=== PATIENT | female | born 1970 | race American Indian/Alaskan Native ===

== ENCOUNTER 2016-05-09 16:41 | Inpatient (IN) | payer MEDICAID ==
--- NOTE | 2016-05-09 17:57 | Emergency Department Report ---
Chief Complaint: Abdominal Pain Stated Complaint: RIGHT SIDE ABD PAIN Time Seen by Provider: 05/09/16 17:53 - HPI History of Present Illness: Patient reports low right abdominal pain, fever, N/V that started 05/02/16. Patient was recently discharged from the hospital on 04/27/16 for abdominal pain - ROS Review of Systems: all other systems are unremarkable except for documentation in HPI - Exam Vital Signs: Vital Signs 05/09/16 17:25 Temperature 98.1 F Pulse Rate 114 H Respiratory 24 Rate Blood Pressure 185/101 O2 Sat by Pulse 95 Oximetry Physical Exam: Gen: obese, uncomfortable Abd: soft, obese, tenderness to palpation RLQ, bowel sounds present, no rebound , guarding or rigid MSE screening note: Focused history and physical exam performed. Due to findings the following was ordered: antiemetic, radiology and laboratory studies ordered ED Disposition for MSE Condition: Stable Instructions: Abdominal Pain (ED)
[2016-05-09] MEDS ORDERED: ZOFRAN ODT PO ONE (18:02)
[2016-05-09 18:59] LABS: Basophils % (Auto) 0.4 % (0.0-1.8); Eosinophils % (Auto) 0.8 % (0.0-4.3); Hematocrit 35.4 % (30.3-42.9); Hemoglobin 11.1 gm/dl (10.1-14.3); Mean Corpuscular HGB Conc 31 % (30-34); Mean Corpuscular Volume 77 fl (79-97); Platelet Count 458 K/mm3 (140-440); Red Blood Count 4.62 M/mm3 (3.65-5.03); Red Cell Distribution Width 19.8 % (13.2-15.2); White Blood Count 12.4 K/mm3 (4.5-11.0)
[2016-05-09 19:10] LABS: INR 1.06 (0.87-1.13)
[2016-05-09 19:11] LABS: Mean Corpuscular Hemoglobin 24 pg (28-32); Partial Thromboplastin Time 33.2 Sec. (24.2-36.6)
[2016-05-09 19:33] LABS: Alanine Aminotransferase 8 units/L (7-56); Albumin 3.6 g/dL (3.9-5); Albumin/Globulin Ratio 0.7 %; Alkaline Phosphatase 57 units/L (35-129); BUN/Creatinine Ratio 8.57; Bilirubin,Total 0.3 mg/dL (0.1-1.2); Blood Urea Nitrogen 6 mg/dL (7-17); Calcium 9.1 mg/dL (8.4-10.2); Carbon Dioxide 27 mmol/L (22-30); Chloride 96.9 mmol/L (98-107); Glucose 136 mg/dL (65-100); Lipase 19 units/L (13-60); Potassium 3.5 mmol/L (3.6-5.0); Sodium 139 mmol/L (137-145); Total Protein 8.6 g/dL (6.3-8.2)
[2016-05-09 19:43] LABS: Anion Gap 19 mmol/L
--- NOTE | 2016-05-09 22:24 | Ultrasound Report ---
FINAL REPORT EXAM: US PELVIC COMPLETE HISTORY: right pelvic pain TECHNIQUE: Ultrasound pelvis transabdominal PRIORS: Comparison is dated April 22, 2016 FINDINGS: Uterus measures 11.8 x 5.5 x 5.7 centimeters At the fundus of the uterus there is a hypoechoic structure measuring 6.8 x 6.5 x 5.7 centimeters. Small this appears larger than on the prior exam however there is some limitation in the study due to patient body habitus. Endometrial stripe is not well visualized Right ovary is 7.6 x 6.[address] again there is some limitation in exam however ovarian torsion cannot be excluded. The ovary was not visualized on the prior study. The left ovary is not identified. IMPRESSION: Limited study due to patient body habitus Uterine fibroid which may be increased in size from prior exam. Enlarged uterus Left ovary not visualized The right ovary appears enlarged. It was not identified on the prior exam. Ovarian torsion cannot be excluded.
--- NOTE | 2016-05-09 22:25 | Ultrasound Report ---
FINAL REPORT EXAM: US TRANSVAGINAL HISTORY: right pelvic pain TECHNIQUE: Transvaginal ultrasound pelvis PRIORS: None. FINDINGS: Exam is limited. Uterus is incompletely visualized. Endometrial stripe is not measured. Multiple nabothian cysts are noted. The ovaries were not identified on transvaginal exam. IMPRESSION: Limited exam Nabothian cysts noted
[2016-05-09] MEDS ORDERED: TYLENOL PO ONE (23:16)
--- NOTE | 2016-05-10 02:11 | Admit Criteria Form ---
Admission Criteria Documentation: ABDOMINAL PAIN Clinical Indications for Admission to Inpatient Care (Place 'X' for any and all applicable criteria): Admission is indicated for ANY ONE of the following(1)(2)(3)(4)(5): [ ]I. Inpatient admission required rather than observation care (Also use Abdominal Pain: Observation Care, as appropriate) because of ANY ONE of the following: [ ]a) Severe pain requiring acute inpatient management [ ]b) Identification of etiology/finding that requires inpatient care (eg, aortic dissection, free air) [ ]c) Absent bowel sounds with complete ileus(6) [ ]d) Suspected toxic megacolon [ ]e) Severe electrolyte abnormalities requiring inpatient care [ ]f) High fever or infection requiring inpatient admission as indicated by ANY ONE of following(7)(8): [ ] i) Appropriate outpatient or observational care antimicrobial treatment unavailable, not effective, or not feasible [ ] ii) Documented bacteremia [ ] iii) Temperature > 104.9 degrees F (oral) [ ] iv) T >103.1 F (oral) or < 96.8 F(rectal) that does not respond to all emergency treatment measures [ ]g) Signs of intestinal obstruction [B] [ ]h) Hemodynamic instability [ ]i) IV fluid to replace significant ongoing losses (greater than 3 L/m2 per day) (12)(13) [ ]j) Percutaneous or open drainage (eg, abscess, biliary tract ) procedures [ ]k) Parenteral nutrition regimen that must be implemented on inpatient basis [ ]l) Other condition,treatment or monitoring requiring inpatient admission. [ ]II. Peritoneal signs present [ ]III. Surgery needed that cannot be performed on an ambulatory basis. [ ]IV. Evaluation requires patient to not eat or drink for extended period ( eg, more than 24 hours). [ ]V. Contraindications and/or Inappropriate clinical situations for Observational Care in patients with abdominal pain, when ANY ONE of the following is required: [ ]a) Thorough evaluation is required to prevent catastrophic events due to delays in diagnosing (e.g.Mesenteric ischemia) 1,3 [ ]b) Patient with severe pathology or with chronic symptoms unlikely to improve in the ED stay (3) [X]. General contraindications and/or Inappropriate clinical situations for Observational Care in patients with abdominal pain, when ANY ONE of the following is required: [ ]a) Prediction of prolongation of LOS based on ANY ONE of the following may be considered as a contraindication for observational care 2, 3, 4, 5, 6, 7, 8, 9, 10, 11 [ ]i) Age > 65 yrs. [ ]ii) Patient arriving by ambulance [ ]iii) Patient with high acuity [ ]iv) Patient requiring vital sign monitoring [ ]v) Patient on IV medication [X ]b) Systolic blood pressures 180mmHg 3,12 [ ]c) Patient with altered mental status including delirium and other alteration of consciousness, (3) [ ]d) Patient whose discharge disposition will be to a intermediate home or rehabilitation home should not be managed in Emergency Department Observation Unit. CMS rule requires 3 days hospital stay before such placement.3,13 [ ]e) Patient with failure to thrive due to broad array of etiologies 3,16,17 [ ]f) Inability to ambulate 3,14 Extended stay beyond goal length of stay may be needed for(2)(3): [ ]a) Persistent abdominal pain with suspected intra-abdominal process [ ]b) Diagnosed condition requiring continued stay (e.g., pancreatitis, complicated diverticulitis) [ ]c) Surgery (e.g., colectomy) The original [employer] content created by [employer] has been revised. The portions of the content which have been revised are identified through the use of italic text or in bold, and [facility] has neither reviewed nor approved the modified material.All other unmodified content is copyright [employer]. Please see references footnoted in the original [employer] edition 2016 Admission Criteria Met: Yes
[2016-05-10] MEDS ORDERED: MORPHINE IV ONE (03:31)
[2016-05-10] MEDS ORDERED: ZOFRAN IV ONE (03:31)
--- NOTE | 2016-05-10 03:42 | Emergency Department Report ---
HPI - General Chief Complaint: Abdominal Pain - HPI HPI: Room 5 The patient is a 46-year-old female presenting with a chief complaint of right lower quadrant abdominal pain. The patient was recently admitted to the hospital and discharged 04/19/2016 for right lower quadrant abdominal pain that was believed to be secondary to right ovarian vein thrombophlebitis. The patient was discharged on Augmentin but it appears she may have missed a few days as she states she still has Augmentin currently. The patient states her pain never went away after discharge and gradually began to increase. 3 days ago the pain became more severe. The patient admits to subjective fever in addition to nausea vomiting and diarrhea which she believes may have been secondary to some of the medication. The patient currently gives her pain a score of 10/10. The patient states yesterday the charge nurse from the floor where she was admitted called her to check on her. The patient informed her that her pain had worsened and the charge nurse instructed the patient to come back to the emergency department Location: Right Lower quadrant Duration: [see above] Quality: Sharp Severity: 10/10 Modifying factors: [see above] Context: [see above] Mode of transportation: [not driving] ED Past Medical Hx - Past Medical History Hx Hypertension: Yes Hx CVA: Yes Hx Asthma: Yes Additional medical history: anemia - Surgical History Additional Surgical History: , R knee surgery, right wrist surgery - Family History Family history: no significant - Social History Smoking Status: Never Smoker Substance Use Type: None - Medications Home Medications: Home Medications Medication Instructions Recorded Confirmed Last Taken Type NIFEdipine 90 mg PO DAILY 05/17/13 04/22/16 04/22/16 History Diazepam Tab [Valium] 5 mg PO TID PRN #15 tablet 02/17/15 04/22/16 04/22/16 Rx Amoxicillin/K Clav Tab [Augmentin 1 tab PO Q12HR #20 tab 04/28/16 Unknown Rx 875 mg] Cyclobenzaprine [Flexeril 10 MG 10 mg PO Q8H PRN #10 tablet 04/28/16 Unknown Rx TAB] Oxycodone HCl/Acetaminophen 1 each PO Q6HR PRN #12 tablet 04/28/16 Unknown Rx [Percocet 10/325 mg] ED Review of Systems ROS: Stated complaint: RIGHT SIDE ABD PAIN Other details as noted in HPI Comment: All other systems reviewed and negative Constitutional: fever (subjective) Eyes: denies: eye pain, eye discharge, vision change ENT: denies: ear pain, throat pain Respiratory: denies: cough, shortness of breath, wheezing Cardiovascular: denies: chest pain, palpitations Endocrine: no symptoms reported Gastrointestinal: abdominal pain, nausea, vomiting, diarrhea Genitourinary: denies: urgency, dysuria, discharge Musculoskeletal: denies: back pain, joint swelling, arthralgia Skin: denies: rash, lesions Neurological: denies: headache, weakness, paresthesias Psychiatric: denies: anxiety, depression Hematological/Lymphatic: denies: easy bleeding, easy bruising Physical Exam - Physical Exam Vital Signs: Vital Signs 05/09/16 05/10/16 17:25 02:41 Temperature 98.1 F Pulse Rate 114 H Respiratory 24 20 Rate Blood Pressure 185/101 O2 Sat by Pulse 95 94 Oximetry Physical Exam: GENERAL: The patient is well-developed well-nourished male sitting on stretcher holding right lower quadrant appearing to be in moderate discomfort. [] HEENT: Normocephalic. Atraumatic. Extraocular motions are intact. Patient has moist mucous membranes. NECK: Supple. Trachea midline CHEST/LUNGS: Clear to auscultation. There is no respiratory distress noted. HEART/CARDIOVASCULAR: Regular. There is no tachycardia. There is no gallop rub or murmur. ABDOMEN: Abdomen is soft, discomfort in the right lower quadrant. There is no tenderness to palpation elsewhere in the abdomen. Patient has normal bowel sounds. There is no abdominal distention. SKIN: There is no rash. There is no edema. There is no diaphoresis. NEURO: The patient is awake, alert, and oriented. The patient is cooperative. The patient has normal speech MUSCULOSKELETAL: There is no evidence of acute injury. ED Course Vital Signs 05/09/16 05/10/16 17:25 02:41 Temperature 98.1 F Pulse Rate 114 H Respiratory 24 20 Rate Blood Pressure 185/101 O2 Sat by Pulse 95 94 Oximetry ED Medical Decision Making - Lab Data Result diagrams: 05/09/16 18:36 05/09/16 18:36 Laboratory Tests 05/09/16 05/09/16 05/09/16 18:36 18:36 18:36 WBC 12.4 H RBC 4.62 Hgb 11.1 Hct 35.4 MCV 77 L MCH 24 L MCHC 31 RDW 19.8 H Plt Count 458 H Lymph % (Auto) 19.3 [place] % (Auto) 4.1 Eos % (Auto) 0.8 Baso % (Auto) 0.4 Lymph # 2.4 [place] # 0.5 Eos # 0.1 Baso # 0.0 Seg Neutrophils % 75.4 H Seg Neutrophils # 9.4 H PT 13.7 INR 1.06 APTT 33.2 Sodium 139 Potassium 3.5 L Chloride 96.9 L Carbon Dioxide 27 Anion Gap 19 BUN 6 L Creatinine 0.7 Estimated GFR > 60 BUN/Creatinine Ratio 8.57 Glucose 136 H Calcium 9.1 Total Bilirubin 0.3 AST 11 ALT 8 Alkaline Phosphatase 57 Total Protein 8.6 H Albumin 3.6 L Albumin/Globulin Ratio 0.7 Lipase 19 HCG, Quant 05/09/16 18:36 WBC RBC Hgb Hct MCV MCH MCHC RDW Plt Count Lymph % (Auto) [place] % (Auto) Eos % (Auto) Baso % (Auto) Lymph # [place] # Eos # Baso # Seg Neutrophils % Seg Neutrophils # PT INR APTT Sodium Potassium Chloride Carbon Dioxide Anion Gap BUN Creatinine Estimated GFR BUN/Creatinine Ratio Glucose Calcium Total Bilirubin AST ALT Alkaline Phosphatase Total Protein Albumin Albumin/Globulin Ratio Lipase HCG, Quant < 2 - Differential Diagnosis ovarian vein thrombophlebitis, renal colic Critical care attestation.: If time is entered above; I have spent that time in minutes in the direct care of this critically ill patient, excluding procedure time. ED Disposition Clinical Impression: Right lower quadrant abdominal pain, Leukocytosis Disposition: OP ADMITTED IP TO THIS HOSP Is pt being admited?: Yes Does the pt Need Aspirin: No Condition: Fair Instructions: Abdominal Pain (ED) Referrals: PRIMARY CARE, [Primary Care Provider] - 3-5 Days Time of Disposition: 05:44 (CT pending. Hospitalist paged)
--- NOTE | 2016-05-10 06:12 | Cat Scan Report ---
FINAL REPORT EXAM: CT ABDOMEN PELVIS W CON HISTORY: LOWER QUADRANT ABD PAIN TECHNIQUE: CT abdomen and pelvis performed. Images extend from diaphragm to pubic symphysis. 100 cc Omnipaque 300 IV was administered. No oral contrast was administered. Coronal and sagittal reformatted images were obtained. PRIORS: CT abdomen pelvis from 04/22/2016 and pelvic ultrasound 05/09/2016. FINDINGS: The visualized liver, spleen, pancreas, adrenal glands and kidneys demonstrate no significant abnormalities. Gallbladder is distended. No calcified gallstones are seen. There is inflammatory change in the right lower quadrant/right adnexal region. There is soft tissue prominence in the right adnexa which may reflect an enlarged right ovary. Although there is some inflammatory change adjacent to the appendix, the appendix is normal caliber. Inflammatory change likely emanates from the abnormality in the adnexal region. Again seen is some inflammatory change surrounding the right ovarian vein which appears to have increased in the interval. There is no abscess seen. There is no free intraperitoneal air. There is no abdominal aortic aneurysm. There is no evidence of intestinal obstruction. The bladder is unremarkable. IMPRESSION: Again seen is inflammatory change surrounding the right ovarian vein. This had appears slightly more prominent as compared to the prior. There is also increased inflammatory change and enlargement of the right ovary as compared to the prior. As suggested previously, ovarian venous phlebitis not excluded. Ovarian torsion is not excluded.
[2016-05-10 08:04] LABS: Bacteria,Urine 1+ /HPF (Negative); Bilirubin,Urine NEG (Negative); Blood,Urine NEG (Negative); Ketones,Urine NEG (Negative); Leukocyte Esterase,Urine LG (Negative); Mucus,Urine FEW /HPF; Nitrite,Urine NEG (Negative); Urobilinogen,Urine < 2.0 mg/dL (<2.0)
--- NOTE | 2016-05-10 08:17 | History and Physical Report ---
History of Present Illness Chief complaint: My stomach hurts on this side History of present illness: 46 YO female with MO, HTN, CVA, Asthma, Anemia, Obesity Hypoventillation Syndrome, right Ovarian Vein Thrombophlebitis presents to ED for evaluation. Pt states that she has been experiencing pain on her right side for the past 3 weeks. Pt states that the pain has become progressively worse over the past 3 days. Pt states that the pain in 02/07, localized to the RLQ. Pain not controlled with pain medication. Pt acknowledges subjective fever, Nausea, and vomiting, and inability to tolerate oral diet. Pt denies unintentional weight loss, night sweats, skin rashes, or recent ill contacts. Past History Past Medical History: anemia, hypertension, stroke Past Surgical History: , Other (Right Knee/Right Wrist surgery) Social history: , lives with family. denies: smoking, alcohol abuse Family history: diabetes, hypertension Medications and Allergies Allergies Allergy/AdvReac Type Severity Reaction Status Date / Time codeine Allergy Hives Verified 11/05/13 10:25 Home Medications Medication Instructions Recorded Confirmed Last Taken Type NIFEdipine 90 mg PO DAILY 05/17/13 05/10/16 04/22/16 History Diazepam Tab [Valium] 5 mg PO TID PRN #15 tablet 02/17/15 04/22/16 04/22/16 Rx Amoxicillin/K Clav Tab [Augmentin 1 tab PO Q12HR #20 tab 04/28/16 Unknown Rx 875 mg] Cyclobenzaprine [Flexeril 10 MG 10 mg PO Q8H PRN #10 tablet 04/28/16 Unknown Rx TAB] Oxycodone HCl/Acetaminophen 1 each PO Q6HR PRN #12 tablet 04/28/16 Unknown Rx [Percocet 10/325 mg] Review of Systems All systems: negative Gastrointestinal: abdominal pain, nausea, vomiting Exam - Constitutional Vitals: Temp Pulse Resp BP Pulse Ox 98.3 F 92 H 20 122/63 94 05/10/16 07:10 05/10/16 07:10 05/10/16 07:10 05/10/16 07:10 05/10/16 07:10 General appearance: Present: obese - EENT Eyes: Present: PERRL ENT: hearing intact, clear oral mucosa - Neck Neck: Present: supple, normal ROM - Respiratory Respiratory effort: normal Respiratory: bilateral: CTA - Cardiovascular Heart Sounds: Present: S1 & S2. Absent: rub, click - Extremities Extremities: pulses symmetrical, No edema Peripheral Pulses: within normal limits - Abdominal General gastrointestinal: Present: soft, non-tender, non-distended, normal bowel sounds Localized gastrointestinal: tender: RLQ Female genitourinary: Present: normal - Integumentary Integumentary: Present: clear, warm, dry - Musculoskeletal Musculoskeletal: gait normal, strength equal bilaterally - Psychiatric Psychiatric: appropriate mood/affect, intact judgment & insight - Neurologic Neurologic: CNII-XII intact, moves all extremities Results - Labs CBC & Chem 7: 05/09/16 18:36 05/09/16 18:36 Labs: Abnormal lab results 05/09/16 05/09/16 05/10/16 Range/Units 18:36 18:36 07:18 WBC 12.4 H (4.5-11.0) K/mm3 MCV 77 L (79-97) fl MCH 24 L (28-32) pg RDW 19.8 H (13.2-15.2) % Plt Count 458 H (140-440) K/mm3 Seg Neutrophils % 75.4 H (40.0-70.0) % Seg Neutrophils # 9.4 H (1.8-7.7) K/mm3 Potassium 3.5 L (3.6-5.0) mmol/L Chloride 96.9 L (98-107) mmol/L BUN 6 L (7-17) mg/dL Glucose 136 H (65-100) mg/dL Total Protein 8.6 H (6.3-8.2) g/dL Albumin 3.6 L (3.9-5) g/dL Urine WBC (Auto) 56.0 H (0.0-6.0) /HPF Assessment and Plan - Patient Problems (1) Sepsis due to urinary tract infection Current Visit: No Status: Acute Plan to address problem: IV abx, IVF, supportive care, serial lactate level, blood cultures, (2) Right lower quadrant abdominal pain Current Visit: Yes Status: Acute Plan to address problem: secondary to ovarian thrombophlebitis Pain control (3) Thrombophlebitis Current Visit: No Status: Acute Plan to address problem: Suspect thrombosis. Will treat with therapeutic lovenox, coumadin therapy, [employer] consult, serial abdominal exam. (4) Hypertension Current Visit: No Status: Chronic Qualifiers: Hypertension type: essential hypertension Qualified Code(s): I10 - Essential (primary) hypertension Plan to address problem: monitor bp q shift, (5) Morbid obesity Current Visit: No Status: Chronic Qualifiers: Obesity type: due to excess calories Qualified Code(s): E66.01 - Morbid ( severe) obesity due to excess calories Plan to address problem: Pt counseled regarding bariatric surgery. (6) DVT prophylaxis Current Visit: Yes Status: Acute
[2016-05-10] MEDS ORDERED: PROVENTIL IH PRN (08:45)
[2016-05-10] MEDS ORDERED: FLEXERIL PO PRN (08:49)
[2016-05-10] MEDS ORDERED: MOTRIN PO PRN (09:03)
[2016-05-10] MEDS ORDERED: PROCARDIA*For Tocolysis only PO SCH (10:00)
[2016-05-10] MEDS ORDERED: LOVENOX SUB-Q SCH (10:00)
[2016-05-10] MEDS ORDERED: LEVAQUIN 750MG/150ML 150 ML IV SCH (10:00)
[2016-05-10] MEDS ORDERED: TYLENOL PO PRN (11:00)
--- NOTE | 2016-05-10 12:50 | Consultation ---
History of Present Illness - Reason for Consult Consult date: 05/10/16 Right lower quadrant pain, enlarged right ovary - History of Present Illness This is a 46year old female, who was recently admitted for the same symptoms ~2weeks ago. At that time she was found to have possible right ovarian vein thrombophlebitis however her right ovary appeared normal. She improved and was allowed home to complete her course of antibiotics. Her pain has now recurred and now her CT scan, reviewed with Dr. López and campos [place], reveals increased inflammatory changes in the right adnexa and an enlarged right ovary. She admitted now for IV antibiotics and possible surgical intervention Past History Past Medical History: hypertension, pulmonary embolism, stroke Past Surgical History: (x3), Other (Right Knee/Right Wrist surgery) Social history: , lives with family. denies: smoking, alcohol abuse Family history: diabetes, hypertension Medications and Allergies Allergies Allergy/AdvReac Type Severity Reaction Status Date / Time codeine Allergy Hives Verified 11/05/13 10:25 Home Medications Medication Instructions Recorded Confirmed Last Taken Type NIFEdipine 90 mg PO DAILY 05/17/13 05/10/16 04/22/16 History Diazepam Tab [Valium] 5 mg PO TID PRN #15 tablet 02/17/15 04/22/16 04/22/16 Rx Amoxicillin/K Clav Tab [Augmentin 1 tab PO Q12HR #20 tab 04/28/16 Unknown Rx 875 mg] Cyclobenzaprine [Flexeril 10 MG 10 mg PO Q8H PRN #10 tablet 04/28/16 Unknown Rx TAB] Oxycodone HCl/Acetaminophen 1 each PO Q6HR PRN #12 tablet 04/28/16 Unknown Rx [Percocet 10/325 mg] Active Meds: Active Medications Acetaminophen (Tylenol) 650 mg PO Q4H PRN PRN Reason: Pain MILD(1-3)/Fever >100.5/ABDULLAHI Albuterol (Proventil) 2.5 mg IH Q3HRT PRN PRN Reason: Shortness Of Breath Cyclobenzaprine HCl (Flexeril) 10 mg PO Q8H PRN PRN Reason: Muscle Spasm Enoxaparin Sodium (Lovenox) 170 mg SUB-Q Q12HR SUSY Stop: 05/10/16 23:59 Last Admin: 05/10/16 10:48 Dose: 170 mg Levofloxacin/Dextrose (Levaquin 750mg/150ml) 150 mls @ 100 mls/hr IV Q24HR [facility] PRN Reason: Protocol Last Admin: 05/10/16 10:45 Dose: 100 mls/hr Ibuprofen (Motrin) 600 mg PO Q8H PRN PRN Reason: Pain, Moderate (4-6) Last Admin: 05/10/16 10:48 Dose: 600 mg Warfarin Sodium (Coumadin Pharmacy To Dose) 1 each PO PKCONSULT [facility] PRN Reason: Protocol Warfarin Sodium (Coumadin) 7.5 mg PO DAILY@1700 [facility] Exam - Constitutional Vitals: Temp Pulse Resp BP Pulse Ox 98.4 F 84 20 137/82 99 05/10/16 11:31 05/10/16 11:31 05/10/16 11:31 05/10/16 11:31 05/10/16 11:31 Results - Labs CBC & Chem 7: 05/09/16 18:36 05/09/16 18:36 - Imaging and Cardiology CT scan - pelvis: report reviewed, image reviewed (Ultrasound reports and images reviewed. ) Assessment and Plan - Patient Problems (1) Right ovarian enlargement Current Visit: Yes Status: Acute (2) Right lower quadrant abdominal pain Current Visit: Yes Status: Acute Plan to address problem: Options were reviewed with her: observation vs surgical intervention in the form if removing the ovary and other indicated procedures. Extensively discussed risks of surgery especially with her obesity that places her at higher risk for complications such as bleeding, infection or injury to her bowel or bladder. Explained her pain may persist or recur even after the ovary is removed. She was informed her ovary may be normal. She was alos informed she may require a laparotomy (make an incision through her previous section incision) to perform the surgery. Questions were encouraged and answered. At this time she desires to proceed with surgery after medical clearance has been obtained. Consent was reviewed and signed. Plan of care discussed with Dr. Pham, awaiting medical clearance Will consult Dr. Franz to determine if she needs an appendectomy Continue antibiotics Hold Lovenox and warfarin (3) Asthma Current Visit: No Status: Chronic (4) Hypertension Current Visit: No Status: Chronic Qualifiers: Hypertension type: essential hypertension Qualified Code(s): I10 - Essential (primary) hypertension (5) Morbid obesity Current Visit: No Status: Chronic Qualifiers: Obesity type: due to excess calories Qualified Code(s): E66.01 - Morbid ( severe) obesity due to excess calories (6) History of pulmonary embolism Current Visit: No Status: Acute
--- NOTE | 2016-05-10 16:59 | Event Note ---
Date: 05/10/16 Patient evaluated.ABG ordered. Pending ABG she is medically cleared. Duonebs ordered.
[2016-05-10] MEDS ORDERED: COUMADIN PO SCH (17:00)
--- NOTE | 2016-05-10 17:09 | Anesthesia Consultation ---
Anesthesia Consult and Med Hx - Airway Anesthetic Teeth Evaluation: Good ROM Head & Neck: Adequate Mental/Hyoid Distance: Adequate Mallampati Class: Class III Intubation Access Assessment: Possibly Difficult - Pulmonary Exam CTA: Yes - Cardiac Exam Cardiac Exam: RRR - Pre-Operative Health Status ASA Pre-Surgery Classification: ASA3 Proposed Anesthetic Plan: General - Pulmonary Hx Asthma: Yes (inhaler PRN) SOB: Yes (hx of PE) COPD: No Hx Pneumonia: No Hx Sleep Apnea: Yes (on CPAP trial) - Cardiovascular System Hx Hypertension: Yes - Central Nervous System CVA: Yes (5 years ago , no residual weakness) - Gastrointestinal Hx Gastroesophageal Reflux Disease: Yes (takes no Meds) - Endocrine Hx End Stage Renal Disease: No - Hematic Hx Anemia: Yes - Other Systems Hx Obesity: Yes (Morbid Obesity BMI 74.4) - Additional Comments Anesthesia Medical History Comments: No prior anesthesia problems. Hx of PE, CVA , HTN,Asthma,GERD. KELLE, sepsis from UTI, anemia, and Morbid Obesity. Pt instructed as of NPO status after MN tonight.
--- NOTE | 2016-05-10 23:47 | Consultation ---
HISTORY OF PRESENT ILLNESS: I was called by Dr. Mahoney to see this patient. She is an obese lady. She is 46. She was in this hospital about 3 weeks ago because of pain to the right ____ abdomen. She was found to have? thrombosis of ovarian vein on the right side. The patient went home and apparently today she came with severe pain to the area. She had nausea, but no vomiting. She had a CAT scan that showed some edema of the right ovary? a cystic area, but the appendix did not look that bad. I was called to evaluate her to make sure that the appendix was normal. The patient had no free intraperitoneal air. She had no aneurysm and there was no evidence for any intestinal obstruction and the bladder was unremarkable. She was admitted by Dr. Keshav Pham. She had anemia and she has a case of asthma with CVA, with hypoventilation syndrome. PHYSICAL EXAMINATION: GENERAL: Showed an obese female. VITAL SIGNS: Her BMI is 74. The BSA is 2.8. She weighs 172 kg. She is 5 feet. HEAD AND NECK: Essentially negative. NECK: Supple. CHEST: Essentially clear to me. HEART: Sound normal. BREASTS: Symmetrical. ABDOMEN: Protuberant, soft, benign. Moderate to severe tenderness in the right lower quadrant area, good bowel sounds. EXTREMITIES: Showed no evidence of any edema. 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 I doubt whether there is any appendicitis in that area. I had a lengthy talk with the patient. Dr. Mahoney asked me to be with her in surgery tomorrow to evaluate that area with a scope. The patient gives a history of section in the past. JOB# [id number] DONALDOK/PAVEL
[2016-05-11] MEDS ORDERED: PROVENTIL IH NR (00:01)
[2016-05-11] MEDS ORDERED: LACTATED RINGERS 1,000 ML IV SCH ×2 (00:01→13:00)
[2016-05-11] MEDS ORDERED: PEPCID PO NR ×3 (00:01→07:05)
[2016-05-11] MEDS ORDERED: VERSED IV NR (00:01)
[2016-05-11] MEDS ORDERED: ANCEF/STERILE WATER 2 GM/20 ML 20 ML IV NR (05:30)
[2016-05-11] MEDS ORDERED: ZEMURON IV ONE ×3 (06:50→10:21)
[2016-05-11] MEDS ORDERED: XYLOCAINE MPF 2% ONE (06:50)
[2016-05-11] MEDS ORDERED: SUBLIMAZE ONE ×2 (06:50→11:37)
[2016-05-11] MEDS ORDERED: DIPRIVAN 10 MG/ML IV ONE (06:51)
[2016-05-11] MEDS ORDERED: VERSED ONE (06:59)
[2016-05-11] MEDS ORDERED: NEURONTIN PO NR (07:05)
[2016-05-11] MEDS ORDERED: NACL 0.9% 1000 ML 1,000 ML IV SCH (07:05)
[2016-05-11] MEDS ORDERED: VALIUM PO ONE (07:06)
--- NOTE | 2016-05-11 07:08 | Anesthesia Day of Surgery ---
Anesthesia Day of Surgery - Day of Surgery Patient Examined: Yes Patient H&P Reviewed: Yes Patient is NPO: Yes
[2016-05-11] MEDS ORDERED: NACL BACTERIOSTATIC INFILTRATI ONE (07:43)
[2016-05-11 08:02] LABS: ISTAT Base Excess 4; ISTAT HCO3 28.7; ISTAT PCO2 44.8 (35-45); ISTAT PH 7.414 (7.35-7.45); ISTAT PO2 115 (80-105); ISTAT SO2 99; ISTAT TCO2 30
[2016-05-11] MEDS ORDERED: NACL 0.9% ONE (08:17)
[2016-05-11] MEDS ORDERED: ROBINUL ONE (08:17)
[2016-05-11] MEDS ORDERED: NACL 0.9% 1000 ML ONE (08:17)
[2016-05-11] MEDS ORDERED: QUELICIN ONE (08:17)
[2016-05-11 08:26] LABS: INR 1.03 (0.87-1.13)
[2016-05-11 08:28] LABS: Basophils % (Auto) 0.2 % (0.0-1.8); Eosinophils % (Auto) 1.4 % (0.0-4.3); Hematocrit 28.8 % (30.3-42.9); Mean Corpuscular HGB Conc 31 % (30-34); Mean Corpuscular Hemoglobin 24 pg (28-32); Mean Corpuscular Volume 77 fl (79-97); Platelet Count 359 K/mm3 (140-440); Red Blood Count 3.74 M/mm3 (3.65-5.03); Red Cell Distribution Width 19.5 % (13.2-15.2); White Blood Count 12.1 K/mm3 (4.5-11.0)
[2016-05-11 08:34] LABS: Anion Gap 17 mmol/L; BUN/Creatinine Ratio 11.42; Blood Urea Nitrogen 8 mg/dL (7-17); Calcium 8.7 mg/dL (8.4-10.2); Carbon Dioxide 28 mmol/L (22-30); Chloride 99.5 mmol/L (98-107); Glucose 108 mg/dL (65-100); Potassium 3.7 mmol/L (3.6-5.0); Sodium 141 mmol/L (137-145)
[2016-05-11] MEDS ORDERED: NACL 0.9% IR ONE ×2 (09:39→10:00)
[2016-05-11] MEDS ORDERED: ZOFRAN ONE (09:54)
[2016-05-11] MEDS ORDERED: DECADRON ONE (09:54)
[2016-05-11] MEDS ORDERED: METHYLENE BLUE IV ONE (10:00)
[2016-05-11] MEDS ORDERED: WATER FOR IRRIG STERILE IR ONE (10:00)
[2016-05-11] MEDS ORDERED: NEOSPORIN GU IR ONE (10:00)
[2016-05-11] MEDS ORDERED: BLOXIVERZ ONE (11:07)
[2016-05-11] MEDS ORDERED: NEO SYNEPHRINE ONE (11:07)
[2016-05-11] MEDS ORDERED: ANCEF ONE (12:03)
[2016-05-11] MEDS ORDERED: NARCAN 0.4 MG/1 ML IV PRN (12:39)
[2016-05-11] MEDS ORDERED: ZOFRAN IV PRN (12:39)
--- NOTE | 2016-05-11 12:45 | Operative Report ---
PREOPERATIVE DIAGNOSIS: Pelvic mass. POSTOPERATIVE DIAGNOSES: Large pelvic abscess with a lot of scar tissue and adhesions. PROCEDURE: Intraoperative consultation with cystoscopy, bilateral stenting, and palpation of the ureter. SURGEONS: 1. Aditya Mcneil M.D. 2. Diann Mahoney MD ANESTHESIA: General. FINDINGS: This is a woman who is already asleep. She is morbidly obese with a large pelvic mass and that involved a lot of adhesions to the bowel. A urological consultation was obtained to just be sure that there was efflux from both ureters. DESCRIPTION OF PROCEDURE: The patient was brought to the operating room and placed on the operating table. Following induction of anesthesia, she underwent an exploratory laparotomy. During the procedure, there were lots of adhesions posteriorly and Urology was called. After the mass was excised, we came in and cystoscopy showed efflux from both orifices. A Glidewire easily went up on each ureter, we had an open-ended catheter placed in order to palpate them through the incision. The left ureter was easily palpated well away from the operative field. The right side where there was all this reactive tissue and infection it was hard to palpate, we could palpate the stent proximal towards the mid ureter and upper ureter. We did not open up the entire retroperitoneum to expose it. The patient tolerated the procedure well. She will be closed by Dr. Mahoney. There were no complications. We left the external stents adherent to the [place]. This can be removed by RESPITE CARE PROVIDER as discussed. Plan as per surgery and RESPITE CARE PROVIDER. JOB# [id number] PATTY/PAVEL
[2016-05-11] MEDS: DILAUDID IV PRN ×2 (13:00→13:05)
[2016-05-11] MEDS ORDERED: POLYCILLIN IM SCH (13:00)
[2016-05-11] MEDS: DILAUDID PCA 6MG/30ML IV SCH (13:09)
[2016-05-11] MEDS ORDERED: DILAUDID ONE (13:10)
[2016-05-11] MEDS ORDERED: NORMODYNE IV ONE ×2 (13:36→15:00)
--- NOTE | 2016-05-11 14:06 | Post Anesthesia Evaluation ---
- Post Anesthesia Evaluation Patient Participated: Yes Airway Patent: Yes Stable Respiratory Function: Yes Nausea/Vomiting: No Temp > 96.8F: Yes Pain Manageable: Yes Adequeate Hydration: Yes Anesthesia Complications: No Block Receding Appropriately: Not Applicable Patient on Ventilator: No
--- NOTE | 2016-05-11 14:18 | Progress Note ---
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 --Status post cystoscopy Continue supportive care --Urinary tract infection Continue IV antibiotics follow cultures --Hypertension; moderate control Recurrent antihypertensives and when necessary medications --Morbid obesity Nighty modification and exercise as tolerated and weight reduction when patient is medically stable Patient may benefit by outpatient bariatric surgical procedure once medically stable --DVT prophylaxis With Lovenox consults and and recommendations noted and appreciated And of care discussed with the patient and her nurse as well as the case management History Interval history: Patient seen and evaluated Sameer underwent Diagnostic laparoscopy, laparoscopic lysis of adhesions, laparoscopic appendectomy, open laparotomy, small bowel resection, end-to-end anastomosis, cystoscopy, partial omentectomy, salpingo-oophorectomy. Patient is sedated complaints of pain Vital signs reviewed Hospitalist Physical - Constitutional Vitals: Temp Pulse Resp BP Pulse Ox 97.4 F L 82 24 132/87 96 05/11/16 12:52 05/11/16 13:45 05/11/16 13:45 05/11/16 13:45 05/11/16 13:45 General appearance: Present: no acute distress, well-nourished, obese (morbidly obese) - EENT Eyes: Present: PERRL, EOM intact - Neck Neck: Present: supple, normal ROM - Respiratory Respiratory effort: normal Respiratory: bilateral: diminished, negative: rales, rhonchi, wheezing - Cardiovascular Rhythm: regular Heart Sounds: Present: S1 & S2 - Extremities Extremities: No edema, normal temperature - Abdominal General gastrointestinal: tender, absent bowel sounds, other (surgical dressing , drain intact) - Integumentary Integumentary: Present: clear, warm - Psychiatric Psychiatric: appropriate mood/affect, cooperative - Neurologic Neurologic: CNII-XII intact, moves all extremities Results - Labs CBC & Chem 7: 05/12/16 05:27 05/12/16 05:27 Labs: Laboratory Last Values WBC 12.1 K/mm3 (4.5-11.0) H 05/11/16 07:50 RBC 3.74 M/mm3 (3.65-5.03) 05/11/16 07:50 Hgb 9.0 gm/dl (10.1-14.3) L 05/11/16 07:50 Hct 28.8 % (30.3-42.9) L D 05/11/16 07:50 MCV 77 fl (79-97) L 05/11/16 07:50 MCH 24 pg (28-32) L 05/11/16 07:50 MCHC 31 % (30-34) 05/11/16 07:50 RDW 19.5 % (13.2-15.2) H 05/11/16 07:50 Plt Count 359 K/mm3 (140-440) 05/11/16 07:50 Lymph % (Auto) 14.0 % (13.4-35.0) 05/11/16 07:50 [place] % (Auto) 4.0 % (0.0-7.3) 05/11/16 07:50 Eos % (Auto) 1.4 % (0.0-4.3) 05/11/16 07:50 Baso % (Auto) 0.2 % (0.0-1.8) 05/11/16 07:50 Lymph # 1.7 K/mm3 (1.2-5.4) 05/11/16 07:50 [place] # 0.5 K/mm3 (0.0-0.8) 05/11/16 07:50 Eos # 0.2 K/mm3 (0.0-0.4) 05/11/16 07:50 Baso # 0.0 K/mm3 (0.0-0.1) 05/11/16 07:50 Seg Neutrophils % 80.4 % (40.0-70.0) H 05/11/16 07:50 Seg Neutrophils # 9.7 K/mm3 (1.8-7.7) H 05/11/16 07:50 PT 13.4 Sec. (12.2-14.9) 05/11/16 07:50 INR 1.03 (0.87-1.13) 05/11/16 07:50 APTT 33.2 Sec. (24.2-36.6) 05/09/16 18:36 POC ABG pH 7.414 (7.35-7.45) 05/11/16 07:47 POC ABG pCO2 44.8 (35-45) 05/11/16 07:47 POC ABG pO2 115 (80-105) H 05/11/16 07:47 POC ABG HCO3 28.7 05/11/16 07:47 POC ABG Total CO2 30 05/11/16 07:47 POC ABG O2 Sat 99 05/11/16 07:47 POC ABG Base Excess 4 05/11/16 07:47 FiO2 32 % 05/11/16 07:47 Sodium 141 mmol/L (137-145) 05/11/16 07:50 Potassium 3.7 mmol/L (3.6-5.0) 05/11/16 07:50 Chloride 99.5 mmol/L (98-107) 05/11/16 07:50 Carbon Dioxide 28 mmol/L (22-30) 05/11/16 07:50 Anion Gap 17 mmol/L 05/11/16 07:50 BUN 8 mg/dL (7-17) 05/11/16 07:50 Creatinine 0.7 mg/dL (0.7-1.2) 05/11/16 07:50 Estimated GFR > 60 ml/min 05/11/16 07:50 BUN/Creatinine Ratio 11.42 % 05/11/16 07:50 Glucose 108 mg/dL (65-100) H 05/11/16 07:50 Lactic Acid 0.8 mmol/L (0.7-2.0) 05/10/16 10:40 Calcium 8.7 mg/dL (8.4-10.2) 05/11/16 07:50 Total Bilirubin 0.3 mg/dL (0.1-1.2) 05/09/16 18:36 AST 11 units/L (5-40) 05/09/16 18:36 ALT 8 units/L (7-56) 05/09/16 18:36 Alkaline Phosphatase 57 units/L (35-129) 05/09/16 18:36 Total Protein 8.6 g/dL (6.3-8.2) H 05/09/16 18:36 Albumin 3.6 g/dL (3.9-5) L 05/09/16 18:36 Albumin/Globulin Ratio 0.7 % 05/09/16 18:36 Lipase 19 units/L (13-60) 05/09/16 18:36 HCG, Quant < 2 mIU/mL (0-4) 05/09/16 18:36 Urine Color Yellow (Yellow) 05/10/16 07:18 Urine Turbidity Slightly-cloudy (Clear) 05/10/16 07:18 Urine pH 5.0 (5.0-7.0) 05/10/16 07:18 Urine Protein 100 mg/dl mg/dL (Negative) 05/10/16 07:18 Urine Glucose (UA) Neg mg/dL (Negative) 05/10/16 07:18 Urine Ketones Neg mg/dL (Negative) 05/10/16 07:18 Urine Blood Neg (Negative) 05/10/16 07:18 Urine Nitrite Neg (Negative) 05/10/16 07:18 Urine Bilirubin Neg (Negative) 05/10/16 07:18 Urine Urobilinogen < 2.0 mg/dL (<2.0) 05/10/16 07:18 Ur Leukocyte Esterase Lg (Negative) 05/10/16 07:18 Urine WBC (Auto) 56.0 /HPF (0.0-6.0) H 05/10/16 07:18 Urine RBC (Auto) 12.0 /HPF (0.0-6.0) 05/10/16 07:18 U Epithel Cells (Auto) 10.0 /HPF (0-13.0) 05/10/16 07:18 Urine Bacteria (Auto) 1+ /HPF (Negative) 05/10/16 07:18 Urine Mucus Few /HPF 05/10/16 07:18 Blood Type AB POSITIVE 05/11/16 07:50 Antibody Screen Negative 05/11/16 07:50
--- NOTE | 2016-05-11 15:40 | Operative Report ---
PREOPERATIVE DIAGNOSIS: Right pelvic mass, large right ovarian mass with abscess formation and infection with concretion of the appendix to that area. POSTOPERATIVE DIAGNOSIS: Right pelvic mass, large right ovarian mass with abscess formation and infection with concretion of the appendix to that area. SURGERY: Diagnostic laparoscopy, laparoscopic lysis of extensive adhesions, laparoscopic appendectomy, conversion to open laparotomy, small bowel resection with an end-to-end anastomosis, cystoscopy by Dr. Mcneil, partial omentectomy. ANESTHESIA: General. BLOOD LOSS: About 150 mL. COSURGEON: Diann Mahoney MD, who did the gynecological aspect of the operation. My involvement is the lysis with scope and small bowel resection and appendectomy with the scope. DESCRIPTION OF PROCEDURE: With the patient in supine position, prepped and draped in usual fashion. Dr. Mahoney started the case by putting 3 probes in the abdomen, one in the upper midline, one right lateral aspect, and one in left upper aspect. We could see the adhesions that were very dense to the omentum to the anterior abdominal wall with concretion. These were lysed slowly with the scope and the ultrasound and knife, Harmonic. After that maneuvering, I was able to see the large uterus. On the right side, the appendix was stuck to a concretion of severe inflammation and the mass appears good 6 x 6 x 6 cm. The whole area was matted together. While dissecting it, there was a loop of small intestine stuck to it. A small perforation was performed there, then we had to open. This was done via a midline incision from above the umbilicus to the suprapubic area, at which point, Dr. Mahoney took the removal of the right adnexal mass with an open technique. Then I did repair the small bowel by resecting a portion of it for about ____cm with an end-to-end anastomosis using for that purpose the CHARMAINE-75 with reinforcement with 3-0 Vicryl. We were well satisfied, the area was then irrigated with sterile normal saline. I left a drain into the pelvis through a small stab wound incision in the left lower quadrant. Then Dr. Mcneil came in to do his portion namely to ensure the integrity of the tract on that area. Then the wound was closed as per description of Dr. Mahoney. The patient withstood the operation well. She was transferred to the recovery room in good condition. JOB# [id number] TERESA/PAVEL
[2016-05-11] MEDS: REGLAN IV SCH ×2 (16:15→23:01)
[2016-05-11] MEDS: POLYCILLIN/NS 2 GM/100 ML 100 ML IV SCH ×2 (18:24→23:02)
[2016-05-11] MEDS: CLEOCIN 900 MG/50 mL 50 ML IV SCH ×2 (18:24→23:01)
[2016-05-11] MEDS: GARAMYCIN IV SCH (18:32)
[2016-05-11] MEDS: NACL 0.9% IV SCH (18:32)
--- NOTE | 2016-05-11 19:52 | Progress Note ---
Assessment and Plan - Patient Problems (1) PID (pelvic inflammatory disease) Current Visit: Yes Status: Acute Plan to address problem: s/p RSO con't triples routine post op care (2) Surgery follow-up Current Visit: Yes Status: Acute Plan to address problem: -pain seems controlled -con't NGT as per gen surgery orders/recommendations -routine post op care -pt currently stable. 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 She inquired about drinking water or ice chips and I advised that due to her just having bowel sx today, she would remain NPO. I d/w details of the sx and all questions were addressed and answered. Patient reports: pain well controlled, no flatus Objective - Vital Signs Latest vital signs: Vital Signs Temp Pulse Pulse Resp BP BP Pulse Ox 05/11/16 16:27 16 05/11/16 16:00 98.7 F 80 16 137/81 05/11/16 15:09 16 05/11/16 13:45 82 24 132/87 96 05/11/16 13:30 99 H 22 168/90 96 05/11/16 13:15 100 H 22 158/88 99 05/11/16 13:09 22 05/11/16 13:05 20 05/11/16 13:00 20 L 20 158/91 100 05/11/16 12:55 98 H 22 149/87 98 05/11/16 12:52 97.4 F L 101 H 20 163/83 98 05/11/16 08:05 16 05/11/16 07:55 99 05/11/16 07:20 98 F 91 H 16 158/77 98 05/11/16 00:00 98.3 F 88 20 132/79 99 Intake and Output 05/11/16 05/11/16 05/11/16 06:59 14:59 22:59 Intake Total 50 Output Total 250 Balance -200 Intake: IV 50 Oral 0 Output: Urine 250 Other: Total, Intake Amount 0 Voiding Method Toilet - Exam Lungs: Present: Normal air movement Abdomen: Present: soft. Absent: distention, guarding Incision: Present: normal, dry, intact - Labs Labs: Abnormal lab results 05/11/16 05/11/16 05/11/16 Range/Units 07:47 07:50 07:50 WBC 12.1 H (4.5-11.0) K/mm3 Hgb 9.0 L (10.1-14.3) gm/dl Hct 28.8 L D (30.3-42.9) % MCV 77 L (79-97) fl MCH 24 L (28-32) pg RDW 19.5 H (13.2-15.2) % Seg Neutrophils % 80.4 H (40.0-70.0) % Seg Neutrophils # 9.7 H (1.8-7.7) K/mm3 POC ABG pO2 115 H (80-105) Glucose 108 H (65-100) mg/dL
[2016-05-12] MEDS: LOVENOX SUB-Q SCH ×3 (05:03→22:00)
[2016-05-12] MEDS: REGLAN IV SCH (05:03)
[2016-05-12 06:08] LABS: Hematocrit 27.3 % (30.3-42.9); Hemoglobin 8.6 gm/dl (10.1-14.3); Mean Corpuscular HGB Conc 31 % (30-34); Mean Corpuscular Hemoglobin 25 pg (28-32); Mean Corpuscular Volume 78 fl (79-97); Platelet Count 407 K/mm3 (140-440); Red Cell Distribution Width 20.1 % (13.2-15.2); White Blood Count 12.9 K/mm3 (4.5-11.0)
[2016-05-12] MEDS ORDERED: PROVENTIL IH PRN ×2 (06:09→06:12)
[2016-05-12 06:10] LABS: INR 1.15 (0.87-1.13)
[2016-05-12 06:13] LABS: Anion Gap 17 mmol/L; BUN/Creatinine Ratio 12.85; Blood Urea Nitrogen 9 mg/dL (7-17); Calcium 8.1 mg/dL (8.4-10.2); Carbon Dioxide 25 mmol/L (22-30); Chloride 101.9 mmol/L (98-107); Glucose 149 mg/dL (65-100); Sodium 139 mmol/L (137-145)
[2016-05-12] MEDS: POLYCILLIN/NS 2 GM/100 ML 100 ML IV SCH ×3 (06:21→17:08)
[2016-05-12] MEDS: CLEOCIN 900 MG/50 mL 50 ML IV SCH ×3 (06:21→22:00)
--- NOTE | 2016-05-12 09:04 | Progress Note ---
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 --Status post cystoscopy Continue supportive care --Urinary tract infection Continue IV antibiotics follow cultures --Hypertension; moderate control Recurrent antihypertensives and when necessary medications --Morbid obesity Nighty modification and exercise as tolerated and weight reduction when patient is medically stable Patient may benefit by outpatient bariatric surgical procedure once medically stable --DVT prophylaxis With Lovenox consults and and recommendations noted and appreciated plan of care discussed with the patient and her nurse as well as the case management History Interval history: Patient seen and evaluated medical records reviewed No new events reported by the nursing staff Complains of some pain Alert awake oriented 3 in mild distress secondary to pain Vital signs reviewed Hospitalist Physical - Constitutional Vitals: Temp Pulse Resp BP Pulse Ox 98.3 F 99 H 20 171/83 96 05/12/16 08:00 05/12/16 08:00 05/12/16 08:00 05/12/16 08:00 05/12/16 08:00 General appearance: Present: no acute distress, well-nourished, obese (morbidly obese) - EENT Eyes: Present: PERRL, EOM intact - Neck Neck: Present: supple, normal ROM - Respiratory Respiratory effort: normal Respiratory: bilateral: diminished, negative: rales, rhonchi, wheezing - Cardiovascular Rhythm: regular Heart Sounds: Present: S1 & S2 - Extremities Extremities: no ischemia, pulses intact, pulses symmetrical - Abdominal General gastrointestinal: soft, non-tender, non-distended, absent bowel sounds - Integumentary Integumentary: Present: clear, warm - Psychiatric Psychiatric: appropriate mood/affect, cooperative - Neurologic Neurologic: CNII-XII intact, moves all extremities Results - Labs CBC & Chem 7: 05/12/16 05:27 05/12/16 05:27 Labs: Laboratory Last Values WBC 12.9 K/mm3 (4.5-11.0) H 05/12/16 05:27 RBC 3.50 M/mm3 (3.65-5.03) L 05/12/16 05:27 Hgb 8.6 gm/dl (10.1-14.3) L 05/12/16 05:27 Hct 27.3 % (30.3-42.9) L 05/12/16 05:27 MCV 78 fl (79-97) L 05/12/16 05:27 MCH 25 pg (28-32) L 05/12/16 05:27 MCHC 31 % (30-34) 05/12/16 05:27 RDW 20.1 % (13.2-15.2) H 05/12/16 05:27 Plt Count 407 K/mm3 (140-440) 05/12/16 05:27 Lymph % (Auto) 6.8 % (13.4-35.0) L 05/12/16 05:27 [place] % (Auto) 4.7 % (0.0-7.3) 05/12/16 05:27 Eos % (Auto) 0.0 % (0.0-4.3) 05/12/16 05:27 Baso % (Auto) 0.0 % (0.0-1.8) 05/12/16 05:27 Lymph # 0.9 K/mm3 (1.2-5.4) L 05/12/16 05:27 [place] # 0.6 K/mm3 (0.0-0.8) 05/12/16 05:27 Eos # 0.0 K/mm3 (0.0-0.4) 05/12/16 05:27 Baso # 0.0 K/mm3 (0.0-0.1) 05/12/16 05:27 Seg Neutrophils % 88.5 % (40.0-70.0) H 05/12/16 05:27 Seg Neutrophils # 11.4 K/mm3 (1.8-7.7) H 05/12/16 05:27 PT 14.6 Sec. (12.2-14.9) 05/12/16 05:27 INR 1.15 (0.87-1.13) H 05/12/16 05:27 APTT 33.2 Sec. (24.2-36.6) 05/09/16 18:36 POC ABG pH 7.414 (7.35-7.45) 05/11/16 07:47 POC ABG pCO2 44.8 (35-45) 05/11/16 07:47 POC ABG pO2 115 (80-105) H 05/11/16 07:47 POC ABG HCO3 28.7 05/11/16 07:47 POC ABG Total CO2 30 05/11/16 07:47 POC ABG O2 Sat 99 05/11/16 07:47 POC ABG Base Excess 4 05/11/16 07:47 FiO2 32 % 05/11/16 07:47 Sodium 139 mmol/L (137-145) 05/12/16 05:27 Potassium 5.0 mmol/L (3.6-5.0) D 05/12/16 05:27 Chloride 101.9 mmol/L (98-107) 05/12/16 05:27 Carbon Dioxide 25 mmol/L (22-30) 05/12/16 05:27 Anion Gap 17 mmol/L 05/12/16 05:27 BUN 9 mg/dL (7-17) 05/12/16 05:27 Creatinine 0.7 mg/dL (0.7-1.2) 05/12/16 05:27 Estimated GFR > 60 ml/min 05/12/16 05:27 BUN/Creatinine Ratio 12.85 % 05/12/16 05:27 Glucose 149 mg/dL (65-100) H 05/12/16 05:27 Lactic Acid 0.8 mmol/L (0.7-2.0) 05/10/16 10:40 Calcium 8.1 mg/dL (8.4-10.2) L 05/12/16 05:27 Total Bilirubin 0.3 mg/dL (0.1-1.2) 05/09/16 18:36 AST 11 units/L (5-40) 05/09/16 18:36 ALT 8 units/L (7-56) 05/09/16 18:36 Alkaline Phosphatase 57 units/L (35-129) 05/09/16 18:36 Total Protein 8.6 g/dL (6.3-8.2) H 05/09/16 18:36 Albumin 3.6 g/dL (3.9-5) L 05/09/16 18:36 Albumin/Globulin Ratio 0.7 % 05/09/16 18:36 Lipase 19 units/L (13-60) 05/09/16 18:36 HCG, Quant < 2 mIU/mL (0-4) 05/09/16 18:36 Urine Color Yellow (Yellow) 05/10/16 07:18 Urine Turbidity Slightly-cloudy (Clear) 05/10/16 07:18 Urine pH 5.0 (5.0-7.0) 05/10/16 07:18 Urine Protein 100 mg/dl mg/dL (Negative) 05/10/16 07:18 Urine Glucose (UA) Neg mg/dL (Negative) 05/10/16 07: Urine Ketones Neg mg/dL (Negative) 05/10/16 07:18 Urine Blood Neg (Negative) 05/10/16 07:18 Urine Nitrite Neg (Negative) 05/10/16 07:18 Urine Bilirubin Neg (Negative) 05/10/16 07:18 Urine Urobilinogen < 2.0 mg/dL (<2.0) 05/10/16 07:18 Ur Leukocyte Esterase Lg (Negative) 05/10/16 07:18 Urine WBC (Auto) 56.0 /HPF (0.0-6.0) H 05/10/16 07:18 Urine RBC (Auto) 12.0 /HPF (0.0-6.0) 05/10/16 07:18 U Epithel Cells (Auto) 10.0 /HPF (0-13.0) 05/10/16 07:18 Urine Bacteria (Auto) 1+ /HPF (Negative) 05/10/16 07:18 Urine Mucus Few /HPF 05/10/16 07:18 Blood Type AB POSITIVE 05/11/16 07:50 Antibody Screen Negative 05/11/16 07:50
[2016-05-12] MEDS: DIFLUCAN 100 ML IV SCH (10:07)
[2016-05-12] MEDS: DILAUDID PCA 6MG/30ML IV SCH (10:40)
[2016-05-12] MEDS: NACL 0.9% IV SCH (15:00)
[2016-05-12] MEDS: GARAMYCIN IV SCH (15:00)
--- NOTE | 2016-05-12 15:14 | Operative Report ---
Operative Report Operative Report: Date of procedure: 05/11/2016 Pre-operative diagnosis: 1. Right lower quadrant pain 2. Enlarging right ovary CT scan report 3. Body mass index 74 Post-operative diagnosis: 1. Right lower quadrant pain 2. Enlarging right ovary 3. Body mass index 74 4. Severe extensive right pelvic, lower abdominal adhesions 5. Right tubo-ovarian abscess 6. Uterine fibroids Procedure name(s): 1. Laparoscopic lysis of adhesions 2. Laparoscopic appendectomy performed by Dr. Franz 3. Exploratory laparotomy a. Repair of enterotomy performed by Dr. Franz b. Lysis of adhesions c. Right salpingo-oophorectomy Surgeon: Diann Mahoney MD Co-surgeon(s): Dr. Samuel Tinsley Anesthesia: General anesthesia Findings: Omental adhesions to the anterior abdominal wall. Extensive and firm, hard adhesions of the small intestine to the right adnexa and pelvic sidewall and ovary. Appendix was also adhered to the superior aspect of the right adnexa. Right ovary was adhered to the right pelvic sidewall. Moderate amount of purulent fluid drained from the right tubo-ovarian structure during dissection. The sling normal left ovary and tube. Small uterine fibroids. Procedure: This is a 46-year-old female who presented with worsening right lower quadrant pain. She was recently admitted approximately 2 weeks ago with the same complaint. At that time she had what appeared to be normal ovaries but imaging and possible right ovarian vein thrombophlebitis. Due to her morbid obesity ovarian torsion was unable to be assessed. Her gonorrhea and chlamydia tests were negative. She received antibiotics and pain medicine and was allow home. Patient stated the pain increased and presented to the ED for further evaluation. CT scan now revealed a large right adnexal structure was not present during her previous evaluation. Options were reviewed with patient and she desired to proceed with surgical intervention. After risks, benefits, complication, consequences and alternatives were discussed the patient and she voiced her understanding and desired to proceed as taken to the OR. General anesthesia was induced. She was placed in the dorsolithotomy position. She was then prepped and draped in sterile fashion. A Deleon catheter was introduced into the bladder. A sponge stick was introduced into the vagina. Sterile gloves were placed and attention was turned to the abdomen. A midline supraumbilical incision was made and a 5 mm Optiview trocar with camera and laparoscope attached was introduced through this incision. No bowel, bladder, or major vascular or ureteral injury noted. She was slowly placed in mild Trendelenburg position. Omental adhesions to the anterior abdominal wall were noted. Additional trochars were placed as follows : 5 mm bladeless trochars were placed in the midclavicular lower abdominal region through 5 mm incisions under direct visualization. Again no bowel, bladder, and ureteral, or major vascular injury was noted. Using the 5 mm [place] LigaSure device the omental adhesions were removed. Initially the right pelvic sidewall anatomy was obscured by the small intestines that were adhered to the pelvic brim and adnexa. With both blunt and sharp dissection the bowel was released from the adnexa. At this point the appendix was recognized to be adhered to what appeared to be the pelvic brim as well as the right infundibular pelvic ligament. An additional 5 mm bladeless trocar was placed into an incision made in the midline through her previous incision below the umbilicus. Also a 12 mm bladless trocar was placed in the supraumbilical midline region approximately 2 cm above the umbilicus. The remainder of the bowel was released from the adnexa. An enterotomy was noted in the small intestines the decision was made to proceed with a laparotomy. Patient was taken out of Trendelenburg position, trochars were removed. The midline incision was made and extended to the fascia which was incised and extended to the superior-inferior direction. Incision was extended around the umbilicus for better visualization. The enterotomy was identified and resection was performed by Dr. Franz(please see Dr. Franz's operative report ) Then attention was turned to the right adnexa. There is extensive inflammatory changes and infection making the structures and anatomy markers difficult to identify. The tubo-ovarian structure was identified and dissected away from the pelvic sidewall. Moderate amount of purulent fluid drained from the abscess during resection. Then the right utero-ovarian ligament was clamped cut and suture ligated. Bleeding was noted on the pelvic sidewall that was made hemostatic with 0 Vicryl in figure of 8 interrupted suture. Then what appeared to be the infundibulopelvic ligament was clamped cut and suture ligated. An structure was removed. The pelvis was then irrigated with warm normal saline and hemostasis was noted. Jovanni was placed over the operative field. Due to concern for right ureteral injury, Dr. Mcneil was consulted.( Please refer to Dr. Mcneil this report) Once ureteral integrity was evaluated and appeared to be without injury, the abdomen and pelvis were again irrigated with warm normal saline. Seprafilm was placed. The fascia was reapproximated using 2 double-stranded PDS from the superior to midline and then the inferior to midline. The subcuticular adipose tissue was reapproximated using 0 Vicryl in interrupted [id number] suture. The skin incisions were approximated using surgical stainless steel khalif. The trocar incisions were reapproximated using 3-0 Monocryl in a subcuticular manner. Counts were correct. Patient tolerated procedure well stick to recovery room in stable condition
--- NOTE | 2016-05-12 16:40 | Progress Note ---
Assessment and Plan - Patient Problems (1) S/P unilateral salpingo-oophorectomy Current Visit: Yes Status: Acute Plan to address problem: Patient has (B) ureteral stents that accounts for bloody urine (2) S/P appendectomy Current Visit: Yes Status: Acute (3) Iatrogenic enterotomy Current Visit: Yes Status: Acute (4) Right ovarian enlargement Current Visit: Yes Status: Resolved (5) Right lower quadrant abdominal pain Current Visit: Yes Status: Resolved (6) Asthma Current Visit: No Status: Chronic (7) Hypertension Current Visit: No Status: Chronic Qualifiers: Hypertension type: essential hypertension Qualified Code(s): I10 - Essential (primary) hypertension (8) Morbid obesity Current Visit: No Status: Chronic Qualifiers: Obesity type: due to excess calories Qualified Code(s): E66.01 - Morbid ( severe) obesity due to excess calories (9) History of pulmonary embolism Current Visit: No Status: Inactive (10) DVT prophylaxis Current Visit: Yes Status: Acute (11) Anemia Current Visit: No Status: Chronic Qualifiers: Anemia type: other cause Subjective Date of service: 05/12/16 Principal diagnosis: POD #1 s/p RSO, Ex lap, dx laproscopy, laproscopic appendectomy,SB repair Interval history: Alert and appropriately responsive, desires to eat Objective - Constitutional Vitals: Vital Signs - 12hr 05/12/16 05/12/16 05/12/16 05:43 08:00 10:00 Temperature 98.7 F 98.3 F Pulse Rate [ 98 H 99 H Right Radial] Respiratory 20 20 Rate Blood Pressure 174/98 171/83 [Right Arm] O2 Sat by Pulse 100 96 98 Oximetry 05/12/16 05/12/16 12:00 16:08 Temperature 98.4 F 98.7 F Pulse Rate [ 100 H 102 H Right Radial] Respiratory 20 20 Rate Blood Pressure 162/79 159/75 [Right Arm] O2 Sat by Pulse Oximetry General appearance: Present: no acute distress, well-nourished - Respiratory Respiratory effort: normal Respiratory: negative: CTA - Breasts Breasts: deferred, normal - Cardiovascular Rhythm: regular Extremities: no ischemia, No edema - Genitourinary Female genitourinary: deferred - Integumentary Integumentary: clear, warm, dry (incision dressed/dry) - Psychiatric Psychiatric: appropriate mood/affect - Labs CBC & Chem 7: 05/12/16 05:27 05/12/16 05:27 Labs: Abnormal lab results 05/12/16 05/12/16 05/12/16 Range/Units 05:27 05:27 05:27 WBC 12.9 H (4.5-11.0) K/mm3 RBC 3.50 L (3.65-5.03) M/mm3 Hgb 8.6 L (10.1-14.3) gm/dl Hct 27.3 L (30.3-42.9) % MCV 78 L (79-97) fl MCH 25 L (28-32) pg RDW 20.1 H (13.2-15.2) % Lymph % (Auto) 6.8 L (13.4-35.0) % Lymph # 0.9 L (1.2-5.4) K/mm3 Seg Neutrophils % 88.5 H (40.0-70.0) % Seg Neutrophils # 11.4 H (1.8-7.7) K/mm3 INR 1.15 H (0.87-1.13) Glucose 149 H (65-100) mg/dL Calcium 8.1 L (8.4-10.2) mg/dL
[2016-05-13] MEDS: POLYCILLIN/NS 2 GM/100 ML 100 ML IV SCH ×4 (00:12→18:37)
[2016-05-13] MEDS: REGLAN IV SCH (00:13)
[2016-05-13] MEDS: CLEOCIN 900 MG/50 mL 50 ML IV SCH ×3 (05:30→22:10)
[2016-05-13 06:02] LABS: INR 1.19 (0.87-1.13)
[2016-05-13] MEDS: LOVENOX SUB-Q SCH ×2 (10:34→22:00)
[2016-05-13] MEDS: DIFLUCAN 100 ML IV SCH (10:35)
[2016-05-13] MEDS: D5W/0.45% NACL/KCL 20 MEQ 1,000 ML IV SCH (10:36)
--- NOTE | 2016-05-13 10:54 | Progress Note ---
Assessment and Plan Assessment and plan: --Abdominal pain/status post laparoscopic appendectomy/small bowel resection omentectomy Surgery following postoperative care Review fluids pain management wound care --Urinary tract infection Continue IV antibiotics follow cultures --Status post salpingo-oophorectomy Continue postoperative care [employer] GR[employer]ER following --Status post cystoscopy Continue supportive care --Hypertension; moderate control Recurrent antihypertensives and when necessary medications --Morbid obesity Nighty modification and exercise as tolerated and weight reduction when patient is medically stable Patient may benefit by outpatient bariatric surgical procedure once medically stable --DVT prophylaxis With Lovenox consults and and recommendations noted and appreciated plan of care discussed with the patient and her nurse as well as the case management History Interval history: Patient seen and evaluated medical records reviewed Patient feels slightly better no new complaints NG tube discontinued Alert awake oriented 3 not in acute distress Vital signs reviewed Hospitalist Physical - Constitutional Vitals: Temp Pulse Resp BP Pulse Ox 98.5 F 101 H 16 154/76 99 05/13/16 08:00 05/13/16 08:00 05/13/16 08:40 05/13/16 08:00 05/13/16 08:00 General appearance: Present: no acute distress, well-nourished, obese (morbidly obese) - EENT Eyes: Present: PERRL, EOM intact - Neck Neck: Present: supple, normal ROM - Respiratory Respiratory effort: normal Respiratory: bilateral: diminished, negative: rales, rhonchi, wheezing - Cardiovascular Rhythm: regular Heart Sounds: Present: S1 & S2 - Extremities Extremities: no ischemia, pulses intact, pulses symmetrical - Abdominal General gastrointestinal: soft, tender, absent bowel sounds - Integumentary Integumentary: Present: clear, warm - Psychiatric Psychiatric: appropriate mood/affect, cooperative - Neurologic Neurologic: CNII-XII intact, moves all extremities Results - Labs CBC & Chem 7: 05/12/16 05:27 05/12/16 05:27 Labs: Laboratory Last Values WBC 12.9 K/mm3 (4.5-11.0) H 05/12/16 05:27 RBC 3.50 M/mm3 (3.65-5.03) L 05/12/16 05:27 Hgb 8.6 gm/dl (10.1-14.3) L 05/12/16 05:27 Hct 27.3 % (30.3-42.9) L 05/12/16 05:27 MCV 78 fl (79-97) L 05/12/16 05:27 MCH 25 pg (28-32) L 05/12/16 05:27 MCHC 31 % (30-34) 05/12/16 05:27 RDW 20.1 % (13.2-15.2) H 05/12/16 05:27 Plt Count 407 K/mm3 (140-440) 05/12/16 05:27 Lymph % (Auto) 6.8 % (13.4-35.0) L 05/12/16 05:27 [place] % (Auto) 4.7 % (0.0-7.3) 05/12/16 05:27 Eos % (Auto) 0.0 % (0.0-4.3) 05/12/16 05:27 Baso % (Auto) 0.0 % (0.0-1.8) 05/12/16 05:27 Lymph # 0.9 K/mm3 (1.2-5.4) L 05/12/16 05:27 [place] # 0.6 K/mm3 (0.0-0.8) 05/12/16 05:27 Eos # 0.0 K/mm3 (0.0-0.4) 05/12/16 05:27 Baso # 0.0 K/mm3 (0.0-0.1) 05/12/16 05:27 Seg Neutrophils % 88.5 % (40.0-70.0) H 05/12/16 05:27 Seg Neutrophils # 11.4 K/mm3 (1.8-7.7) H 05/12/16 05:27 PT 15.0 Sec. (12.2-14.9) H 05/13/16 05:22 INR 1.19 (0.87-1.13) H 05/13/16 05:22 APTT 33.2 Sec. (24.2-36.6) 05/09/16 18:36 POC ABG pH 7.414 (7.35-7.45) 05/11/16 07:47 POC ABG pCO2 44.8 (35-45) 05/11/16 07:47 POC ABG pO2 115 (80-105) H 05/11/16 07:47 POC ABG HCO3 28.7 05/11/16 07:47 POC ABG Total CO2 30 05/11/16 07:47 POC ABG O2 Sat 99 05/11/16 07:47 POC ABG Base Excess 4 05/11/16 07:47 FiO2 32 % 05/11/16 07:47 Sodium 139 mmol/L (137-145) 05/12/16 05:27 Potassium 5.0 mmol/L (3.6-5.0) D 05/12/16 05:27 Chloride 101.9 mmol/L (98-107) 05/12/16 05:27 Carbon Dioxide 25 mmol/L (22-30) 05/12/16 05:27 Anion Gap 17 mmol/L 05/12/16 05:27 BUN 9 mg/dL (7-17) 05/12/16 05:27 Creatinine 0.7 mg/dL (0.7-1.2) 05/12/16 05:27 Estimated GFR > 60 ml/min 05/12/16 05:27 BUN/Creatinine Ratio 12.85 % 05/12/16 05:27 Glucose 149 mg/dL (65-100) H 05/12/16 05:27 Lactic Acid 0.8 mmol/L (0.7-2.0) 05/10/16 10:40 Calcium 8.1 mg/dL (8.4-10.2) L 05/12/16 05:27 Total Bilirubin 0.3 mg/dL (0.1-1.2) 05/09/16 18:36 AST 11 units/L (5-40) 05/09/16 18:36 ALT 8 units/L (7-56) 05/09/16 18:36 Alkaline Phosphatase 57 units/L (35-129) 05/09/16 18:36 Total Protein 8.6 g/dL (6.3-8.2) H 05/09/16 18:36 Albumin 3.6 g/dL (3.9-5) L 05/09/16 18:36 Albumin/Globulin Ratio 0.7 % 05/09/16 18:36 Lipase 19 units/L (13-60) 05/09/16 18:36 HCG, Quant < 2 mIU/mL (0-4) 05/09/16 18:36 Urine Color Yellow (Yellow) 05/10/16 07:18 Urine Turbidity Slightly-cloudy (Clear) 05/10/16 07: Urine pH 5.0 (5.0-7.0) 05/10/16 07:18 Urine Protein 100 mg/dl mg/dL (Negative) 05/10/16 07:18 Urine Glucose (UA) Neg mg/dL (Negative) 05/10/16 07:18 Urine Ketones Neg mg/dL (Negative) 05/10/16: Urine Blood Neg (Negative) 05/10/16: Urine Nitrite Neg (Negative) 05/10/16 07: Urine Bilirubin Neg (Negative) 05/10/16 07: Urine Urobilinogen < 2.0 mg/dL (<2.0) 05/10/16 07:18 Ur Leukocyte Esterase Lg (Negative) 05/10/16 07:18 Urine WBC (Auto) 56.0 /HPF (0.0-6.0) H 05/10/16 07:18 Urine RBC (Auto) 12.0 /HPF (0.0-6.0) 05/10/16 07:18 U Epithel Cells (Auto) 10.0 /HPF (0-13.0) 05/10/16 07:18 Urine Bacteria (Auto) 1+ /HPF (Negative) 05/10/16 07: Urine Mucus Few /HPF 05/10/16 07:18 Blood Type AB POSITIVE 05/11/16 07:50 Antibody Screen Negative 05/11/16 07:50
--- NOTE | 2016-05-13 11:10 | XRay Report ---
Portable chest: Postoperative respiratory changes. Comparison is made to the examination of April 21, 2016. The lungs appear clear. Right hilum is slightly more common than the left but this is not significantly changed from prior study and most likely is secondary to rotation. The heart is grossly normal in size with no vascular congestion. A nasogastric tube is in good position. Impression: No acute cardiopulmonary findings suspected.
[2016-05-13] MEDS: DILAUDID PCA 6MG/30ML IV SCH (12:06)
[2016-05-13] MEDS ORDERED: PROVENTIL IH PRN (12:46)
--- NOTE | 2016-05-13 13:11 | Progress Note ---
Assessment and Plan - Patient Problems (1) S/P unilateral salpingo-oophorectomy Current Visit: Yes Status: Acute Plan to address problem: UO good, becoming clear, will consider removing vidales and stents after NG is removed (2) S/P appendectomy Current Visit: Yes Status: Acute (3) Iatrogenic enterotomy Current Visit: Yes Status: Acute (4) Asthma Current Visit: No Status: Chronic (5) Hypertension Current Visit: No Status: Chronic Qualifiers: Hypertension type: essential hypertension Qualified Code(s): I10 - Essential (primary) hypertension (6) Morbid obesity Current Visit: No Status: Chronic Qualifiers: Obesity type: due to excess calories Qualified Code(s): E66.01 - Morbid ( severe) obesity due to excess calories (7) DVT prophylaxis Current Visit: Yes Status: Acute (8) Anemia Current Visit: No Status: Chronic Qualifiers: Anemia type: other cause Subjective Date of service: 05/13/16 Principal diagnosis: POD #2 s/p RSO, Ex lap, dx laproscopy, laproscopic appendectomy,SB repair Interval history: Resting in bed, alert and appropriately responsive, somewhat teary b/c she missed the of her granddaughter last pm. She started her period. States + flatus Objective - Constitutional Vitals: Vital Signs - 12hr 05/13/16 05/13/16 05/13/16 02:40 04:40 06:17 Temperature Pulse Rate [ Apical] Respiratory 20 20 20 Rate Blood Pressure [Right Arm] O2 Sat by Pulse Oximetry 05/13/16 05/13/16 05/13/16 06:46 08:00 08:40 Temperature 98.6 F 98.5 F Pulse Rate [ 102 H 101 H Apical] Respiratory 20 18 16 Rate Blood Pressure 155/86 154/76 [Right Arm] O2 Sat by Pulse 100 99 Oximetry 05/13/16 05/13/16 05/13/16 10:40 12:06 12:42 Temperature Pulse Rate [ Apical] Respiratory 16 18 Rate Blood Pressure [Right Arm] O2 Sat by Pulse 98 Oximetry 05/13/16 12:44 Temperature Pulse Rate [ Apical] Respiratory Rate Blood Pressure [Right Arm] O2 Sat by Pulse 98 Oximetry General appearance: Present: mild distress, obese - Respiratory Respiratory effort: normal Respiratory: bilateral: CTA (decreased at (B) base) - Breasts Breasts: deferred Extremities: no ischemia, No edema - Gastrointestinal General gastrointestinal: Present: normal bowel sounds - Genitourinary Female genitourinary: deferred - Integumentary Integumentary: clear, warm, dry (vertical incision dressed, no drainage, trocar incisions c/d/i) - Psychiatric Psychiatric: appropriate mood/affect - Labs CBC & Chem 7: 05/12/16 05:27 05/12/16 05:27 Labs: Abnormal lab results 05/13/16 Range/Units 05:22 PT 15.0 H (12.2-14.9) Sec. INR 1.19 H (0.87-1.13)
[2016-05-14] MEDS: D5W/0.45% NACL/KCL 20 MEQ 1,000 ML IV SCH (00:42)
[2016-05-14] MEDS: POLYCILLIN/NS 2 GM/100 ML 100 ML IV SCH ×4 (00:43→18:09)
[2016-05-14 05:59] LABS: Basophils % (Auto) 0.4 % (0.0-1.8); Eosinophils % (Auto) 1.5 % (0.0-4.3); Hematocrit 20.6 % (30.3-42.9); Hemoglobin 6.6 gm/dl (10.1-14.3); Mean Corpuscular HGB Conc 32 % (30-34); Mean Corpuscular Volume 77 fl (79-97); Platelet Count 336 K/mm3 (140-440); Red Blood Count 2.69 M/mm3 (3.65-5.03); Red Cell Distribution Width 19.8 % (13.2-15.2); White Blood Count 10.1 K/mm3 (4.5-11.0)
[2016-05-14 06:10] LABS: Mean Corpuscular Hemoglobin 25 pg (28-32)
[2016-05-14] MEDS: CLEOCIN 900 MG/50 mL 50 ML IV SCH ×3 (06:17→22:25)
[2016-05-14 06:20] LABS: BUN/Creatinine Ratio 11.66; Blood Urea Nitrogen 7 mg/dL (7-17); Calcium 8.4 mg/dL (8.4-10.2); Carbon Dioxide 34 mmol/L (22-30); Chloride 102.8 mmol/L (98-107); Glucose 122 mg/dL (65-100); Magnesium 1.7 mg/dL (1.7-2.3); Sodium 144 mmol/L (137-145)
[2016-05-14 06:24] LABS: Anion Gap 11 mmol/L
[2016-05-14 06:25] LABS: Potassium 3.7 mmol/L (3.6-5.0)
[2016-05-14] MEDS ORDERED: NACL 0.9% 500 ML 500 ML IV ONE (07:47)
--- NOTE | 2016-05-14 07:59 | Progress Note ---
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 --Status post cystoscopy, Continue supportive care --Hypertension; moderate control Recurrent antihypertensives and when necessary medications --Morbid obesity Nighty modification and exercise as tolerated and weight reduction when patient is medically stable Patient may benefit by outpatient bariatric surgical procedure once medically stable --DVT prophylaxis ,With Lovenox consults and and recommendations noted and appreciated plan of care discussed with the patient and her nurse as well as the case management Closely monitor H&H and transfuse additional PRBC if needed History Interval history: Patient seen and evaluated medical records reviewed No new events reported by the nursing staff of the patient Patient is cheerful sitting in chair Significant drop in H&H Alert awake oriented 3 not in acute distress vital signs reviewed Hospitalist Physical - Constitutional Vitals: Temp Pulse Resp BP Pulse Ox 98.3 F 90 18 138/80 100 05/13/16 16:30 05/13/16 16:30 05/13/16 16:30 05/13/16 16:30 05/13/16 16:30 General appearance: Present: no acute distress, well-nourished, obese (morbidly obese) - EENT Eyes: Present: PERRL, EOM intact - Neck Neck: Present: supple, normal ROM - Respiratory Respiratory effort: normal Respiratory: bilateral: diminished, negative: rales, rhonchi, wheezing - Cardiovascular Rhythm: regular Heart Sounds: Present: S1 & S2 - Extremities Extremities: no ischemia, pulses intact, pulses symmetrical - Abdominal General gastrointestinal: soft, non-tender, non-distended, hypoactive bowel sounds, other (surgical dressing intact) - Integumentary Integumentary: Present: clear, warm - Psychiatric Psychiatric: appropriate mood/affect, cooperative - Neurologic Neurologic: CNII-XII intact, moves all extremities Results - Labs CBC & Chem 7: 05/14/16 05:43 05/14/16 05:43 Labs: Laboratory Last Values WBC 10.1 K/mm3 (4.5-11.0) 05/14/16 05:43 RBC 2.69 M/mm3 (3.65-5.03) L 05/14/16 05:43 Hgb 6.6 gm/dl (10.1-14.3) L 05/14/16 05:43 Hct 20.6 % (30.3-42.9) L D 05/14/16 05:43 MCV 77 fl (79-97) L 05/14/16 05:43 MCH 25 pg (28-32) L 05/14/16 05:43 MCHC 32 % (30-34) 05/14/16 05:43 RDW 19.8 % (13.2-15.2) H 05/14/16 05:43 Plt Count 336 K/mm3 (140-440) 05/14/16 05:43 Lymph % (Auto) 24.5 % (13.4-35.0) 05/14/16 05:43 [place] % (Auto) 8.8 % (0.0-7.3) H 05/14/16 05:43 Eos % (Auto) 1.5 % (0.0-4.3) 05/14/16 05:43 Baso % (Auto) 0.4 % (0.0-1.8) 05/14/16 05:43 Lymph # 2.5 K/mm3 (1.2-5.4) 05/14/16 05:43 [place] # 0.9 K/mm3 (0.0-0.8) H 05/14/16 05:43 Eos # 0.2 K/mm3 (0.0-0.4) 05/14/16 05:43 Baso # 0.0 K/mm3 (0.0-0.1) 05/14/16 05:43 Seg Neutrophils % 64.8 % (40.0-70.0) 05/14/16 05:43 Seg Neutrophils # 6.5 K/mm3 (1.8-7.7) 05/14/16 05:43 PT 15.0 Sec. (12.2-14.9) H 05/13/16 05:22 INR 1.19 (0.87-1.13) H 05/13/16 05:22 APTT 33.2 Sec. (24.2-36.6) 05/09/16 18:36 POC ABG pH 7.414 (7.35-7.45) 05/11/16 07:47 POC ABG pCO2 44.8 (35-45) 05/11/16 07:47 POC ABG pO2 115 (80-105) H 05/11/16 07:47 POC ABG HCO3 28.7 05/11/16 07:47 POC ABG Total CO2 30 05/11/16 07:47 POC ABG O2 Sat 99 05/11/16 07:47 POC ABG Base Excess 4 05/11/16 07:47 FiO2 32 % 05/11/16 07:47 Sodium 144 mmol/L (137-145) 05/14/16 05:43 Potassium 3.7 mmol/L (3.6-5.0) D 05/14/16 05:43 Chloride 102.8 mmol/L (98-107) 05/14/16 05:43 Carbon Dioxide 34 mmol/L (22-30) H D 05/14/16 05:43 Anion Gap 11 mmol/L 05/14/16 05:43 BUN 7 mg/dL (7-17) 05/14/16 05:43 Creatinine 0.6 mg/dL (0.7-1.2) L 05/14/16 05:43 Estimated GFR > 60 ml/min 05/14/16 05:43 BUN/Creatinine Ratio 11.66 % 05/14/16 05:43 Glucose 122 mg/dL (65-100) H 05/14/16 05:43 Lactic Acid 0.8 mmol/L (0.7-2.0) 05/10/16 10:40 Calcium 8.4 mg/dL (8.4-10.2) 05/14/16 05:43 Magnesium 1.7 mg/dL (1.7-2.3) 05/14/16 05:43 Total Bilirubin 0.3 mg/dL (0.1-1.2) 05/09/16 18:36 AST 11 units/L (5-40) 05/09/16 18:36 ALT 8 units/L (7-56) 05/09/16 18:36 Alkaline Phosphatase 57 units/L (35-129) 05/09/16 18:36 Total Protein 8.6 g/dL (6.3-8.2) H 05/09/16 18:36 Albumin 3.6 g/dL (3.9-5) L 05/09/16 18:36 Albumin/Globulin Ratio 0.7 % 05/09/16 18:36 Lipase 19 units/L (13-60) 05/09/16 18:36 HCG, Quant < 2 mIU/mL (0-4) 05/09/16 18:36 Urine Color Yellow (Yellow) 05/10/16 07:18 Urine Turbidity Slightly-cloudy (Clear) 05/10/16 07:18 Urine pH 5.0 (5.0-7.0) 05/10/16 07:18 Urine Protein 100 mg/dl mg/dL (Negative) 05/10/16 07:18 Urine Glucose (UA) Neg mg/dL (Negative) 05/10/16 07:18 Urine Ketones Neg mg/dL (Negative) 05/10/16 07:18 Urine Blood Neg (Negative) 05/10/16 07:18 Urine Nitrite Neg (Negative) 05/10/16 07:18 Urine Bilirubin Neg (Negative) 05/10/16 07:18 Urine Urobilinogen < 2.0 mg/dL (<2.0) 05/10/16 07:18 Ur Leukocyte Esterase Lg (Negative) 05/10/16 07:18 Urine WBC (Auto) 56.0 /HPF (0.0-6.0) H 05/10/16 07:18 Urine RBC (Auto) 12.0 /HPF (0.0-6.0) 05/10/16 07:18 U Epithel Cells (Auto) 10.0 /HPF (0-13.0) 05/10/16 07:18 Urine Bacteria (Auto) 1+ /HPF (Negative) 05/10/16 07:18 Urine Mucus Few /HPF 05/10/16 07:18 Blood Type AB POSITIVE 05/11/16 07:50 Antibody Screen Negative 05/11/16 07:50
[2016-05-14] MEDS: DIFLUCAN 100 ML IV SCH (10:06)
[2016-05-14] MEDS: LOVENOX SUB-Q SCH ×2 (10:07→22:00)
--- NOTE | 2016-05-14 12:00 | Progress Note ---
Subjective Patient Reports: Positive: feels better, pain is less, flatus, no bowel movement Narrative: looks improving , ambulatory . noted Hg 6+ to recieve blood 2 units , Pt having her Period , on Ice chips , will advance diet . Objective Vital Signs - 12hr 05/14/16 09:38 O2 Sat by Pulse 99 Oximetry - Labs 05/14/16 05:43 05/14/16 05:43 Diabetes panel 05/14/16 Range/Units 05:43 Sodium 144 (137-145) mmol/L Potassium 3.7 D (3.6-5.0) mmol/L Chloride 102.8 (98-107) mmol/L Carbon Dioxide 34 H D (22-30) mmol/L BUN 7 (7-17) mg/dL Creatinine 0.6 L (0.7-1.2) mg/dL Glucose 122 H (65-100) mg/dL Calcium 8.4 (8.4-10.2) mg/dL Calcium panel 05/14/16 Range/Units 05:43 Calcium 8.4 (8.4-10.2) mg/dL Pituitary panel 05/14/16 Range/Units 05:43 Sodium 144 (137-145) mmol/L Potassium 3.7 D (3.6-5.0) mmol/L Chloride 102.8 (98-107) mmol/L Carbon Dioxide 34 H D (22-30) mmol/L BUN 7 (7-17) mg/dL Creatinine 0.6 L (0.7-1.2) mg/dL Glucose 122 H (65-100) mg/dL Calcium 8.4 (8.4-10.2) mg/dL Adrenal panel 05/14/16 Range/Units 05:43 Sodium 144 (137-145) mmol/L Potassium 3.7 D (3.6-5.0) mmol/L Chloride 102.8 (98-107) mmol/L Carbon Dioxide 34 H D (22-30) mmol/L BUN 7 (7-17) mg/dL Creatinine 0.6 L (0.7-1.2) mg/dL Glucose 122 H (65-100) mg/dL Calcium 8.4 (8.4-10.2) mg/dL
[2016-05-14] MEDS ORDERED: NACL 0.9% 500 ML 500 ML ONE ×2 (12:14→17:47)
--- NOTE | 2016-05-14 12:48 | Progress Note ---
Assessment and Plan - Patient Problems (1) Iatrogenic enterotomy Current Visit: Yes Status: Acute Plan to address problem: Care followed by Dr. Franz (2) S/P unilateral salpingo-oophorectomy Current Visit: Yes Status: Acute Plan to address problem: Patient postop course is progressing. NG tube has been removed. Blood transfusion of about to be started (3) Anemia due to blood loss, acute Current Visit: Yes Status: Acute Plan to address problem: Blood transfusion of about to be started Subjective Date of service: 05/14/16 Patient Reports: Positive: feels better, still having pain (Patient coming from bathroom), fever Objective Vital Signs - 12hr 05/14/16 09:38 O2 Sat by Pulse 99 Oximetry - General physical appearance moderate pain, obese - Respiratory normal respiratory effort - Abdomen soft, other (banishment small amount of blood present) - Integumentary no rash - Neurologic normal coordination - Psychiatric oriented to time, oriented to person, oriented to place, speech is normal, memory intact - Labs 05/14/16 05:43 05/14/16 05:43 Diabetes panel 05/14/16 Range/Units 05:43 Sodium 144 (137-145) mmol/L Potassium 3.7 D (3.6-5.0) mmol/L Chloride 102.8 (98-107) mmol/L Carbon Dioxide 34 H D (22-30) mmol/L BUN 7 (7-17) mg/dL Creatinine 0.6 L (0.7-1.2) mg/dL Glucose 122 H (65-100) mg/dL Calcium 8.4 (8.4-10.2) mg/dL Calcium panel 05/14/16 Range/Units 05:43 Calcium 8.4 (8.4-10.2) mg/dL Pituitary panel 05/14/16 Range/Units 05:43 Sodium 144 (137-145) mmol/L Potassium 3.7 D (3.6-5.0) mmol/L Chloride 102.8 (98-107) mmol/L Carbon Dioxide 34 H D (22-30) mmol/L BUN 7 (7-17) mg/dL Creatinine 0.6 L (0.7-1.2) mg/dL Glucose 122 H (65-100) mg/dL Calcium 8.4 (8.4-10.2) mg/dL Adrenal panel 05/14/16 Range/Units 05:43 Sodium 144 (137-145) mmol/L Potassium 3.7 D (3.6-5.0) mmol/L Chloride 102.8 (98-107) mmol/L Carbon Dioxide 34 H D (22-30) mmol/L BUN 7 (7-17) mg/dL Creatinine 0.6 L (0.7-1.2) mg/dL Glucose 122 H (65-100) mg/dL Calcium 8.4 (8.4-10.2) mg/dL
[2016-05-14] MEDS: DILAUDID PCA 6MG/30ML IV SCH (21:15)
[2016-05-15] MEDS: POLYCILLIN/NS 2 GM/100 ML 100 ML IV SCH ×4 (00:39→18:25)
[2016-05-15 05:37] LABS: Basophils % (Auto) 0.5 % (0.0-1.8); Eosinophils % (Auto) 3.1 % (0.0-4.3); Hematocrit 25.2 % (30.3-42.9); Hemoglobin 7.9 gm/dl (10.1-14.3); Mean Corpuscular HGB Conc 31 % (30-34); Mean Corpuscular Volume 79 fl (79-97); Platelet Count 343 K/mm3 (140-440); Red Blood Count 3.21 M/mm3 (3.65-5.03); Red Cell Distribution Width 18.6 % (13.2-15.2); White Blood Count 9.6 K/mm3 (4.5-11.0)
[2016-05-15 05:40] LABS: BUN/Creatinine Ratio 8.33; Blood Urea Nitrogen 5 mg/dL (7-17); Calcium 8.5 mg/dL (8.4-10.2); Carbon Dioxide 32 mmol/L (22-30); Chloride 101.1 mmol/L (98-107); Glucose 114 mg/dL (65-100); Magnesium 1.5 mg/dL (1.7-2.3); Phosphorous 2.9 mg/dL (2.5-4.5); Potassium 3.8 mmol/L (3.6-5.0); Sodium 143 mmol/L (137-145)
[2016-05-15 05:44] LABS: Anion Gap 14 mmol/L
[2016-05-15 05:47] LABS: Mean Corpuscular Hemoglobin 25 pg (28-32)
[2016-05-15] MEDS ORDERED: MAGNESIUM SULFATE 2GM/50ML 50 ML IV ONE (06:18)
[2016-05-15] MEDS: D5W/0.45% NACL/KCL 20 MEQ 1,000 ML IV SCH ×2 (06:40→23:30)
[2016-05-15] MEDS: CLEOCIN 900 MG/50 mL 50 ML IV SCH ×3 (06:41→22:35)
[2016-05-15] MEDS: LOVENOX SUB-Q SCH ×2 (09:15→22:35)
--- NOTE | 2016-05-15 10:09 | Progress Note ---
Assessment and Plan - Patient Problems (1) Iatrogenic enterotomy Current Visit: Yes Status: Acute Plan to address problem: Followed by Dr. Franz. He's also monitoring the advancement of her diet (2) S/P unilateral salpingo-oophorectomy Current Visit: Yes Status: Acute Plan to address problem: We will increase patient's ambulation and diet per Dr. Franz. Patient is afebrile. (3) Anemia due to blood loss, acute Current Visit: Yes Status: Acute Plan to address problem: Patient with increase in her hematocrit to 25% status post blood transfusion. Subjective Patient Reports: Positive: feels better, still having pain, pain is less, tolerating liquids well, voiding w/o difficulty, no flatus, afebrile Objective Vital Signs - 12hr 05/15/16 05/15/16 05/15/16 00:00 07:07 07:51 Temperature 98.2 F 98.4 F Pulse Rate [ 80 76 Right Radial] Respiratory 18 16 Rate Blood Pressure 175/88 171/91 [Right Arm] O2 Sat by Pulse 99 98 96 Oximetry - General physical appearance obese - Respiratory normal expansion - Abdomen soft, tender, other (bandages clean and dry) - Psychiatric oriented to time, oriented to person, oriented to place, speech is normal, memory intact - Labs 05/15/16 05:07 05/15/16 05:07 Diabetes panel 05/15/16 Range/Units 05:07 Sodium 143 (137-145) mmol/L Potassium 3.8 (3.6-5.0) mmol/L Chloride 101.1 (98-107) mmol/L Carbon Dioxide 32 H (22-30) mmol/L BUN 5 L (7-17) mg/dL Creatinine 0.6 L (0.7-1.2) mg/dL Glucose 114 H (65-100) mg/dL Calcium 8.5 (8.4-10.2) mg/dL Calcium panel 05/15/16 Range/Units 05:07 Calcium 8.5 (8.4-10.2) mg/dL Phosphorus 2.9 (2.5-4.5) mg/dL Pituitary panel 05/15/16 Range/Units 05:07 Sodium 143 (137-145) mmol/L Potassium 3.8 (3.6-5.0) mmol/L Chloride 101.1 (98-107) mmol/L Carbon Dioxide 32 H (22-30) mmol/L BUN 5 L (7-17) mg/dL Creatinine 0.6 L (0.7-1.2) mg/dL Glucose 114 H (65-100) mg/dL Calcium 8.5 (8.4-10.2) mg/dL Adrenal panel 05/15/16 Range/Units 05:07 Sodium 143 (137-145) mmol/L Potassium 3.8 (3.6-5.0) mmol/L Chloride 101.1 (98-107) mmol/L Carbon Dioxide 32 H (22-30) mmol/L BUN 5 L (7-17) mg/dL Creatinine 0.6 L (0.7-1.2) mg/dL Glucose 114 H (65-100) mg/dL Calcium 8.5 (8.4-10.2) mg/dL
[2016-05-15] MEDS ORDERED: MILK OF MAGNESIA PO ONE ×2 (10:35→15:00)
[2016-05-15] MEDS ORDERED: APRESOLINE IV ONE (11:55)
--- NOTE | 2016-05-15 11:58 | Progress Note ---
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 --Status post cystoscopy, Continue supportive care --Hypertension; moderate control Recurrent antihypertensives and when necessary medications --Morbid obesity Nighty modification and exercise as tolerated and weight reduction when patient is medically stable Patient may benefit by outpatient bariatric surgical procedure once medically stable --DVT prophylaxis ,With Lovenox consults and and recommendations noted and appreciated Physical therapy occupational therapy Consults recommendations noted and appreciated Plan of care discussed with the patient and family members at the bedside History Interval history: Patient seen and evaluated medical records reviewed No new events reported by the nursing staff received 2 units of PRBC Patient has no new complaints Hospitalist Physical - Constitutional Vitals: Temp Pulse Resp BP Pulse Ox 98.4 F 76 16 171/91 96 05/15/16 07:51 05/15/16 07:51 05/15/16 07:51 05/15/16 07:51 05/15/16 07:51 General appearance: Present: no acute distress, well-nourished, obese (morbidly obese) - EENT Eyes: Present: PERRL, EOM intact - Neck Neck: Present: supple, normal ROM - Respiratory Respiratory effort: normal Respiratory: bilateral: diminished, negative: rales, rhonchi, wheezing - Extremities Extremities: no ischemia, pulses intact, pulses symmetrical - Abdominal General gastrointestinal: soft, non-tender, non-distended, normal bowel sounds, hypoactive bowel sounds, other (surgical dressing intact) - Integumentary Integumentary: Present: clear, warm - Psychiatric Psychiatric: appropriate mood/affect, cooperative - Neurologic Neurologic: CNII-XII intact, moves all extremities Results - Labs CBC & Chem 7: 05/15/16 05:07 05/15/16 05:07 Labs: Laboratory Last Values WBC 9.6 K/mm3 (4.5-11.0) 05/15/16 05:07 RBC 3.21 M/mm3 (3.65-5.03) L 05/15/16 05:07 Hgb 7.9 gm/dl (10.1-14.3) L 05/15/16 05:07 Hct 25.2 % (30.3-42.9) L 05/15/16 05:07 MCV 79 fl (79-97) 05/15/16 05:07 MCH 25 pg (28-32) L 05/15/16 05:07 MCHC 31 % (30-34) 05/15/16 05:07 RDW 18.6 % (13.2-15.2) H 05/15/16 05:07 Plt Count 343 K/mm3 (140-440) 05/15/16 05:07 Lymph % (Auto) 31.8 % (13.4-35.0) 05/15/16 05:07 [place] % (Auto) 8.0 % (0.0-7.3) H 05/15/16 05:07 Eos % (Auto) 3.1 % (0.0-4.3) 05/15/16 05:07 Baso % (Auto) 0.5 % (0.0-1.8) 05/15/16 05:07 Lymph # 3.1 K/mm3 (1.2-5.4) 05/15/16 05:07 [place] # 0.8 K/mm3 (0.0-0.8) 05/15/16 05:07 Eos # 0.3 K/mm3 (0.0-0.4) 05/15/16 05:07 Baso # 0.0 K/mm3 (0.0-0.1) 05/15/16 05:07 Seg Neutrophils % 56.6 % (40.0-70.0) 05/15/16 05:07 Seg Neutrophils # 5.4 K/mm3 (1.8-7.7) 05/15/16 05:07 PT 15.0 Sec. (12.2-14.9) H 05/13/16 05:22 INR 1.19 (0.87-1.13) H 05/13/16 05:22 APTT 33.2 Sec. (24.2-36.6) 05/09/16 18:36 POC ABG pH 7.414 (7.35-7.45) 05/11/16 07:47 POC ABG pCO2 44.8 (35-45) 05/11/16 07:47 POC ABG pO2 115 (80-105) H 05/11/16 07:47 POC ABG HCO3 28.7 05/11/16 07:47 POC ABG Total CO2 30 05/11/16 07:47 POC ABG O2 Sat 99 05/11/16 07:47 POC ABG Base Excess 4 05/11/16 07:47 FiO2 32 % 05/11/16 07:47 Sodium 143 mmol/L (137-145) 05/15/16 05:07 Potassium 3.8 mmol/L (3.6-5.0) 05/15/16 05:07 Chloride 101.1 mmol/L (98-107) 05/15/16 05:07 Carbon Dioxide 32 mmol/L (22-30) H 05/15/16 05:07 Anion Gap 14 mmol/L 05/15/16 05:07 BUN 5 mg/dL (7-17) L 05/15/16 05:07 Creatinine 0.6 mg/dL (0.7-1.2) L 05/15/16 05:07 Estimated GFR > 60 ml/min 05/15/16 05:07 BUN/Creatinine Ratio 8.33 % 05/15/16 05:07 Glucose 114 mg/dL (65-100) H 05/15/16 05:07 Lactic Acid 0.8 mmol/L (0.7-2.0) 05/10/16 10:40 Calcium 8.5 mg/dL (8.4-10.2) 05/15/16 05:07 Phosphorus 2.9 mg/dL (2.5-4.5) 05/15/16 05:07 Magnesium 1.5 mg/dL (1.7-2.3) L 05/15/16 05:07 Total Bilirubin 0.3 mg/dL (0.1-1.2) 05/09/16 18:36 AST 11 units/L (5-40) 05/09/16 18:36 ALT 8 units/L (7-56) 05/09/16 18:36 Alkaline Phosphatase 57 units/L (35-129) 05/09/16 18:36 Total Protein 8.6 g/dL (6.3-8.2) H 05/09/16 18:36 Albumin 3.6 g/dL (3.9-5) L 05/09/16 18:36 Albumin/Globulin Ratio 0.7 % 05/09/16 18:36 Lipase 19 units/L (13-60) 05/09/16 18:36 HCG, Quant < 2 mIU/mL (0-4) 05/09/16 18:36 Urine Color Yellow (Yellow) 05/10/16 07:18 Urine Turbidity Slightly-cloudy (Clear) 05/10/16 07:18 Urine pH 5.0 (5.0-7.0) 05/10/16 07:18 Urine Protein 100 mg/dl mg/dL (Negative) 05/10/16 07:18 Urine Glucose (UA) Neg mg/dL (Negative) 05/10/16 07:18 Urine Ketones Neg mg/dL (Negative) 05/10/16 07:18 Urine Blood Neg (Negative) 05/10/16 07:18 Urine Nitrite Neg (Negative) 05/10/16 07:18 Urine Bilirubin Neg (Negative) 05/10/16 07:18 Urine Urobilinogen < 2.0 mg/dL (<2.0) 05/10/16 07:18 Ur Leukocyte Esterase Lg (Negative) 05/10/16 07:18 Urine WBC (Auto) 56.0 /HPF (0.0-6.0) H 05/10/16 07:18 Urine RBC (Auto) 12.0 /HPF (0.0-6.0) 05/10/16 07:18 U Epithel Cells (Auto) 10.0 /HPF (0-13.0) 05/10/16 07:18 Urine Bacteria (Auto) 1+ /HPF (Negative) 05/10/16 07:18 Urine Mucus Few /HPF 05/10/16 07:18 Blood Type AB POSITIVE 05/11/16 07:50 Antibody Screen Negative 05/11/16 07:50 Crossmatch See Detail 05/11/16 07:50
[2016-05-15] MEDS: APRESOLINE PO SCH ×2 (14:16→23:50)
[2016-05-15] MEDS: BENADRYL IV PRN (15:30)
[2016-05-15] MEDS: PROCARDIA XL PO SCH (23:50)
[2016-05-16] MEDS: POLYCILLIN/NS 2 GM/100 ML 100 ML IV SCH ×4 (00:18→18:25)
[2016-05-16] MEDS: DILAUDID PCA 6MG/30ML IV SCH (05:00)
[2016-05-16 05:48] LABS: Basophils % (Auto) 0.4 % (0.0-1.8); Eosinophils % (Auto) 3.6 % (0.0-4.3); Hematocrit 24.3 % (30.3-42.9); Hemoglobin 7.8 gm/dl (10.1-14.3); Mean Corpuscular HGB Conc 32 % (30-34); Mean Corpuscular Volume 78 fl (79-97); Platelet Count 344 K/mm3 (140-440); Red Blood Count 3.11 M/mm3 (3.65-5.03); Red Cell Distribution Width 18.8 % (13.2-15.2); White Blood Count 9.5 K/mm3 (4.5-11.0)
[2016-05-16 05:54] LABS: Mean Corpuscular Hemoglobin 25 pg (28-32)
[2016-05-16] MEDS: CLEOCIN 900 MG/50 mL 50 ML IV SCH ×3 (06:00→23:24)
[2016-05-16 06:07] LABS: BUN/Creatinine Ratio 6.66; Blood Urea Nitrogen 4 mg/dL (7-17); Calcium 8.7 mg/dL (8.4-10.2); Carbon Dioxide 34 mmol/L (22-30); Chloride 97.2 mmol/L (98-107); Glucose 133 mg/dL (65-100); Magnesium 1.5 mg/dL (1.7-2.3); Potassium 3.9 mmol/L (3.6-5.0); Sodium 141 mmol/L (137-145)
[2016-05-16 06:08] LABS: Anion Gap 14 mmol/L
[2016-05-16] MEDS: APRESOLINE PO SCH ×3 (06:45→23:25)
--- NOTE | 2016-05-16 09:10 | Progress Note ---
Assessment and Plan - Patient Problems (1) PID (pelvic inflammatory disease) Current Visit: Yes Status: Acute (2) Anemia due to blood loss, acute Current Visit: Yes Status: Acute Plan to address problem: s/p transfusion pt h/h stable at this time (3) Iatrogenic enterotomy Current Visit: Yes Status: Acute Plan to address problem: -doing well on advanced diet -con't care as per Dr. Franz (4) S/P appendectomy Current Visit: Yes Status: Acute Plan to address problem: -pt doing well on advanced diet -routine post op f/u as per Dr. Franz (5) S/P unilateral salpingo-oophorectomy Current Visit: Yes Status: Acute Plan to address problem: -routine post op care -doing well from claim investigator standpoint Subjective - Subjective Date of service: 05/16/16 Principal diagnosis: POD #5 s/p RSO, Ex lap, dx laproscopy, laproscopic appendectomy,SB repair Interval history: Pt sitting up in the bed stating that she is having some pain this am but "I am making it." She states she did not have an n/v with that diet but that she does not like the food at the hospital so has just been eating the pudding and drinking the booste. She denies any headaches, dizziness, or chest pain this am. Patient reports: appetite normal, voiding normally, pain well controlled, flatus , ambulating normally, no dizzy ambulation, no bowel movement, no nauseated Objective - Vital Signs Latest vital signs: Vital Signs Temp Pulse Pulse Resp BP BP Pulse Ox 05/16/16 07:52 97 05/16/16 06:45 86 135/84 05/16/16 04:00 98.6 F 85 18 162/78 100 05/16/16 00:00 98.8 F 78 18 189/106 99 05/15/16 23:50 78 189/106 05/15/16 21:29 98.6 F 84 18 191/95 100 05/15/16 20:06 100 05/15/16 15:00 98.4 F 74 18 155/95 05/15/16 12:30 141/98 05/15/16 10:00 18 96 Intake and Output 05/15/16 05/16/16 05/16/16 22:59 06:59 14:59 Intake Total 220 2827 Balance 220 2827 Intake: IV 2106 CLEOCIN 900 MG/50 mL 50 100 ML @ 100 mls/hr IV Q8HR [facility] Rx#:[id number] Polycillin/Ns 2 gm/100 ml 200 100 ml @ 100 mls/hr IV Q6HR S[facility] Rx#:[id number] D5w/0.45% NaCl/KCl 20 Meq 1807 1,000 ml @ 75 mls/hr IV DIRECT S[facility] Rx#: [id number] Oral 220 720 Other: Total, Intake Amount 120 720 Voiding Method Toilet # Voids Void 1 4 # Bowel Movements 0 0 Weight 179 kg Patient Weight 05/17/16 06:59 Weight 179 kg - Exam Lungs: Present: Normal air movement Abdomen: Present: normal appearance, soft, other (dressing in place this am). Absent: distention, tenderness Extremities: Present: normal, other. Absent: tenderness, edema Incision: Present: normal, dry, intact, dressed - Labs Labs: Abnormal lab results 05/11/16 05/16/16 05/16/16 Range/Units 07:50 05:22 05:22 RBC 3.11 L (3.65-5.03) M/mm3 Hgb 7.8 L (10.1-14.3) gm/dl Hct 24.3 L (30.3-42.9) % MCV 78 L (79-97) fl MCH 25 L (28-32) pg RDW 18.8 H (13.2-15.2) % [place] % (Auto) 7.9 H (0.0-7.3) % Chloride 97.2 L (98-107) mmol/L Carbon Dioxide 34 H (22-30) mmol/L BUN 4 L (7-17) mg/dL Creatinine 0.6 L (0.7-1.2) mg/dL Glucose 133 H (65-100) mg/dL Magnesium 1.5 L (1.7-2.3) mg/dL Crossmatch See Detail
[2016-05-16] MEDS ORDERED: MAGNESIUM SULFATE 2GM/50ML 50 ML IV ONE (09:31)
[2016-05-16] MEDS: LOVENOX SUB-Q SCH ×2 (11:32→23:17)
[2016-05-16] MEDS: PROCARDIA XL PO SCH ×2 (11:33→23:24)
[2016-05-16 11:53] LABS: Hematocrit 26.1 % (30.3-42.9); Hemoglobin 8.4 gm/dl (10.1-14.3); Mean Corpuscular HGB Conc 32 % (30-34); Mean Corpuscular Volume 77 fl (79-97); Platelet Count 363 K/mm3 (140-440); Red Blood Count 3.39 M/mm3 (3.65-5.03); Red Cell Distribution Width 18.5 % (13.2-15.2); White Blood Count 8.9 K/mm3 (4.5-11.0)
[2016-05-16 11:54] LABS: Mean Corpuscular Hemoglobin 25 pg (28-32)
[2016-05-16] MEDS ORDERED: MILK OF MAGNESIA PO ONE (12:50)
--- NOTE | 2016-05-16 12:50 | Progress Note ---
Subjective Patient Reports: Positive: feels better, still having pain, pain is less, flatus , no bowel movement Narrative: doing fine abd soft passing flatus ,no BM will give one more dose of MOM Objective Vital Signs - 12hr 05/16/16 05/16/16 05/16/16 04:00 06:45 07:52 Temperature 98.6 F Pulse Rate 86 Pulse Rate [ Apical] Pulse Rate [ 85 Right Radial] Respiratory 18 Rate Blood Pressure 135/84 Blood Pressure 162/78 [Right Arm] O2 Sat by Pulse 100 97 Oximetry 05/16/16 09:12 Temperature 98.4 F Pulse Rate Pulse Rate [ 82 Apical] Pulse Rate [ Right Radial] Respiratory 20 Rate Blood Pressure Blood Pressure 149/83 [Right Arm] O2 Sat by Pulse Oximetry - Labs 05/16/16 11:33 05/16/16 05:22 Diabetes panel 05/16/16 Range/Units 05:22 Sodium 141 (137-145) mmol/L Potassium 3.9 (3.6-5.0) mmol/L Chloride 97.2 L (98-107) mmol/L Carbon Dioxide 34 H (22-30) mmol/L BUN 4 L (7-17) mg/dL Creatinine 0.6 L (0.7-1.2) mg/dL Glucose 133 H (65-100) mg/dL Calcium 8.7 (8.4-10.2) mg/dL Calcium panel 05/16/16 Range/Units 05:22 Calcium 8.7 (8.4-10.2) mg/dL Pituitary panel 05/16/16 Range/Units 05:22 Sodium 141 (137-145) mmol/L Potassium 3.9 (3.6-5.0) mmol/L Chloride 97.2 L (98-107) mmol/L Carbon Dioxide 34 H (22-30) mmol/L BUN 4 L (7-17) mg/dL Creatinine 0.6 L (0.7-1.2) mg/dL Glucose 133 H (65-100) mg/dL Calcium 8.7 (8.4-10.2) mg/dL Adrenal panel 05/16/16 Range/Units 05:22 Sodium 141 (137-145) mmol/L Potassium 3.9 (3.6-5.0) mmol/L Chloride 97.2 L (98-107) mmol/L Carbon Dioxide 34 H (22-30) mmol/L BUN 4 L (7-17) mg/dL Creatinine 0.6 L (0.7-1.2) mg/dL Glucose 133 H (65-100) mg/dL Calcium 8.7 (8.4-10.2) mg/dL
[2016-05-16] MEDS: D5W/0.45% NACL/KCL 20 MEQ 1,000 ML IV SCH (14:26)
--- NOTE | 2016-05-16 17:35 | Progress Note ---
Assessment and Plan Assessment and plan: --Hypomagnesemia; replenish per protocol and monitor levels --Pelvic mass ; status post laparoscopic appendectomy/small bowel resection end-to-end anastomosis, omentectomy postoperative care surgery Early ambulation and physical therapy, incentive spirometry --Right ovarian thrombophlebitis Status post right salpingo-oophorectomy --Status post cystoscopy, bilateral stent placement per urology -- anemia/significant postoperative drop in hemoglobin s/p transfuse 2 units of PRBC, low stable H&H closely monitor transfuse additional PRBC as needed --Urinary tract infection, Continue IV antibiotics cultures negative to date --Hypertension; moderate control Continue current antihypertensives and when necessary medications --Morbid obesity Nighty modification and exercise as tolerated and weight reduction when patient is medically stable Patient may benefit by outpatient bariatric surgical procedure once medically stable --DVT prophylaxis ,With Lovenox consults and and recommendations noted and appreciated Physical therapy occupational therapy Plan of care discussed with the patient and family members at the bedside as well as the nurse and case management Disposition; [employer] cleared for discharge, possible discharge when surgery clears History Interval history: Patient seen and evaluated medical records reviewed Patient feels better no new complaints Tolerating full liquid diet sitting on the bed No new complaints Hospitalist Physical - Constitutional Vitals: Temp Pulse Resp BP Pulse Ox 98.5 F 82 20 138/72 97 05/16/16 15:54 05/16/16 15:54 05/16/16 15:54 05/16/16 15:54 05/16/16 07:52 General appearance: Present: no acute distress, well-nourished, obese (morbidly obese) - EENT Eyes: Present: PERRL, EOM intact - Neck Neck: Present: supple, normal ROM - Respiratory Respiratory effort: normal Respiratory: bilateral: diminished, negative: rales, rhonchi, wheezing - Cardiovascular Rhythm: regular Heart Sounds: Present: S1 & S2 - Extremities Extremities: no ischemia, pulses intact, pulses symmetrical Peripheral Pulses: within normal limits - Abdominal General gastrointestinal: soft, non-tender, non-distended, normal bowel sounds - Integumentary Integumentary: Present: clear, warm - Psychiatric Psychiatric: appropriate mood/affect, cooperative - Neurologic Neurologic: CNII-XII intact, moves all extremities Results - Labs CBC & Chem 7: 05/16/16 11:33 05/16/16 05:22 Labs: Laboratory Last Values WBC 8.9 K/mm3 (4.5-11.0) 05/16/16 11:33 RBC 3.39 M/mm3 (3.65-5.03) L 05/16/16 11:33 Hgb 8.4 gm/dl (10.1-14.3) L 05/16/16 11:33 Hct 26.1 % (30.3-42.9) L 05/16/16 11:33 MCV 77 fl (79-97) L 05/16/16 11:33 MCH 25 pg (28-32) L 05/16/16 11:33 MCHC 32 % (30-34) 05/16/16 11:33 RDW 18.5 % (13.2-15.2) H 05/16/16 11:33 Plt Count 363 K/mm3 (140-440) 05/16/16 11:33 Lymph % (Auto) 28.9 % (13.4-35.0) 05/16/16 05:22 [place] % (Auto) 7.9 % (0.0-7.3) H 05/16/16 05:22 Eos % (Auto) 3.6 % (0.0-4.3) 05/16/16 05:22 Baso % (Auto) 0.4 % (0.0-1.8) 05/16/16 05:22 Lymph # 2.7 K/mm3 (1.2-5.4) 05/16/16 05:22 [place] # 0.8 K/mm3 (0.0-0.8) 05/16/16 05:22 Eos # 0.3 K/mm3 (0.0-0.4) 05/16/16 05:22 Baso # 0.0 K/mm3 (0.0-0.1) 05/16/16 05:22 Seg Neutrophils % 59.2 % (40.0-70.0) 05/16/16 05:22 Seg Neutrophils # 5.6 K/mm3 (1.8-7.7) 05/16/16 05:22 PT 15.0 Sec. (12.2-14.9) H 05/13/16 05:22 INR 1.19 (0.87-1.13) H 05/13/16 05:22 APTT 33.2 Sec. (24.2-36.6) 05/09/16 18:36 POC ABG pH 7.414 (7.35-7.45) 05/11/16 07:47 POC ABG pCO2 44.8 (35-45) 05/11/16 07:47 POC ABG pO2 115 (80-105) H 05/11/16 07:47 POC ABG HCO3 28.7 05/11/16 07:47 POC ABG Total CO2 30 05/11/16 07:47 POC ABG O2 Sat 99 05/11/16 07:47 POC ABG Base Excess 4 05/11/16 07:47 FiO2 32 % 05/11/16 07:47 Sodium 141 mmol/L (137-145) 05/16/16 05:22 Potassium 3.9 mmol/L (3.6-5.0) 05/16/16 05:22 Chloride 97.2 mmol/L (98-107) L 05/16/16 05:22 Carbon Dioxide 34 mmol/L (22-30) H 05/16/16 05:22 Anion Gap 14 mmol/L 05/16/16 05:22 BUN 4 mg/dL (7-17) L 05/16/16 05:22 Creatinine 0.6 mg/dL (0.7-1.2) L 05/16/16 05:22 Estimated GFR > 60 ml/min 05/16/16 05:22 BUN/Creatinine Ratio 6.66 % 05/16/16 05:22 Glucose 133 mg/dL (65-100) H 05/16/16 05:22 Lactic Acid 0.8 mmol/L (0.7-2.0) 05/10/16 10:40 Calcium 8.7 mg/dL (8.4-10.2) 05/16/16 05:22 Phosphorus 2.9 mg/dL (2.5-4.5) 05/15/16 05:07 Magnesium 1.5 mg/dL (1.7-2.3) L 05/16/16 05:22 Total Bilirubin 0.3 mg/dL (0.1-1.2) 05/09/16 18:36 AST 11 units/L (5-40) 05/09/16 18:36 ALT 8 units/L (7-56) 05/09/16 18:36 Alkaline Phosphatase 57 units/L (35-129) 05/09/16 18:36 Total Protein 8.6 g/dL (6.3-8.2) H 05/09/16 18:36 Albumin 3.6 g/dL (3.9-5) L 05/09/16 18:36 Albumin/Globulin Ratio 0.7 % 05/09/16 18:36 Lipase 19 units/L (13-60) 05/09/16 18:36 HCG, Quant < 2 mIU/mL (0-4) 05/09/16 18:36 Urine Color Yellow (Yellow) 05/10/16 07:18 Urine Turbidity Slightly-cloudy (Clear) 05/10/16 07:18 Urine pH 5.0 (5.0-7.0) 05/10/16 07:18 Urine Protein 100 mg/dl mg/dL (Negative) 05/10/16 07:18 Urine Glucose (UA) Neg mg/dL (Negative) 05/10/16 07:18 Urine Ketones Neg mg/dL (Negative) 05/10/16 07:18 Urine Blood Neg (Negative) 05/10/16 07:18 Urine Nitrite Neg (Negative) 05/10/16 07:18 Urine Bilirubin Neg (Negative) 05/10/16 07:18 Urine Urobilinogen < 2.0 mg/dL (<2.0) 05/10/16 07:18 Ur Leukocyte Esterase Lg (Negative) 05/10/16 07:18 Urine WBC (Auto) 56.0 /HPF (0.0-6.0) H 05/10/16 07:18 Urine RBC (Auto) 12.0 /HPF (0.0-6.0) 05/10/16 07:18 U Epithel Cells (Auto) 10.0 /HPF (0-13.0) 05/10/16 07:18 Urine Bacteria (Auto) 1+ /HPF (Negative) 05/10/16 07:18 Urine Mucus Few /HPF 05/10/16 07:18 Blood Type AB POSITIVE 05/11/16 07:50 Antibody Screen Negative 05/11/16 07:50 Crossmatch See Detail 05/11/16 07:50
[2016-05-17] MEDS: APRESOLINE PO SCH ×2 (06:17→14:30)
[2016-05-17] MEDS: POLYCILLIN/NS 2 GM/100 ML 100 ML IV SCH ×4 (06:17→17:30)
[2016-05-17] MEDS: CLEOCIN 900 MG/50 mL 50 ML IV SCH ×2 (06:21→14:28)
[2016-05-17] MEDS ORDERED: MILK OF MAGNESIA PO ONE (10:00)
--- NOTE | 2016-05-17 10:30 | Progress Note ---
Assessment and Plan Assessment and plan: Pelvic mass: s/p laparoscopic appendectomy/small bowel resection end-to-end anastomosis, omentectomy postoperative care surgery Early ambulation and physical therapy, incentive spirometry --Right ovarian thrombophlebitis Status post right salpingo-oophorectomy --Status post cystoscopy, bilateral stent placement per urology Liquid diet Anemia s/p transfused 2 units of PRBC, hemoglobin 8.4 yesterday, stable --Urinary tract infection, Continue IV Ampicillin. cultures negative to date --Hypertension; moderate control Continue current antihypertensives --Morbid obesity Patient may benefit by outpatient bariatric surgical procedure once medically stable --DVT prophylaxis ,With Lovenox patient still needs inpatient care Full CODE STATUS History Interval history: Less abdominal pain, nausea, Mild tremors Hospitalist Physical - Physical exam Narrative exam: Gen appearance: morbidly obese, not in acute distress HEENT: Normocephalic, atraumatic Neck: supple, no JVD Lungs:clear to auscultation bilaterally, no crackles no wheezes, Heart :S1 and S2 regular, no murmurs rubs or gallops Abdomen soft, mild tender ,dressing of the abdomen bowel sounds present Extremities no edema no clubbing or cyanosis Neuro awake alert oriented 3, no focal neurologic signs - Constitutional Vitals: Temp Pulse Resp BP Pulse Ox 98.1 F 94 H 20 136/71 98 05/17/16 08:09 05/17/16 08:09 05/17/16 08:09 05/17/16 08:09 05/17/16 08:29 General appearance: Present: no acute distress, well-nourished, obese (morbidly obese) Results - Labs CBC & Chem 7: 05/16/16 11:33 05/16/16 05:22 Labs: Laboratory Last Values WBC 8.9 K/mm3 (4.5-11.0) 05/16/16 11:33 RBC 3.39 M/mm3 (3.65-5.03) L 05/16/16 11:33 Hgb 8.4 gm/dl (10.1-14.3) L 05/16/16 11:33 Hct 26.1 % (30.3-42.9) L 05/16/16 11:33 MCV 77 fl (79-97) L 05/16/16 11:33 MCH 25 pg (28-32) L 05/16/16 11:33 MCHC 32 % (30-34) 05/16/16 11:33 RDW 18.5 % (13.2-15.2) H 05/16/16 11:33 Plt Count 363 K/mm3 (140-440) 05/16/16 11:33 Lymph % (Auto) 28.9 % (13.4-35.0) 05/16/16 05:22 [place] % (Auto) 7.9 % (0.0-7.3) H 05/16/16 05:22 Eos % (Auto) 3.6 % (0.0-4.3) 05/16/16 05:22 Baso % (Auto) 0.4 % (0.0-1.8) 05/16/16 05:22 Lymph # 2.7 K/mm3 (1.2-5.4) 05/16/16 05:22 [place] # 0.8 K/mm3 (0.0-0.8) 05/16/16 05:22 Eos # 0.3 K/mm3 (0.0-0.4) 05/16/16 05:22 Baso # 0.0 K/mm3 (0.0-0.1) 05/16/16 05:22 Seg Neutrophils % 59.2 % (40.0-70.0) 05/16/16 05:22 Seg Neutrophils # 5.6 K/mm3 (1.8-7.7) 05/16/16 05:22 PT 15.0 Sec. (12.2-14.9) H 05/13/16 05:22 INR 1.19 (0.87-1.13) H 05/13/16 05:22 APTT 33.2 Sec. (24.2-36.6) 05/09/16 18:36 POC ABG pH 7.414 (7.35-7.45) 05/11/16 07:47 POC ABG pCO2 44.8 (35-45) 05/11/16 07:47 POC ABG pO2 115 (80-105) H 05/11/16 07:47 POC ABG HCO3 28.7 05/11/16 07:47 POC ABG Total CO2 30 05/11/16 07:47 POC ABG O2 Sat 99 05/11/16 07:47 POC ABG Base Excess 4 05/11/16 07:47 FiO2 32 % 05/11/16 07:47 Sodium 141 mmol/L (137-145) 05/16/16 05:22 Potassium 3.9 mmol/L (3.6-5.0) 05/16/16 05:22 Chloride 97.2 mmol/L (98-107) L 05/16/16 05:22 Carbon Dioxide 34 mmol/L (22-30) H 05/16/16 05:22 Anion Gap 14 mmol/L 05/16/16 05:22 BUN 4 mg/dL (7-17) L 05/16/16 05:22 Creatinine 0.6 mg/dL (0.7-1.2) L 05/16/16 05:22 Estimated GFR > 60 ml/min 05/16/16 05:22 BUN/Creatinine Ratio 6.66 % 05/16/16 05:22 Glucose 133 mg/dL (65-100) H 05/16/16 05:22 POC Glucose 152 (70-105) H 05/17/16 10:04 Lactic Acid 0.8 mmol/L (0.7-2.0) 05/10/16 10:40 Calcium 8.7 mg/dL (8.4-10.2) 05/16/16 05:22 Phosphorus 2.9 mg/dL (2.5-4.5) 05/15/16 05:07 Magnesium 1.5 mg/dL (1.7-2.3) L 05/16/16 05:22 Total Bilirubin 0.3 mg/dL (0.1-1.2) 05/09/16 18:36 AST 11 units/L (5-40) 05/09/16 18:36 ALT 8 units/L (7-56) 05/09/16 18:36 Alkaline Phosphatase 57 units/L (35-129) 05/09/16 18:36 Total Protein 8.6 g/dL (6.3-8.2) H 05/09/16 18:36 Albumin 3.6 g/dL (3.9-5) L 05/09/16 18:36 Albumin/Globulin Ratio 0.7 % 05/09/16 18:36 Lipase 19 units/L (13-60) 05/09/16 18:36 HCG, Quant < 2 mIU/mL (0-4) 05/09/16 18:36 Urine Color Yellow (Yellow) 05/10/16 07:18 Urine Turbidity Slightly-cloudy (Clear) 05/10/16 07:18 Urine pH 5.0 (5.0-7.0) 05/10/16 07:18 Urine Protein 100 mg/dl mg/dL (Negative) 05/10/16 07:18 Urine Glucose (UA) Neg mg/dL (Negative) 05/10/16 07:18 Urine Ketones Neg mg/dL (Negative) 05/10/16 07:18 Urine Blood Neg (Negative) 05/10/16 07:18 Urine Nitrite Neg (Negative) 05/10/16 07:18 Urine Bilirubin Neg (Negative) 05/10/16 07:18 Urine Urobilinogen < 2.0 mg/dL (<2.0) 05/10/16 07:18 Ur Leukocyte Esterase Lg (Negative) 05/10/16 07:18 Urine WBC (Auto) 56.0 /HPF (0.0-6.0) H 05/10/16 07:18 Urine RBC (Auto) 12.0 /HPF (0.0-6.0) 05/10/16 07:18 U Epithel Cells (Auto) 10.0 /HPF (0-13.0) 05/10/16 07:18 Urine Bacteria (Auto) 1+ /HPF (Negative) 05/10/16 07:18 Urine Mucus Few /HPF 05/10/16 07:18 Blood Type AB POSITIVE 05/11/16 07:50 Antibody Screen Negative 05/11/16 07:50 Crossmatch See Detail 05/11/16 07:50
[2016-05-17] MEDS: PROCARDIA XL PO SCH (10:33)
[2016-05-17] MEDS: LOVENOX SUB-Q SCH (10:33)
[2016-05-17] MEDS: D5W/0.45% NACL/KCL 20 MEQ 1,000 ML IV SCH (14:00)
[2016-05-17] MEDS ORDERED: AMBIEN PO PRN (23:55)
[2016-05-18] MEDS: APRESOLINE PO SCH
[2016-05-18] MEDS: BENADRYL IV PRN (00:15)
[2016-05-18] MEDS: DILAUDID PCA 6MG/30ML IV SCH (00:50)
--- NOTE | 2016-05-18 03:57 | Progress Note ---
Subjective Patient Reports: Positive: feels better, flatus, bowel movement Narrative: 2 huge Bms wound OK , arrrange for D/C late today , Objective Vital Signs - 12hr 05/17/16 05/17/16 16:40 21:55 Temperature 98.8 F Pulse Rate [ 102 H Right Radial] Respiratory 20 Rate Blood Pressure 132/69 [Right Arm] O2 Sat by Pulse 86 Oximetry - Labs 05/16/16 11:33 05/16/16 05:22
[2016-05-18] MEDS: CLEOCIN 900 MG/50 mL 50 ML IV SCH ×2 (07:00)
--- NOTE | 2016-05-18 10:33 | Discharge Summary ---
Providers - Providers Date of Admission: 05/10/16 08:45 Date of discharge: 05/18/16 Attending physician: TAI ROLAND 05/10/16 08:52 Consult to Physician [CONS] Routine Consulting Provider: NASRIN MAHONEY Reason For Exam: ovarian vein thrombphlebitis Place consult to:: ALCOHOLIC COUNSELOR Notified:: y Was contact made?: Yes If yes, spoke with:: Dr Mahoney Time called:: 09:30 05/10/16 13:15 Consult to Physician [CONS] Routine Consulting Provider: MARY SALES Reason For Exam: evaluate for appendectomy Place consult to:: dr sales Notified:: y Phone number called:: [phone] Was contact made?: Yes If yes, spoke with:: Dr. Sales Time called:: 11:45 05/11/16 Consult to Case Management [CONS] Routine Services Needed at Discharge: Diagnostic Radiologic Technologist Notified:: cw 05/14/16 10:09 Physical Therapy Evaluation and Treat [CONS] Routine Comment: Reason For Exam: Post op evaluation 05/15/16 12:28 Consult to PICC Line RN [CONS] Routine Reason For Exam: Picc line insertion Type Line:: PICC Primary care physician: LUMBER TRIPPER Hospitalization Reason for admission: persistent right lower quadrant pain Condition: Good Pertinent studies: CT scan, Gen. surgery consult, TELESALES REPRESENTATIVE consult and blood transfusion Procedures: CT scan, Gen. surgery consult, TELESALES REPRESENTATIVE consult and blood transfusion. Diagnostic laparoscopy converted to exploratory laparotomy with right salpingo- oophorectomy lysis of adhesions and appendectomy and repair of enterotomy Hospital course: Please see H&P in chart for detailed. Patient's clearance for surgery she underwent a diagnostic laparotomy which had to convert to a laparotomy due to patient's of pelvic adhesions in the process of the surgery patient did have enterotomy during the performance of appendectomy that was repaired along with removal of her right index. Patient's postoperative course was complicated by anemia requiring blood transfusion of 2 units of packed red blood cells. Patient did have increase in her bowel functions where by postop day 3 patient removal or NG tube patient ambulation increased on hospitalization and at time of discharge patient was tolerating regular diet and had normal orthostatic symptoms.. Disposition: DISCHARGED TO HOME OR SELFCARE - Discharge Diagnoses (1) Iatrogenic enterotomy Status: Acute (2) S/P unilateral salpingo-oophorectomy Status: Acute (3) Anemia due to blood loss, acute Status: Acute (4) S/P appendectomy Status: Acute (5) Right lower quadrant abdominal pain Status: Resolved (6) Right ovarian enlargement Status: Resolved (7) Pelvic pain in female Status: Acute Core Measure Documentation - Palliative Care Palliative Care/ Comfort Measures: Not Applicable - Core Measures Any of the following diagnoses?: none - VTE Discharge Requirements Deep Vein Thrombosis/Pulmonary Embolism Present on Admission: No Has pt received <5 days of overlap therapy or INR<2.0: No Anticoagulant overlap therapy prescribed at discharge: Yes Contraindication No Overlap Therapy order at DC: Not Indicated Exam - Constitutional Vitals: Temp Pulse Resp BP Pulse Ox 98.8 F 96 H 18 134/68 100 05/18/16 08:00 05/18/16 08:00 05/18/16 08:00 05/18/16 08:00 05/18/16 09:18 General appearance: Present: no acute distress - Respiratory Respiratory effort: normal - Cardiovascular Rhythm: regular - Extremities Extremities: Full ROM Extremity abnormal: edema - Abdominal General gastrointestinal: Present: soft, tender (appropriately), other ( vertical incision khalif are intact with no evidence of infection) Female genitourinary: Present: deferred - Musculoskeletal Musculoskeletal: strength equal bilaterally - Psychiatric Psychiatric: appropriate mood/affect, intact judgment & insight Plan Activity: advance as tolerated Diet: low fat Wound: open to air, keep clean and dry Additional Instructions: Patient office for fever chills nausea vomiting or pain uncontrolled by pain relief. Patient instructed no heavy lifting 6 weeks. No sex for 6 weeks. Follow up with: PRIMARY CARE, [Primary Care Provider] - 3-5 Days Forms: Warfarin Discharge Instruction Prescriptions: Cephalexin [Keflex] 500 mg PO Q12HR #14 cap Ibuprofen [Motrin 800 MG tab] 800 mg PO Q6H PRN #30 tablet PRN Reason: Pain oxyCODONE /ACETAMINOPHEN [Percocet 5/325 mg] 1 - 2 tab PO Q4H PRN #30 tablet PRN Reason: Pain, Moderate
[2016-05-18] MEDS: POLYCILLIN/NS 2 GM/100 ML 100 ML IV SCH ×2 (11:21)
[2016-05-18] MEDS: LOVENOX SUB-Q SCH ×2 (11:22)
[2016-05-18] MEDS: PROCARDIA XL PO SCH ×2 (11:22)
[2016-05-18 12:14] VITALS: BP 153/76
--- NOTE | 2016-05-18 13:18 | Discharge Summary ---
Providers - Providers Date of Admission: 05/10/16 08:45 Date of discharge: 05/18/16 Attending physician: TAI ROLAND 05/10/16 08:52 Consult to Physician [CONS] Routine Consulting Provider: NASRIN MAHONEY Reason For Exam: ovarian vein thrombphlebitis Place consult to:: PRIVACY DIRECTOR Notified:: y Was contact made?: Yes If yes, spoke with:: Dr Mahoney Time called:: 09:30 05/10/16 13:15 Consult to Physician [CONS] Routine Consulting Provider: MARY SALES Reason For Exam: evaluate for appendectomy Place consult to:: dr sales Notified:: y Phone number called:: [phone] Was contact made?: Yes If yes, spoke with:: Dr. Sales Time called:: 11:45 05/11/16 Consult to Case Management [CONS] Routine Services Needed at Discharge: Cloth Inspector Notified:: cw 05/14/16 10:09 Physical Therapy Evaluation and Treat [CONS] Routine Comment: Reason For Exam: Post op evaluation 05/15/16 12:28 Consult to PICC Line RN [CONS] Routine Reason For Exam: Picc line insertion Type Line:: PICC Primary care physician: OPERATIONS TRAINER Hospitalization Condition: Good Disposition: DISCHARGED TO HOME OR SELFCARE - Discharge Diagnoses (1) Right tubo-ovarian abscess Status: Acute (2) PID (pelvic inflammatory disease) Status: Acute (3) S/P unilateral salpingo-oophorectomy Status: Acute Core Measure Documentation - Palliative Care Palliative Care/ Comfort Measures: Not Applicable - Core Measures Any of the following diagnoses?: none Exam - Constitutional Vitals: Temp Pulse Resp BP Pulse Ox 98.8 F 94 H 30 H 153/76 100 05/18/16 12:00 05/18/16 12:00 05/18/16 12:00 05/18/16 12:00 05/18/16 12:00 Plan Diet: low fat, low cholesterol, low salt Additional Instructions: 1.Follow up with Kimberlyn Kumar in 1 week. 2.No sex for 6 weeks. 3.No strenous exercise or heavy lifting for 6 weeks. 4.Follow up with PCP in 3-5 days.1 week. 5.Follow up with Dr. Sales in 1 week Follow up with: PRIMARY CAREMD [Primary Care Provider] - 3-5 Days Forms: Warfarin Discharge Instruction Prescriptions: Cephalexin [Keflex] 500 mg PO Q12HR #14 cap Ibuprofen [Motrin 800 MG tab] 800 mg PO Q6H PRN #30 tablet PRN Reason: Pain NIFEdipine XL [Procardia Xl] 60 mg PO Q12HR #60 tablet hydrALAZINE [Apresoline TAB] 25 mg PO Q8HR #90 tablet oxyCODONE /ACETAMINOPHEN [Percocet 5/325 mg] 1 - 2 tab PO Q4H PRN #30 tablet PRN Reason: Pain, Moderate
== END 2016-05-18 15:23 | disposition home or self-care (01) | DRG 854 ==
LOC: ED 16:41 → 3A 05-10 08:45 → 2B-SURG 05-11 14:05
PROVIDERS: ADMIT Internal Medicine; ATTEND Internal Medicine
PROC: 0DTJ4ZZ Resection of Appendix, Percutaneous Endoscopic Approach (ICD-10-PCS; principal; 2016-05-11)
PROC: 0DNT4ZZ (ICD-10-PCS; 2016-05-11)
PROC: 0DNS4ZZ (ICD-10-PCS; 2016-05-11)
PROC: 0DBS4ZZ (ICD-10-PCS; 2016-05-11)
PROC: 0DBT4ZZ (ICD-10-PCS; 2016-05-11)
PROC: 0DB80ZZ Excision of Small Intestine, Open Approach (ICD-10-PCS; 2016-05-11)
PROC: 0DN80ZZ Release Small Intestine, Open Approach (ICD-10-PCS; 2016-05-11)
PROC: 0UT50ZZ Resection of Right Fallopian Tube, Open Approach (ICD-10-PCS; 2016-05-11)
PROC: 0UT00ZZ Resection of Right Ovary, Open Approach (ICD-10-PCS; 2016-05-11)
PROC: 0DQ80ZZ Repair Small Intestine, Open Approach (ICD-10-PCS; 2016-05-11)
PROC: 0T788DZ Dilation of Bilateral Ureters with Intraluminal Device, Via Natural or Artificial Opening Endoscopic (ICD-10-PCS; 2016-05-11)
PROC: 4A033R1 Measurement of Arterial Saturation, Peripheral, Percutaneous Approach (ICD-10-PCS; 2016-05-11)
PROC: 30233N1 Transfusion of Nonautologous Red Blood Cells into Peripheral Vein, Percutaneous Approach (ICD-10-PCS; 2016-05-14)
PROC: 02HV33Z Insertion of Infusion Device into Superior Vena Cava, Percutaneous Approach (ICD-10-PCS; 2016-05-15)
DX: A41.9 Sepsis, unspecified organism (principal); Z68.45 Body mass index [BMI] 70 or greater, adult; E66.2 Morbid (severe) obesity with alveolar hypoventilation; N39.0 Urinary tract infection, site not specified; I82.890 Acute embolism and thrombosis of other specified veins; D62 Acute posthemorrhagic anemia; I10 Essential (primary) hypertension; J45.909 Unspecified asthma, uncomplicated; I80.8 Phlebitis and thrombophlebitis of other sites; K21.9 Gastro-esophageal reflux disease without esophagitis; N73.9 Female pelvic inflammatory disease, unspecified; N73.6 Female pelvic peritoneal adhesions (postinfective); N83.9 Noninflammatory disorder of ovary, fallopian tube and broad ligament, unspecified; N70.92 Oophoritis, unspecified; D25.9 Leiomyoma of uterus, unspecified; E83.42 Hypomagnesemia; R25.1 Tremor, unspecified; Z86.73 Personal history of transient ischemic attack (TIA), and cerebral infarction without residual deficits; Z79.899 Other long term (current) drug therapy; Z98.890 Other specified postprocedural states; Z88.5 Allergy status to narcotic agent; Z86.711 Personal history of pulmonary embolism; Z83.3 Family history of diabetes mellitus; Z82.49 Family history of ischemic heart disease and other diseases of the circulatory system
CPT/HCPCS: 36415; 36600; 71010; 74177; 76830; 76856; 80048; 80053; 81001; 82140; 82803; 82962; 83690; 83735; 84100; 84702; 85025; 85027; 85610; 85730; 86850; 86900; 86901; 86920; 87040; 87086; 88304; 88305; 88307; 94760; 96365; 96366; 96372; 96375; A4217; C1758; C1769; J0290; J0330; J0360; J0690; J1100; J1170; J1200; J1450; J1580; J1650; J1956; J2250; J2270; J2370; J2405; J2704; J2710; J2765; J3010; J3475; J7030; J7040; J7120; P9016; Q0162; Q9967; Q9968

== ENCOUNTER 2016-10-24 02:56 | Emergency (ER) | payer SELFPAY ==
[2016-10-24 04:18] VITALS: BP 165/99
[2016-10-24 05:12] LABS: Bilirubin,Urine NEG (Negative)
[2016-10-24 05:13] LABS: Bacteria,Urine 1+ /HPF (Negative); Blood,Urine LG (Negative); Ketones,Urine NEG (Negative); Leukocyte Esterase,Urine MOD (Negative); Nitrite,Urine NEG (Negative); Urobilinogen,Urine < 2.0 mg/dL (<2.0)
--- NOTE | 2016-10-28 19:31 | ED Elopement Review ---
ED Pt Elopement review - Results review Lab results: Laboratory Tests 10/24/16 04:15 Urine Color Yellow Urine Turbidity Clear Urine pH 6.0 Ur Specific [place] 1.016 Urine Protein 100 mg/dl Urine Glucose (UA) Neg Urine Ketones Neg Urine Blood Lg Urine Nitrite Neg Urine Bilirubin Neg Urine Urobilinogen < 2.0 Ur Leukocyte Esterase Mod Urine WBC (Auto) 33.0 H Urine RBC (Auto) 43.0 U Epithel Cells (Auto) 4.0 Urine Bacteria (Auto) 1+ Urine HCG, Qual Negative - Call Back decision Pt Call Back Decision: Call pt to return to ED [facility] (pt had abnormal UA, if she has not already been seen at another facility, please reutrn to ED for evaluation)
== END 2016-10-24 04:20 | disposition left against medical advice (07) ==
LOC: ED 02:56
DX: R07.9 Chest pain, unspecified (principal); R10.9 Unspecified abdominal pain; Z53.21 Procedure and treatment not carried out due to patient leaving prior to being seen by health care provider
CPT/HCPCS: 81001; 81025; 93005; 93010

== ENCOUNTER 2016-11-17 12:17 | Emergency (ER) | payer SELFPAY ==
[2016-11-17 14:12] LABS: Basophils % (Auto) 0.5 % (0.0-1.8); Eosinophils % (Auto) 1.5 % (0.0-4.3); Hematocrit 32.9 % (30.3-42.9); Hemoglobin 10.2 gm/dl (10.1-14.3); Mean Corpuscular HGB Conc 31 % (30-34); Mean Corpuscular Volume 75 fl (79-97); Platelet Count 342 K/mm3 (140-440); Red Blood Count 4.39 M/mm3 (3.65-5.03); White Blood Count 8.1 K/mm3 (4.5-11.0)
[2016-11-17 14:15] LABS: Mean Corpuscular Hemoglobin 23 pg (28-32); Red Cell Distribution Width 21.9 % (13.2-15.2)
[2016-11-17 15:31] LABS: Anion Gap 17 mmol/L; BUN/Creatinine Ratio 14.28; Blood Urea Nitrogen 10 mg/dL (7-17); Calcium 9.1 mg/dL (8.4-10.2); Carbon Dioxide 32 mmol/L (22-30); Chloride 99.4 mmol/L (98-107); Glucose 121 mg/dL (65-100); Potassium 3.9 mmol/L (3.6-5.0); Sodium 144 mmol/L (137-145)
--- NOTE | 2016-11-17 17:06 | Emergency Department Report ---
HPI - General Chief Complaint: Recheck/Abnormal Lab/Rx Time Seen by Provider: 11/17/16 16:36 - HPI HPI: Alejo 26 The patient is a 46-year-old female presenting with chief complaint of chest pain. The patient was originally and ED called back secondary to an abnormal urinalysis. However upon arrival and admits to intermittent left chest pain for one week. Patient describes the pain as a pressure associated with shortness of breath, diaphoresis and nausea without vomiting. Patient also admits to having chronic headaches for years which never been evaluated with imaging. Patient currently gives her pain a score of 8/10. The patient states she had a normal stress test in June 2016 and is uncertain if she has had a cardiac catheterization Location: Left chest Duration: One week Quality: Pressure Severity: 8/10 Modifying factors: [see above] Context: [see above] Mode of transportation: [not driving] ED Past Medical Hx - Past Medical History Hx Hypertension: Yes Hx CVA: Yes Hx Arthritis: Yes Hx Asthma: Yes (inhaler PRN) Additional medical history: anemia. MORBID OBESITY. SLEEP APNEA - Surgical History Hx Appendectomy: Yes Additional Surgical History: X 3. R knee surgery, right wrist surgery. RIGHT OVARY REMOVED - Family History Family history: no significant - Social History Smoking Status: Never Smoker Substance Use Type: None (denies illicit drug use) - Medications Home Medications: Home Medications Medication Instructions Recorded Confirmed Last Taken Type Diazepam Tab [Valium] 5 mg PO TID PRN #15 tablet 02/17/15 04/22/16 04/22/16 Rx Famotidine [Pepcid] 20 mg PO BID #60 tablet 05/18/16 Unknown Rx NIFEdipine XL [Procardia Xl] 60 mg PO Q12HR #60 tablet 05/18/16 Unknown Rx hydrALAZINE [Apresoline TAB] 25 mg PO Q8HR #90 tablet 05/18/16 Unknown Rx Cyclobenzaprine [Flexeril 10 MG 10 mg PO Q8H PRN #10 tablet 09/08/16 Unknown Rx TAB] oxyCODONE /ACETAMINOPHEN [Percocet 1 tab PO Q12H PRN #10 tablet 09/08/16 Unknown Rx 5/325 mg] ED Review of Systems ROS: Stated complaint: PT CALLED BACK TO ER Other details as noted in HPI Comment: All other systems reviewed and negative Constitutional: diaphoresis Eyes: denies: eye pain, eye discharge, vision change ENT: denies: ear pain, throat pain Respiratory: shortness of breath Cardiovascular: chest pain Endocrine: no symptoms reported Gastrointestinal: nausea. denies: vomiting Genitourinary: denies: urgency, dysuria, discharge Musculoskeletal: denies: back pain, joint swelling, arthralgia Skin: denies: rash, lesions Neurological: denies: headache, weakness, paresthesias Psychiatric: denies: anxiety, depression Hematological/Lymphatic: denies: easy bleeding, easy bruising Physical Exam - Physical Exam Vital Signs: Vital Signs 11/17/16 11/17/16 12:43 16:40 Temperature 98.3 F Pulse Rate 90 86 Respiratory 19 16 Rate Blood Pressure 212/99 Blood Pressure 178/94 [Left] O2 Sat by Pulse 96 97 Oximetry Physical Exam: GENERAL: The patient is well-developed well-nourished female lying on stretcher not appear to be in acute distress. [] HEENT: Normocephalic. Atraumatic. Extraocular motions are intact. Patient has moist mucous membranes. NECK: Supple. Trachea midline CHEST/LUNGS: Clear to auscultation. There is no respiratory distress noted. HEART/CARDIOVASCULAR: Regular. There is no tachycardia. There is no gallop rub or murmur. ABDOMEN: Abdomen is soft, nontender. Patient has normal bowel sounds. There is no abdominal distention. SKIN: There is no rash. There is no edema. There is no diaphoresis. NEURO: The patient is awake, alert, and oriented. The patient is cooperative. The patient has normal speech MUSCULOSKELETAL: There is no evidence of acute injury. ED Course Vital Signs 11/17/16 11/17/16 12:43 16:40 Temperature 98.3 F Pulse Rate 90 86 Respiratory 19 16 Rate Blood Pressure 212/99 Blood Pressure 178/94 [Left] O2 Sat by Pulse 96 97 Oximetry ED Medical Decision Making - Lab Data Result diagrams: 11/17/16 13:01 11/17/16 13:01 Laboratory Tests 11/17/16 11/17/16 11/17/16 13:01 13:01 13:01 WBC 8.1 RBC 4.39 Hgb 10.2 Hct 32.9 MCV 75 L MCH 23 L MCHC 31 RDW 21.9 H Plt Count 342 Lymph % (Auto) 32.7 [place] % (Auto) 5.5 Eos % (Auto) 1.5 Baso % (Auto) 0.5 Lymph # 2.7 [place] # 0.5 Eos # 0.1 Baso # 0.0 Seg Neutrophils % 59.8 Seg Neutrophils # 4.9 Sodium 144 Potassium 3.9 Chloride 99.4 Carbon Dioxide 32 H Anion Gap 17 BUN 10 Creatinine 0.7 Estimated GFR > 60 BUN/Creatinine Ratio 14.28 Glucose 121 H Calcium 9.1 Troponin T < 0.010 HCG, Qual Negative Urine Color Urine Turbidity Urine pH Ur Specific [place] Urine Protein Urine Glucose (UA) Urine Ketones Urine Blood Urine Nitrite Urine Bilirubin Urine Urobilinogen Ur Leukocyte Esterase Urine WBC (Auto) Urine RBC (Auto) U Epithel Cells (Auto) 11/17/16 16:43 WBC RBC Hgb Hct MCV MCH MCHC RDW Plt Count Lymph % (Auto) [place] % (Auto) Eos % (Auto) Baso % (Auto) Lymph # [place] # Eos # Baso # Seg Neutrophils % Seg Neutrophils # Sodium Potassium Chloride Carbon Dioxide Anion Gap BUN Creatinine Estimated GFR BUN/Creatinine Ratio Glucose Calcium Troponin T HCG, Qual Urine Color Yellow Urine Turbidity Cloudy Urine pH 6.0 Ur Specific [place] 1.021 Urine Protein 100 mg/dl Urine Glucose (UA) Neg Urine Ketones Neg Urine Blood Neg Urine Nitrite Neg Urine Bilirubin Neg Urine Urobilinogen < 2.0 Ur Leukocyte Esterase Sm Urine WBC (Auto) 6.0 Urine RBC (Auto) 5.0 U Epithel Cells (Auto) 29.0 H - EKG Data -: EKG Interpreted by Me EKG shows normal: sinus rhythm Rate: normal - EKG Data When compared to previous EKG there are: no significant change Interpretation: unchanged when compared t (10/24/2016) - Radiology Data Radiology results: report reviewed (CT head), image reviewed (chest x-ray, CT head) interpreted by me: Chest x-ray-no focal infiltrates, no pneumothorax CT head (read by radiologist)-no acute abnormality - Differential Diagnosis ACS, pericarditis, GERD, ICH, intracranial mass Critical care attestation.: If time is entered above; I have spent that time in minutes in the direct care of this critically ill patient, excluding procedure time. ED Disposition Clinical Impression: Headache, Chest pain Disposition: DC-09 OP ADMIT IP TO THIS HOSP Is pt being admited?: Yes Does the pt Need Aspirin: Yes Condition: Fair Instructions: Chest Pain (ED) Referrals: PRIMARY CARE, [Primary Care Provider] - 3-5 Days Time of Disposition: 18:11 (hospitalist paged)
[2016-11-17 17:07] LABS: Bilirubin,Urine NEG (Negative); Blood,Urine NEG (Negative); Ketones,Urine NEG (Negative); Leukocyte Esterase,Urine SM (Negative); Nitrite,Urine NEG (Negative); Urobilinogen,Urine < 2.0 mg/dL (<2.0)
[2016-11-17] MEDS ORDERED: MORPHINE IV ONE (17:07)
[2016-11-17] MEDS ORDERED: NITRO-BID 2% TP ONE (17:07)
[2016-11-17] MEDS ORDERED: ZOFRAN IV ONE (17:07)
--- NOTE | 2016-11-17 17:47 | Cat Scan Report ---
FINAL REPORT PROCEDURE: CT HEAD/BRAIN WO CON TECHNIQUE: Computerized tomography of the head was performed without contrast material. HISTORY: headache COMPARISON: Head CT dated September 07, 2016 FINDINGS: Normal variant non fusion of the posterior ring of C1 is seen. Visualized portions of the paranasal sinuses and mastoid air cells are clear. Portions of the posterior aspect of the skull are excluded on this study. Cerebral ventricles are normal in size. No acute intracranial hemorrhage or mass effect is seen. Artifacts slightly limit evaluation for subtle white matter abnormalities. There may be mild hypodensities in the regions of the basal ganglia that are similar to prior study and could be small vessel ischemic changes but these could be artifacts. IMPRESSION: Possible mild small vessel ischemic changes are seen in the basal ganglia, similar to prior study. These may be artifactual, though. No acute abnormality is seen.
--- NOTE | 2016-11-17 17:48 | Admit Criteria Form ---
Admission Criteria Documentation: CARDIOLOGY GRG Clinical Indications for Admission to Inpatient Care ( Place 'X' for any and all applicable criteria): Hospital admission is needed for appropriate care of the patient because of ANY ONE of the following (1): [ ] I. Hemodynamic instability as indicated by ALL of the following (1)(2)(3) (4)(5) [ ]a) Vital signs or other findings not as expected for chronic patient condition or baseline [ ]b) Instability indicated by ANY ONE of the following: [ ]i) Hypotension [ ]ii) Symptomatic Tachycardia unresponsive to treatment ( e.g., analgesia, fluids, sedation as indicated) [ ]iii) Inadequate perfusion indicated by ANY ONE of the following: [ ] 1) Lactic acidosis (> 2 mmol/L) [ ] 2) New abnormal capillary refill (> 3 seconds) [ ] 3) Reduced urine output [ ] 4) New altered mental status [ ]iv) Orthostatic vital sign changes unresponsive to treatment (e.g., fluids) [ ]v) IV inotropic or vasopressor medication required to maintain adequate blood pressure or perfusion [ ] II. Severe heart failure as indicated by ANY ONE of the following(17)(18) [ ]a) Respiratory distress [ ]b) Hypotension [ ]c) Anasarca (refractory to outpatient therapy) [ ]d) Cardiac arrhythmias of immediate concern [ ]e) Myocardial ischemia [ ] III. Cardiac arrhythmias or findings of immediate concern indicated by ANY ONE of the following (19)(20): [ ] a) Heart rhythms that are inherently dangerous or unstable indicated by ANY ONE of the following (21)(22)(23): [ ] i) Resuscitated ventricular fibrillation or cardiac arrest [ ] ii) Ventricular escape rhythm [ ] iii) Sustained ventricular tachycardia (30 seconds or more of ventricular rhythm at greater than 100 beats per minute) [ ] iv) Nonsustained ventricular tachycardia and ANY ONE of the following: [ ] 1) Suspected cardiac ischemia as cause or consequence of ventricular tachycardia [ ] 2) In setting of acute myocarditis [ ] b) Unstable cardiac conduction defects indicated by ANY ONE of the following(23)(24)(25) [ ] i) Type II second-degree atrioventricular block [ ]ii) Third-degree atrioventricular block [ ]iii) New-onset left bundle branch block with suspected myocardial ischemia [ ]c) Any heart rhythm and ANY ONE of the following (21)(22)(26)(27) (28) [ ] i) Continuous long-term ECG monitoring needed (e.g., initiation of drug requiring monitoring for more than 24 hours) [ ] ii) Patient has automatic implanted cardioverter defibrillator that is repeatedly firing, malfunctioning, or in need of immediate adjustment of settings beyond the scope of ambulatory or observation care [ ]d) Heart rhythms of concern due to ANY ONE of the following: [ ] i) Hypotension [ ] ii) Respiratory distress [ ] iii) Association with other significant symptoms (e.g., bradycardia with syncope or ongoing dizziness, supraventricular tachycardia with chest pain (14)(15)(17) [ ] IV. Monitoring for cardiac contusion beyond the scope of observation care needed [A](30)(31)(32) [ ] V. Surgical or device complication (e.g., valve replacement complication , pacemaker dysfunction) (35)(41)(44)(45)(46) [ ] . Inpatient palliative care needed. [B](49) Also use Inpatient Palliative Care Criteria [ ] VII. Nonbacterial thrombotic (marantic) endocarditis (36)(43)(47)(48) [X] VIII. Cardiology condition, symptom, or finding for which emergency and observation care has failed or are not considered appropriate. [ ] IX. Acute valvular disease requiring inpatient as indicated by ANY ONE of the following (41) [ ]a) Acute valvular regurgitation (42) [ ]b) Noninfectious valvulitis (43) [ ]c) Obstructive valve thrombosis [ ]d) Paravalvular leak [ ]e) Other significant valvular disorder remaining after emergency or observation level of care (as appropriate) [ ]X. Pericardial disease requiring inpatient treatment as indicated by ANY ONE of the following (33)(34)(35)(36)(37) [ ]a) Suspected tamponade (38)(39)(40) [ ]b) Hemopericardium [ ]c) Other significant pericardial disorder remaining after emergency or observation level of care (as appropriate) [ ] XI. Cardiac ischemia beyond scope of emergency and observation care. [ ] XII. Hypertension requiring inpatient treatment as indicated by ANY ONE of the following (6)(7)(8) [ ]a) SBP greater than 220 mm Hg or DBP greater than 120 mmHg despite treatment [ ]b) SBP greater than 140 mm Hg or DBP greater than 100 mm Hg with evidence of acute end organ damage as indicated by ANY ONE of the following [ ] i) Altered mental status [ ] ii) Acute renal failure as indicated by new onset of ANY ONE of the following (9)(10)(11)(12)(13) [ ]1) 3-fold rise in serum creatinine from baseline [ ]2) Serum creatinine greater than 4 mg/dL ( 354 micromoles/L) with acute rise greater than 0.5 mg/dL (44.2 micromoles/L) [ ]3) Reduction of more than 75% in estimated glomerular filtration rate from baseline [ ]4) Estimated glomerular filtration rate less than 35 mL/min/1.73m2 (0.59 mL/sec/1.73m2) in child up to 18 years of age [ ]5) Cessation of urine output indicated by ALL of the following [ ]A. Adequate volume status [ ]B. Inadequate urine output as indicated by ANY ONE of the following [ ]a. Urine output less than 0.3 mL/kg/hr for 24 hours [ ]b. Anuria (urine output less than 0.1 mL/kg/hr) for 12 hours [ ] iii) Aortic dissection [ ] iv) Myocardial Ischemia [ ] v) Left ventricular heart failure [ ]vi) Retinal Hemorrhage [ ]vii) Other significant finding [ ]c) Hypertension in child requiring inpatient treatment as indicated by ALL of the following(14)(15)(16) [ ] i) Outpatient treatment not effective, not available, or not appropriate [ ]ii) SBP or DBP greater than 95th percentile for age [ ]iii) Evidence of acute end organ damage as indicated by ANY ONE of the following [ ]1) Altered mental status [ ]2) Acute renal failure as indicated by new onset of ANY ONE of the following(9)(10)(11)(12)(13) [ ]A. 3-fold rise in serum creatinine from baseline [ ]B. Serum creatinine greater than 4 mg/dL (354 micromoles/L) with acute rise greater than 0.5 mg/dL (44.2 micromoles/L) [ ]C. Reduction of more than 75% in estimated glomerular filtration rate from baseline [ ]D. Estimated glomerular filtration rate less than 35 mL/min/1.73m2 (0.59 mL/sec/1.73m2) in child up to 18 years of age [ ]E. Cessation of urine output indicated by ALL of the following [ ]a. Adequate volume status [ ]b. Inadequate urine output as indicated by ANY ONE of the following [ ]i) Urine output less than 0.3 mL/kg/hr for 24 hours [ ]ii) Anuria ( urine output less than 0.1 mL/kg/hr) for 12 hours [ ]3) Severe headache [ ]4) Visual disturbance [ ]5) Retinal hemorrhage [ ]6) Other significant finding [ ]XIII. Complications of transplanted heart indicated by ANY ONE of the following(61): [ ]a) Acute graft rejection requiring inpatient management (eg, intravenous immunosuppression)(62)(63) [ ]b) Acute graft heart failure indicated by ANY ONE of the following(64): [ ]i) Hemodynamic instability [ ]ii) Cardiac arrhythmias of immediate concern [ ]iii) Pulmonary edema that is very severe (eg, mechanical ventilation needed, imminent or likely, need for 100% oxygen to keep oxygen saturation above 90%) [ ]iv) Pulmonary edema that is persistent as indicated by ALL of the following: [ ]1) New need for oxygen therapy to keep oxygen saturation above 90% (or increased FiO2 need from baseline) [ ]2) Has not improved sufficiently with emergency department or observation care IV diuretics or other heart failure treatments[E] [ ]v) Altered mental status that is severe or persistent [ ]vi) Increased creatinine (new on laboratory test) with reduction of more than 50% in estimated glomerular filtration rate from baseline [ ]vii) Progressively (ongoing) rising creatinine (known from past laboratory test) with reduction of more than 25% in estimated glomerular filtration rate from baseline [ ]viii) Acute renal failure [ ]ix) Acute peripheral ischemia (eg, examination shows pulseless, cool, mottled, or cyanotic extremity) [ ]x) Pulmonary artery catheter monitoring needed [ ]xi) Other sign or symptom of heart failure requiring inpatient treatment (ie, too severe or not responsive to outpatient and observation care treatment) [ ]c) Infection requiring inpatient management (eg, Hemodynamic instability, need for intravenous antimicrobial treatment)(66)(67)(68)(69)(70) [ ]d) Cardiac allograft vasculopathy requiring inpatient management ( eg evidence of cardiac ischemia)(71) [ ]e) Other complication of transplanted heart (eg, stroke, severe pulmonary hypertension, severe valvular dysfunction) requiring inpatient management(72) The original [facility] [employer] content created by [facility] [employer] has been revised. The portions of the content which have been revised are identified through the use of italic text or in bold, and [facility] has neither reviewed nor approved the modified material. All other unmodified content is copyright [facility] [employer]. Please see references footnoted in the original [facility] [employer] edition 2016
[2016-11-17] MEDS ORDERED: ASPIRIN PO ONE (18:11)
--- NOTE | 2016-11-17 19:51 | History and Physical Report ---
Medications and Allergies Allergies Allergy/AdvReac Type Severity Reaction Status Date / Time codeine Allergy Hives Verified 11/17/16 12:40 Beef Containing Products AdvReac Vomiting Verified 11/17/16 12:40 Home Medications Medication Instructions Recorded Confirmed Last Taken Type Diazepam Tab [Valium] 5 mg PO TID PRN #15 tablet 02/17/15 11/17/16 11/09/16 Rx Famotidine [Pepcid] 20 mg PO BID #60 tablet 05/18/16 11/17/16 11/09/16 Rx NIFEdipine XL [Procardia Xl] 60 mg PO Q12HR #60 tablet 05/18/16 11/17/16 Rx hydrALAZINE [Apresoline TAB] 25 mg PO Q8HR #90 tablet 05/18/16 11/17/16 Rx Ibuprofen [Motrin] 800 mg PO Q8HR PRN 11/17/16 11/17/16 11/09/16 History diphenhydrAMINE [Benadryl CAP] 25 mg PO Q8HR PRN 11/17/16 11/17/16 11/09/16 History Exam - Constitutional Vitals: Temp Pulse Resp BP Pulse Ox 98.3 F 84 16 175/118 97 11/17/16 12:43 11/17/16 18:24 11/17/16 16:40 11/17/16 18:24 11/17/16 16:40 Results - Labs CBC & Chem 7: 11/17/16 13:01 11/17/16 13:01 Labs: Abnormal lab results 11/17/16 11/17/16 11/17/16 Range/Units 13:01 13:01 16:43 MCV 75 L (79-97) fl MCH 23 L (28-32) pg RDW 21.9 H (13.2-15.2) % Carbon Dioxide 32 H (22-30) mmol/L Glucose 121 H (65-100) mg/dL U Epithel Cells (Auto) 29.0 H (0-13.0) /HPF
[2016-11-17] MEDS ORDERED: APRESOLINE IV ONE (21:36)
[2016-11-18 00:33] VITALS: BP 170/95
--- NOTE | 2016-11-18 08:05 | XRay Report ---
PA CHEST: Chest pain. PA view of the chest demonstrates a normal mediastinal and cardiac contour with clear lungs and normal bony and soft tissue structures. IMPRESSION: Normal PA chest.
== END 2016-11-18 00:34 | disposition admitted as inpatient to this hospital (09) ==
LOC: ED 12:17
DX: R07.9 Chest pain, unspecified (principal); R51 Headache; Z86.73 Personal history of transient ischemic attack (TIA), and cerebral infarction without residual deficits; I10 Essential (primary) hypertension; M19.90 Unspecified osteoarthritis, unspecified site; J45.909 Unspecified asthma, uncomplicated; D64.9 Anemia, unspecified; E66.01 Morbid (severe) obesity due to excess calories; Z91.018 Allergy to other foods; Z88.5 Allergy status to narcotic agent
CPT/HCPCS: 36415; 70450; 71010; 80048; 81001; 84484; 84703; 85025; 85379; 93005; 93010; 96374; 96375; 99285; J0360; J2270; J2405

== ENCOUNTER 2017-03-11 14:13 | Emergency (ER) | payer MEDICAID ==
[2017-03-11 15:33] LABS: Alanine Aminotransferase 10 units/L (7-56); Albumin 3.8 g/dL (3.9-5); Alkaline Phosphatase 51 units/L (35-129); Anion Gap 14 mmol/L; BUN/Creatinine Ratio 15; Blood Urea Nitrogen 9 mg/dL (7-17); Calcium 9.6 mg/dL (8.4-10.2); Carbon Dioxide 34 mmol/L (22-30); Chloride 98.4 mmol/L (98-107); Glucose 125 mg/dL (65-100); Lipase 16 units/L (13-60); Potassium 3.9 mmol/L (3.6-5.0); Sodium 142 mmol/L (137-145); Total Protein 7.5 g/dL (6.3-8.2)
[2017-03-11 16:39] LABS: Eosinophils % (Auto) 2.2 % (0.0-4.3)
[2017-03-11 16:45] LABS: Basophils % (Auto) 0.8 % (0.0-1.8); Hematocrit 31.2 % (30.3-42.9); Hemoglobin 9.6 gm/dl (10.1-14.3); Mean Corpuscular HGB Conc 31 % (30-34); Mean Corpuscular Hemoglobin 21 pg (28-32); Mean Corpuscular Volume 69 fl (79-97); Platelet Count 366 K/mm3 (140-440); Red Blood Count 4.52 M/mm3 (3.65-5.03); Red Cell Distribution Width 20.9 % (13.2-15.2); White Blood Count 6.5 K/mm3 (4.5-11.0)
[2017-03-11] MEDS ORDERED: NORCO 10/325 PO ONE (20:27)
[2017-03-11] MEDS ORDERED: ZOFRAN IM ONE (20:28)
--- NOTE | 2017-03-11 20:33 | Emergency Department Report ---
ED Abdominal Pain HPI - General Chief Complaint: Abdominal Pain Stated Complaint: RT SIDE PAIN Time Seen by Provider: 03/11/17 20:23 Source: patient, EMS Mode of arrival: Ambulatory Limitations: No Limitations - History of Present Illness Initial Comments: Patient is 46 years old female morbidly obese coming today with right flank pain that radiated to her right groin, associated with dysuria and urinary frequency patient denied hematuria. Complain of nausea but no vomiting no fever. No other complaint at this time. MD Complaint: abdominal pain, flank pain -: Gradual, days(s) Location: R flank Radiation: R flank, back Migration to: no migration Severity scale (0 -10): 10 Quality: stabbing, sharp Consistency: intermittent Associated Symptoms: nausea, dysuria. denies: vomiting, diarrhea, chills - Related Data Home Medications Medication Instructions Recorded Confirmed Last Taken Ibuprofen [Motrin 800 MG tab] 800 mg PO Q8HR PRN 11/17/16 02/23/17 02/22/17 Atenolol [Tenormin] 50 mg PO DAILY 02/23/17 02/23/17 02/22/17 Cyclobenzaprine [Flexeril 10 MG 10 mg PO TID PRN 02/23/17 02/23/17 02/22/17 TAB] Losartan/Hydrochlorothiazide 1 each PO DAILY 02/23/17 02/23/17 02/22/17 [Losartan-Hctz 100-25 mg Tab] NIFEdipine [Nifedipine ER] 90 mg PO DAILY 02/23/17 02/23/17 02/22/17 Previous Rx's Medication Instructions Recorded Last Taken Type ALBUTEROL NEB's [Proventil 0.083% 2.5 mg IH Q4HRT PRN #30 day 02/25/17 Unknown Rx NEBS] Acetaminophen [Acetaminophen TAB] 325 mg PO Q4H PRN #30 tablet 02/25/17 Unknown Rx Albuterol Sulfate [Proventil Hfa] 6.7 gm IH QID PRN #1 02/25/17 02/22/17 Rx Aspirin [Aspirin TAB] 325 mg PO QDAY #30 tablet 02/25/17 Unknown Rx Famotidine [Pepcid] 20 mg PO BID #60 tablet 02/25/17 Unknown Rx NIFEdipine XL [Procardia Xl] 90 mg PO QDAY #30 tablet 02/25/17 Unknown Rx Allergies Allergy/AdvReac Type Severity Reaction Status Date / Time codeine Allergy Hives Verified 11/17/16 12:40 Beef Containing Products AdvReac Vomiting Verified 11/17/16 12:40 ED Review of Systems ROS: Stated complaint: RT SIDE PAIN Other details as noted in HPI Comment: All other systems reviewed and negative Constitutional: denies: chills, fever Respiratory: denies: cough, orthopnea, shortness of breath, SOB with exertion, SOB at rest Cardiovascular: denies: chest pain, palpitations, dyspnea on exertion Gastrointestinal: abdominal pain, nausea. denies: vomiting, diarrhea, constipation, hematemesis, melena, hematochezia Genitourinary: urgency, dysuria, frequency. denies: hematuria, discharge, abnormal menses, dyspareunia Musculoskeletal: back pain Neurological: denies: headache, weakness, numbness, paresthesias ED Past Medical Hx - Past Medical History Hx Hypertension: Yes Hx CVA: Yes Hx Diabetes: No Hx Arthritis: Yes Hx Asthma: Yes (inhaler PRN) Additional medical history: anemia. MORBID OBESITY. SLEEP APNEA - Surgical History Hx Appendectomy: Yes Additional Surgical History: X 3. R knee surgery, right wrist surgery. RIGHT OVARY REMOVED - Social History Smoking Status: Never Smoker Substance Use Type: None - Medications Home Medications: Home Medications Medication Instructions Recorded Confirmed Last Taken Type Ibuprofen [Motrin 800 MG tab] 800 mg PO Q8HR PRN 11/17/16 02/23/17 02/22/17 History Atenolol [Tenormin] 50 mg PO DAILY 02/23/17 02/23/17 02/22/17 History Cyclobenzaprine [Flexeril 10 MG 10 mg PO TID PRN 02/23/17 02/23/17 02/22/17 History TAB] Losartan/Hydrochlorothiazide 1 each PO DAILY 02/23/17 02/23/17 02/22/17 History [Losartan-Hctz 100-25 mg Tab] NIFEdipine [Nifedipine ER] 90 mg PO DAILY 02/23/17 02/23/17 02/22/17 History ALBUTEROL NEB's [Proventil 0.083% 2.5 mg IH Q4HRT PRN #30 day 02/25/17 Unknown Rx NEBS] Acetaminophen [Acetaminophen TAB] 325 mg PO Q4H PRN #30 tablet 02/25/17 Unknown Rx Albuterol Sulfate [Proventil Hfa] 6.7 gm IH QID PRN #1 02/25/17 02/23/17 Rx Aspirin [Aspirin TAB] 325 mg PO QDAY #30 tablet 02/25/17 Unknown Rx Famotidine [Pepcid] 20 mg PO BID #60 tablet 02/25/17 Unknown Rx NIFEdipine XL [Procardia Xl] 90 mg PO QDAY #30 tablet 02/25/17 Unknown Rx ED Physical Exam - General Limitations: No Limitations General appearance: alert, in no apparent distress - Head Head exam: Present: atraumatic, normocephalic - Eye Eye exam: Present: normal appearance, PERRL - ENT ENT exam: Present: normal exam, mucous membranes moist - Neck Neck exam: Present: normal inspection, full ROM. Absent: tenderness, meningismus, lymphadenopathy - Respiratory Respiratory exam: Present: normal lung sounds bilaterally. Absent: respiratory distress, wheezes, rales, rhonchi, accessory muscle use, decreased breath sounds , prolonged expiratory - Cardiovascular Cardiovascular Exam: Present: regular rate, normal rhythm, normal heart sounds - GI/Abdominal GI/Abdominal exam: Present: soft, normal bowel sounds. Absent: distended, tenderness, guarding, rebound, rigid, mass, bruit, pulsatile mass, hernia - Back Exam Back exam: Present: normal inspection, CVA tenderness (R). Absent: CVA tenderness (L), muscle spasm, paraspinal tenderness, vertebral tenderness - Neurological Exam Neurological exam: Present: alert, oriented X3, CN II-XII intact, normal gait - Psychiatric Psychiatric exam: Present: normal affect - Skin Skin exam: Present: warm, intact, normal color ED Course Vital Signs 03/11/17 03/11/17 03/11/17 14:41 20:11 21:01 Temperature 98.2 F 97.7 F Pulse Rate 86 78 Respiratory 28 H 18 18 Rate Blood Pressure 137/69 Blood Pressure 169/91 [Left] O2 Sat by Pulse 100 97 Oximetry 03/11/17 23:02 Temperature Pulse Rate Respiratory 18 Rate Blood Pressure Blood Pressure [Left] O2 Sat by Pulse Oximetry - Reevaluation(s) Reevaluation #1: 03/11/17 23:10 Patient stated that her pain is better after pain medicine. ED Medical Decision Making - Lab Data Result diagrams: 03/11/17 14:54 03/11/17 14:54 - Radiology Data Radiology results: report reviewed CT abdomen and pelvis showed that he 35 mm still on the right mid-ureter. No hydronephrosis. Critical care attestation.: If time is entered above; I have spent that time in minutes in the direct care of this critically ill patient, excluding procedure time. ED Disposition Clinical Impression: Acute flank pain, Ureterolithiasis Disposition: TO HOME OR SELFCARE Is pt being admited?: No Condition: Stable Instructions: Abdominal Pain (ED), Kidney Stones (ED) Referrals: PRIMARY CARE, [Primary Care Provider] - 3-5 Days
[2017-03-11 21:55] LABS: Bacteria,Urine 1+ /HPF (Negative); Bilirubin,Urine NEG (Negative); Blood,Urine MOD (Negative); Ketones,Urine NEG (Negative); Leukocyte Esterase,Urine SM (Negative); Mucus,Urine FEW /HPF; Nitrite,Urine NEG (Negative)
[2017-03-11 21:58] LABS: Protein,Urine >500 mg/dL (Negative)
[2017-03-11] MEDS ORDERED: DILAUDID IM ONE (22:49)
--- NOTE | 2017-03-11 22:55 | Cat Scan Report ---
FINAL REPORT PROCEDURE: CT ABDOMEN PELVIS WO CON TECHNIQUE: Computerized axial tomography of the abdomen and pelvis was performed without intravenous contrast. This study is performed without intravascular contrast material and its sensitivity for abdominal and pelvic pathology, including neoplasms, inflammation, abscess, free fluid, thrombosis, arterial dissection and infarction, is reduced compared with a contrast enhanced study. HISTORY: ABDOMINAL PAIN, right flank pain COMPARISON: CT exam dated May 10, 2016 FINDINGS: Liver, spleen, gallbladder, and pancreas display no abnormalities. Adrenal glands and abdominal aorta are normal in size. No renal abnormality is seen. There is a stone in the right ureter at the level of the pelvic inlet. It measures 5 x 3 millimeters in greatest axial dimensions. This causes no hydronephrosis. Bladder appears normal. There is a probable 3.2 cm cyst in the left ovary. Right ovary is not definitely identified. Appendix is not seen but no pericecal inflammation is seen. No bowel obstruction is seen. There is no free pelvic fluid. Uterus is mildly prominent and lobulated. There maybe fibroids. IMPRESSION: 3 x 5 millimeter stone in the mid right ureter causes no hydronephrosis.
[2017-03-11] MEDS ORDERED: REGLAN IM ONE (23:54)
[2017-03-11] MEDS ORDERED: CATAPRES PO ONE (23:55)
[2017-03-12] MEDS ORDERED: BENADRYL ONE (00:01)
[2017-03-12] MEDS ORDERED: BENADRYL IM ONE (00:06)
[2017-03-12 02:47] VITALS: BP 177/100
== END 2017-03-12 01:10 | disposition home or self-care (01) ==
LOC: ED 14:13
DX: N20.1 Calculus of ureter (principal); Z86.73 Personal history of transient ischemic attack (TIA), and cerebral infarction without residual deficits; M19.90 Unspecified osteoarthritis, unspecified site; J45.909 Unspecified asthma, uncomplicated; Z90.49 Acquired absence of other specified parts of digestive tract; Z91.018 Allergy to other foods; Z79.2 Long term (current) use of antibiotics
CPT/HCPCS: 36415; 74176; 80053; 81001; 81025; 83690; 85025; 96372; 99284; J1170; J1200; J2405; J2765

== ENCOUNTER 2017-03-15 06:03 | Emergency (ER) | payer MEDICAID ==
[2017-03-15 07:41] LABS: Anion Gap 14 mmol/L; BUN/Creatinine Ratio 12; Blood Urea Nitrogen 7 mg/dL (7-17); Calcium 9.4 mg/dL (8.4-10.2); Carbon Dioxide 35 mmol/L (22-30); Chloride 95.5 mmol/L (98-107); Glucose 116 mg/dL (65-100); Potassium 3.8 mmol/L (3.6-5.0); Sodium 141 mmol/L (137-145)
[2017-03-15 07:53] LABS: Basophils % (Auto) 0.7 % (0.0-1.8); Hematocrit 31.3 % (30.3-42.9); Hemoglobin 9.5 gm/dl (10.1-14.3); Mean Corpuscular HGB Conc 30 % (30-34); Platelet Count 363 K/mm3 (140-440); Red Blood Count 4.48 M/mm3 (3.65-5.03); White Blood Count 6.5 K/mm3 (4.5-11.0)
[2017-03-15 07:54] LABS: Mean Corpuscular Hemoglobin 21 pg (28-32); Mean Corpuscular Volume 70 fl (79-97); Red Cell Distribution Width 20.9 % (13.2-15.2)
[2017-03-15 08:49] LABS: Bilirubin,Urine Negative (Negative); Ketones,Urine Negative (Negative)
[2017-03-15 08:50] LABS: Blood,Urine Large (Negative); Leukocyte Esterase,Urine Trace (Negative); Nitrite,Urine Negative (Negative); Urobilinogen,Urine < 2.0 mg/dL (<2.0)
[2017-03-15] MEDS ORDERED: ZOFRAN IV ONE (08:53)
[2017-03-15] MEDS ORDERED: SUBLIMAZE IV ONE (08:53)
[2017-03-15] MEDS ORDERED: TORADOL IV ONE (08:54)
[2017-03-15 08:58] LABS: Bacteria,Urine 1+ /HPF (Negative); Trichomonas,Urine Present /HPF
--- NOTE | 2017-03-15 09:00 | Emergency Department Report ---
HPI - General Chief Complaint: Chest Pain Time Seen by Provider: 03/15/17 08:26 - HPI HPI: Room 2 The patient is a 46-year-old female presenting with a chief complaint of right flank pain. The patient states for the past 5 days she has had sharp pain in her right flank. Patient states that she came to the hospital was diagnosed with renal colic. Patient states the pain is increased since her last ED visit. Patient does admit to nausea and vomiting in addition to hematuria. Patient currently gives her pain a score of 10/10. Patient denies any other complaints Location: Right flank Duration: 5 days Quality: Sharp Severity: 10/10 Modifying factors: [see above] Context: [see above] Mode of transportation: Unknown ED Past Medical Hx - Past Medical History Previous Medical History?: Yes Hx Hypertension: Yes Hx CVA: Yes Hx Heart Attack/AMI: Yes Hx Arthritis: Yes Hx Asthma: Yes (inhaler PRN) Additional medical history: anemia. MORBID OBESITY. SLEEP APNEA - Surgical History Past Surgical History?: Yes Hx Appendectomy: Yes Additional Surgical History: X 3. R knee surgery, right wrist surgery. RIGHT OVARY REMOVED. Heart cath - Family History Family history: no significant - Social History Smoking Status: Never Smoker - Medications Home Medications: Home Medications Medication Instructions Recorded Confirmed Last Taken Type Ibuprofen [Motrin 800 MG tab] 800 mg PO Q8HR PRN 11/17/16 03/15/17 03/15/17 History Atenolol [Tenormin] 50 mg PO DAILY 02/23/17 03/15/17 03/15/17 History Cyclobenzaprine [Flexeril 10 MG 10 mg PO TID PRN 02/23/17 03/15/17 03/15/17 History TAB] NIFEdipine [Nifedipine ER] 90 mg PO DAILY 02/23/17 03/15/17 03/15/17 History ALBUTEROL NEB's [Proventil 0.083% 2.5 mg IH Q4HRT PRN #30 day 02/25/17 03/15/17 03/15/17 Rx NEBS] Famotidine [Pepcid] 20 mg PO BID #60 tablet 02/25/17 03/15/17 03/15/17 Rx Ondansetron [Zofran Odt] 4 mg PO Q8HR PRN #14 tab.rapdis 03/11/17 03/15/1703/15 Rx oxyCODONE /ACETAMINOPHEN [Percocet 1 tab PO Q6HR PRN #14 tablet 03/11/1703/15/17 Rx 5/325] Dicyclomine HCl 20 mg PO QDAY 03/15/17 03/15/17 03/15/17 History Famotidine 20 mg PO QDAY 03/15/17 03/15/17 03/15/17 History Ibuprofen [Motrin 800 MG tab] 800 mg PO Q8HR PRN #20 tablet 03/15/17 Unknown Rx Losartan/Hydrochlorothiazide 1 each PO QDAY 03/15/17 03/15/17 03/15/17 History [Losartan-Hctz 50-12.5 mg Tab] SUMAtriptan SUCCINATE [Imitrex] 100 mg PO QDAY 03/15/17 03/15/17 03/15/17 History Sulfamethoxazole/Trimethoprim 1 each PO BID #14 tablet 03/15/17 Unknown Rx [Bactrim DS TAB] traMADol [Ultram] 50 mg PO Q6HR PRN #14 tablet 03/15/17 Unknown Rx ED Review of Systems ROS: Stated complaint: POSS KIDNEY STONE/CP Other details as noted in HPI Comment: All other systems reviewed and negative Constitutional: denies: chills, fever Eyes: denies: eye pain, eye discharge, vision change ENT: denies: ear pain, throat pain Respiratory: denies: cough, shortness of breath, wheezing Cardiovascular: denies: chest pain, palpitations Endocrine: no symptoms reported Gastrointestinal: abdominal pain, nausea, vomiting Genitourinary: hematuria Musculoskeletal: back pain Skin: denies: rash, lesions Neurological: denies: headache, weakness, paresthesias Psychiatric: denies: anxiety, depression Hematological/Lymphatic: denies: easy bleeding, easy bruising Physical Exam - Physical Exam Vital Signs: Vital Signs 03/15/17 03/15/17 03/15/17 06:30 06:39 07:56 Temperature 98.0 F Pulse Rate 77 Respiratory 16 16 22 Rate Blood Pressure Blood Pressure 196/104 [Left] O2 Sat by Pulse 100 100 95 Oximetry 03/15/17 03/15/17 08:01 08:03 Temperature 97.6 F Pulse Rate 81 79 Respiratory 13 22 Rate Blood Pressure 186/92 Blood Pressure 186/92 [Left] O2 Sat by Pulse 96 97 Oximetry Physical Exam: GENERAL: The patient is well-developed well-nourished female lying on stretcher appearing to be in mild discomfort HEENT: Normocephalic. Atraumatic. Extraocular motions are intact. Patient has moist mucous membranes. NECK: Supple. Trachea midline CHEST/LUNGS: Clear to auscultation. There is no respiratory distress noted. HEART/CARDIOVASCULAR: Regular. There is no tachycardia. There is no gallop rub or murmur. ABDOMEN: Abdomen is soft. Patient has normal bowel sounds. There is no abdominal distention. SKIN: There is no rash. There is no edema. There is no diaphoresis. NEURO: The patient is awake, alert, and oriented. The patient is cooperative. The patient has normal speech MUSCULOSKELETAL: There is no evidence of acute injury. ED Course Vital Signs 03/15/17 03/15/17 03/15/17 06:30 06:39 07:56 Temperature 98.0 F Pulse Rate 77 Respiratory 16 16 22 Rate Blood Pressure Blood Pressure 196/104 [Left] O2 Sat by Pulse 100 100 95 Oximetry 03/15/17 03/15/17 08:01 08:03 Temperature 97.6 F Pulse Rate 81 79 Respiratory 13 22 Rate Blood Pressure 186/92 Blood Pressure 186/92 [Left] O2 Sat by Pulse 96 97 Oximetry - Consultations Consultation #1: 03/15/17 09:34 Received call from radiologist Dr. Helm stating he believes what was previously read as a ureteral stone is probably a phlebolith. States CT with IV contrast will help with further evaluation ED Medical Decision Making - Lab Data Result diagrams: 03/15/17 07:07 03/15/17 07:07 Laboratory Tests 03/15/17 03/15/17 03/15/17 07:07 07:07 08:35 WBC 6.5 RBC 4.48 Hgb 9.5 L Hct 31.3 MCV 70 L MCH 21 L MCHC 30 RDW 20.9 H Plt Count 363 Lymph % (Auto) 29.1 [place] % (Auto) 6.2 Eos % (Auto) 2.0 Baso % (Auto) 0.7 Lymph # 1.9 [place] # 0.4 Eos # 0.1 Baso # 0.0 Seg Neutrophils % 62.0 Seg Neutrophils # 4.0 Sodium 141 Potassium 3.8 Chloride 95.5 L Carbon Dioxide 35 H Anion Gap 14 BUN 7 Creatinine 0.6 L Estimated GFR > 60 BUN/Creatinine Ratio 12 Glucose 116 H Calcium 9.4 Troponin T < 0.010 Urine Color Yellow Urine Turbidity Clear Urine pH 7.0 Ur Specific [place] 1.010 Urine Protein 100 mg/dl Urine Glucose (UA) Negative Urine Ketones Negative Urine Blood Large A Urine Nitrite Negative Urine Bilirubin Negative Urine Urobilinogen < 2.0 Ur Leukocyte Esterase Trace Urine WBC (Auto) 10.0 H Urine RBC (Auto) 5.0 U Epithel Cells (Auto) 10.0 Urine Bacteria (Auto) 1+ Urine Trichomonas Present - EKG Data -: EKG Interpreted by Me EKG shows normal: sinus rhythm Rate: normal - EKG Data When compared to previous EKG there are: no significant change Interpretation: unchanged when compared t (02/24/2017) - Radiology Data Radiology results: report reviewed (CT abdomen and pelvis, CT abdomen and pelvis with IV contrast), image reviewed (CT abdomen and pelvis, CT abdomen and pelvis with IV contrast) CT ABDOMEN AND PELVIS WITHOUT CONTRAST INDICATION: Right flank pain. COMPARISON: 03/11/2017 FINDINGS: Noncontrast abdomen and pelvis CT performed. LUNG BASES: Right hemidiaphragm slightly elevated. ABDOMEN: Please note that sensitivity to detect small visceral lesions is limited due to the absence of intravenous or oral contrast as also due to patient's body habitus. Grossly unremarkable unenhanced liver, spleen, gallbladder, pancreas, adrenals, aorta and IVC. Nonopacified GI tract evaluation limited, though grossly nonobstructive. Rectus diastasis again seen, approximately 6.7 cm at the umbilicus with a fat containing umbilical hernia transverse defect approximately 2.7 cm. PELVIS: Uterus again rises to the level of the umbilicus with an 8mm calcification on the right again possibly gonadal vein phlebolith, also seen on 05/10/2016 and 04/22/2016 CTs with interval resolution of surrounding inflammatory changes in this region/right adnexa/ovary since then. Its location however is in close proximity to coursing right ureter. Left adnexa/ovary and non-opacified urinary bladder and the rectosigmoid within normal limits. Stable bilateral iliac lymph nodes, as approximately 2.4 cm on the left, axial image 315, series 2. No free fluid or significant adenopathy. Lower thoracic spine degenerative spurring and disc degeneration with vacuum phenomena noted. L5-S1 vacuum disc phenomenon also seen. Bilateral L4-L5 facet degenerative changes. CONCLUSION: 1. No acute CT abnormality or significant interval change since 4 days ago. Approximately 8 mm calcification on the right may represent gonadal vein phlebolith, unchanged since March 2016, as detailed above, though its location is in close proximity to the right ureter that is difficult to accurately track on this unenhanced exam. However, no indirect evidence of obstruction as hydronephrosis or other radiopaque intrarenal calculi noted. 2. Few other incidental findings as rectus diastasis and fat containing umbilical hernia, amongst others, as described above. Thank you for the opportunity to participate in this patient's care. Transcribed By: RS Dictated By: MARVA MANLEY MD Electronically Authenticated By: MARVA MANLEY MD Signed Date/Time: 03/15/17938 DD/ 4 TD/TT: 03/15/17938 CT abdomen and pelvis with IV contrast (read by radiologist)- no acute CT abnormality or significant interval change with approximately 8 mm radiodensity represented a right gonadal vein phlebolith in the right mid ureteral stone scrotum. - Differential Diagnosis renal colic Critical care attestation.: If time is entered above; I have spent that time in minutes in the direct care of this critically ill patient, excluding procedure time. ED Disposition Clinical Impression: Acute right flank pain, UTI (urinary tract infection) Disposition: - TO HOME OR SELFCARE Is pt being admited?: No Does the pt Need Aspirin: No Condition: Stable Instructions: Urinary Tract Infection in Women (ED) Additional Instructions: Return to the emergency department immediately should you develop worsening symptoms, fever, inability to tolerate food or liquid or any other concerns. Prescriptions: Ibuprofen [Motrin 800 MG tab] 800 mg PO Q8HR PRN #20 tablet PRN Reason: Pain Sulfamethoxazole/Trimethoprim [Bactrim DS TAB] 1 each PO BID #14 tablet traMADol [Ultram] 50 mg PO Q6HR PRN #14 tablet PRN Reason: Pain Referrals: PRIMARY CAREMD [Primary Care Provider] - 3-5 Days WEI WILLIAMSON MD [Staff Physician] - 3-5 Days (Dr. Williamson is an orthopedic surgeon. Please follow up with him for further evaluation) Time of Disposition: 11:34
--- NOTE | 2017-03-15 09:44 | Cat Scan Report ---
CT ABDOMEN AND PELVIS WITHOUT CONTRAST INDICATION: Right flank pain. COMPARISON: 03/11/2017 FINDINGS: Noncontrast abdomen and pelvis CT performed. LUNG BASES: Right hemidiaphragm slightly elevated. ABDOMEN: Please note that sensitivity to detect small visceral lesions is limited due to the absence of intravenous or oral contrast as also due to patient's body habitus. Grossly unremarkable unenhanced liver, spleen, gallbladder, pancreas, adrenals, aorta and IVC. Nonopacified GI tract evaluation limited, though grossly nonobstructive. Rectus diastasis again seen, approximately 6.7 cm at the umbilicus with a fat containing umbilical hernia transverse defect approximately 2.7 cm. PELVIS: Uterus again rises to the level of the umbilicus with an 8mm calcification on the right again possibly gonadal vein phlebolith, also seen on 05/10/2016 and 04/22/2016 CTs with interval resolution of surrounding inflammatory changes in this region/right adnexa/ovary since then. Its location however is in close proximity to coursing right ureter. Left adnexa/ovary and non-opacified urinary bladder and the rectosigmoid within normal limits. Stable bilateral iliac lymph nodes, as approximately 2.4 cm on the left, axial image 315, series 2. No free fluid or significant adenopathy. Lower thoracic spine degenerative spurring and disc degeneration with vacuum phenomena noted. L5-S1 vacuum disc phenomenon also seen. Bilateral L4-L5 facet degenerative changes. CONCLUSION: 1. No acute CT abnormality or significant interval change since 4 days ago. Approximately 8 mm calcification on the right may represent gonadal vein phlebolith, unchanged since March 2016, as detailed above, though its location is in close proximity to the right ureter that is difficult to accurately track on this unenhanced exam. However, no indirect evidence of obstruction as hydronephrosis or other radiopaque intrarenal calculi noted. 2. Few other incidental findings as rectus diastasis and fat containing umbilical hernia, amongst others, as described above. Thank you for the opportunity to participate in this patient's care.
--- NOTE | 2017-03-15 11:12 | Cat Scan Report ---
CT ABDOMEN AND PELVIS WITH CONTRAST INDICATION: Right flank pain. COMPARISON: Noncontrast CT from earlier today. FINDINGS: Abdomen and pelvis CT performed following intravenous administration of 100 cc of Omnipaque 300. LUNG BASES: Stable. ABDOMEN: Stable without other significant abnormality identified. Specifically, no right hydronephrosis noted with the right mid ureter seen coursing infero-medially to approximately 8mm right gonadal vein phlebolith as on axial series 4, image 85. PELVIS: Stable. CONCLUSION: No acute CT abnormality or significant interval change with approximately 8mm radiodensity representing a right gonadal vein phlebolith and not a right mid ureteral stone, as described. Thank you for the opportunity to participate in this patient's care.
[2017-03-15] MEDS ORDERED: SUBLIMAZE ONE (11:45)
[2017-03-15] MEDS ORDERED: CATAPRES PO ONE (13:22)
[2017-03-15 14:38] VITALS: BP 187/99
== END 2017-03-15 13:50 | disposition home or self-care (01) ==
LOC: ED 06:03
DX: N39.0 Urinary tract infection, site not specified (principal); R10.30 Lower abdominal pain, unspecified; I10 Essential (primary) hypertension; I25.2 Old myocardial infarction; J45.909 Unspecified asthma, uncomplicated
CPT/HCPCS: 36415; 74176; 74177; 80048; 81001; 84484; 85025; 93005; 93010; 96374; 96375; 99285; J1885; J2405; J3010; Q9967

== ENCOUNTER 2017-06-19 08:44 | Outpatient (CLI) | payer MEDICAID | END 2017-06-19 08:45 | disposition home or self-care (01) | LOC: VAS 08:44 | PROVIDERS: ATTEND Internal Medicine | DX: M79.604 Pain in right leg (principal); M79.605 Pain in left leg; M79.89 Other specified soft tissue disorders | CPT/HCPCS: 93970 ==

== ENCOUNTER 2017-08-15 13:42 | Emergency (ER) | payer MEDICAID ==
[2017-08-15] MEDS ORDERED: ASPIRIN PO ONE (14:05)
--- NOTE | 2017-08-15 14:46 | Emergency Department Report ---
ED General Adult HPI - General Chief complaint: Chest Pain Stated complaint: CHEST PAIN Time Seen by Provider: 08/15/17 14:18 Source: EMS Mode of arrival: Ambulatory Limitations: Physical Limitation - History of Present Illness Initial comments: On 2 L his cane at baseline. For the past 3 days, has been feeling more fatigued with intermittent headache and chest pain. Patient states that her blood pressures then high for these past couple days as well. Her chest feels like her heart is fluttering, almost like a wave motion is going to her heart. She has been feeling more short of breath as well. Afebrile. Hasn't taken anything for it at home. + sick contacts. Patient was given nitroglycerin by EMS, which made her headache worse but did not affect her chest symptoms. Severity scale (0 -10): 7 - Related Data Home Medications Medication Instructions Recorded Confirmed Last Taken Ibuprofen [Motrin 800 MG tab] 800 mg PO Q8HR PRN 11/17/16 03/15/17 03/15/17 Atenolol [Tenormin] 50 mg PO DAILY 02/23/17 03/15/17 03/15/17 Cyclobenzaprine [Flexeril 10 MG 10 mg PO TID PRN 02/23/17 03/15/17 03/15/17 TAB] NIFEdipine [Nifedipine ER] 90 mg PO DAILY 02/23/17 03/15/17 03/15/17 Dicyclomine HCl 20 mg PO QDAY 03/15/17 03/15/17 03/15/17 Famotidine 20 mg PO QDAY 03/15/17 03/15/17 03/15/17 Losartan/Hydrochlorothiazide 1 each PO QDAY 03/15/17 03/15/17 03/15/17 [Losartan-Hctz 50-12.5 mg Tab] SUMAtriptan SUCCINATE [Imitrex] 100 mg PO QDAY 03/15/17 03/15/17 03/15/17 Previous Rx's Medication Instructions Recorded Last Taken Type ALBUTEROL NEB's [Proventil 0.083% 2.5 mg IH Q4HRT PRN #30 day 02/25/17 03/15/17 Rx NEBS] Famotidine [Pepcid] 20 mg PO BID #60 tablet 02/25/17 03/15/17 Rx Ondansetron [Zofran Odt] 4 mg PO Q8HR PRN #14 tab.rapdis 03/11/17 03/15/17 Rx oxyCODONE /ACETAMINOPHEN [Percocet 1 tab PO Q6HR PRN #14 tablet 03/11/17 Rx 5/325] Ibuprofen [Motrin 800 MG tab] 800 mg PO Q8HR PRN #20 tablet 03/15/17 Unknown Rx Sulfamethoxazole/Trimethoprim 1 each PO BID #14 tablet 03/15/17 Unknown Rx [Bactrim DS TAB] traMADol [Ultram] 50 mg PO Q6HR PRN #14 tablet 03/15/17 Unknown Rx Allergies Allergy/AdvReac Type Severity Reaction Status Date / Time codeine Allergy Hives Verified 11/17/16 12:40 Beef Containing Products AdvReac Vomiting Verified 11/17/16 12:40 ED Review of Systems ROS: Stated complaint: CHEST PAIN Other details as noted in HPI Comment: All other systems reviewed and negative Constitutional: chills, malaise Respiratory: cough, SOB at rest Cardiovascular: chest pain Neurological: weakness ED Past Medical Hx - Past Medical History Previous Medical History?: Yes Hx Hypertension: Yes Hx CVA: Yes Hx Heart Attack/AMI: Yes Hx Congestive Heart Failure: No Hx Diabetes: No Hx Deep Vein Thrombosis: No Hx Pulmonary Embolism: No Hx GERD: No Hx Liver Disease: No Hx Renal Disease: No Hx of Cancer: No Hx Sickle Cell Disease: No Hx Arthritis: Yes Hx Headaches / Migraines: No Hx Seizures: No Hx Kidney Stones: No Hx Psychiatric Treatment: No Hx Asthma: Yes (inhaler PRN) Hx COPD: No Hx Tuberculosis: No Hx Dementia: No Hx HIV: No Additional medical history: anemia. MORBID OBESITY. SLEEP APNEA - Surgical History Past Surgical History?: Yes Hx Coronary Stent: No Hx Open Heart Surgery: No Hx Internal Defibrillator: No Hx Cholecystectomy: No Hx Appendectomy: Yes Hx Breast Surgery: No Additional Surgical History: X 3. R knee surgery, right wrist surgery. RIGHT OVARY REMOVED. Heart cath - Social History Smoking Status: Never Smoker Substance Use Type: None - Medications Home Medications: Home Medications Medication Instructions Recorded Confirmed Last Taken Type Ibuprofen [Motrin 800 MG tab] 800 mg PO Q8HR PRN 11/17/16 03/15/17 03/15/17 History Atenolol [Tenormin] 50 mg PO DAILY 02/23/17 03/15/17 03/15/17 History Cyclobenzaprine [Flexeril 10 MG 10 mg PO TID PRN 02/23/17 03/15/17 03/15/17 History TAB] NIFEdipine [Nifedipine ER] 90 mg PO DAILY 02/23/17 03/15/17 03/15/17 History ALBUTEROL NEB's [Proventil 0.083% 2.5 mg IH Q4HRT PRN #30 day 02/25/17 03/15/17 03/15/17 Rx NEBS] Famotidine [Pepcid] 20 mg PO BID #60 tablet 02/25/17 03/15/17 03/15/17 Rx Ondansetron [Zofran Odt] 4 mg PO Q8HR PRN #14 tab.rapdis 03/11/17 03/15/1703/15 Rx oxyCODONE /ACETAMINOPHEN [Percocet 1 tab PO Q6HR PRN #14 tablet 03/11/1703/15/17 Rx 5/325] Dicyclomine HCl 20 mg PO QDAY 03/15/17 03/15/17 03/15/17 History Famotidine 20 mg PO QDAY 03/15/17 03/15/17 03/15/17 History Ibuprofen [Motrin 800 MG tab] 800 mg PO Q8HR PRN #20 tablet 03/15/17 Unknown Rx Losartan/Hydrochlorothiazide 1 each PO QDAY 03/15/17 03/15/17 03/15/17 History [Losartan-Hctz 50-12.5 mg Tab] SUMAtriptan SUCCINATE [Imitrex] 100 mg PO QDAY 03/15/17 03/15/17 03/15/17 History Sulfamethoxazole/Trimethoprim 1 each PO BID #14 tablet 03/15/17 Unknown Rx [Bactrim DS TAB] traMADol [Ultram] 50 mg PO Q6HR PRN #14 tablet 03/15/17 Unknown Rx ED Physical Exam - General Limitations: Physical Limitation General appearance: alert, in no apparent distress, obese - Head Head exam: Present: atraumatic, normocephalic - Eye Eye exam: Present: normal appearance - ENT ENT exam: Present: mucous membranes moist - Neck Neck exam: Present: normal inspection - Respiratory Respiratory exam: Present: decreased breath sounds (diminished bilaterally, on 2L NC). Absent: respiratory distress - Cardiovascular Cardiovascular Exam: Present: regular rate, normal rhythm. Absent: systolic murmur, diastolic murmur, rubs, gallop - GI/Abdominal GI/Abdominal exam: Present: soft. Absent: tenderness - Extremities Exam Extremities exam: Present: normal inspection - Back Exam Back exam: Present: normal inspection - Neurological Exam Neurological exam: Present: alert, oriented X3 - Psychiatric Psychiatric exam: Present: normal affect, normal mood - Skin Skin exam: Present: warm, dry, intact, normal color. Absent: rash ED Course Vital Signs 08/15/17 08/15/17 08/15/17 13:57 14:13 16:28 Temperature 97.7 F Pulse Rate 74 Respiratory 14 18 18 Rate Blood Pressure 146/78 Blood Pressure 146/78 [Right] O2 Sat by Pulse 99 99 Oximetry 08/15/17 08/15/17 08/15/17 16:29 17:18 17:30 Temperature Pulse Rate 89 89 Respiratory 18 Rate Blood Pressure 182/102 182/102 Blood Pressure [Right] O2 Sat by Pulse Oximetry ED Medical Decision Making - Lab Data Result diagrams: 08/15/17 14:42 08/15/17 14:42 - EKG Data -: EKG Interpreted by Me EKG shows normal: sinus rhythm, axis, intervals, QRS complexes, ST-T waves Rate: normal - Medical Decision Making 47 yo female with multiple comorbidities presents to the ER with generalized symptoms. Patient well-appearing on presentation. She is on her baseline oxygen of 2 L. Vitals are significant for hypertension, was has at baseline. Lab works unremarkable. Troponins negative 1. EKG is nonischemic. Patient had a left heart cath and January 2017. It was unremarkable at that time. Heart Score: 3. Low suspicion for ACS. We presentation to be related to a viral syndrome. Patient was given IV fluids/NSAIDs. On reevaluation, patient felt symptomatically improved. She is cleared for discharge. - Differential Diagnosis acs, dehydration, viral sydnrome, electrolyte abnormalities, htn Critical care attestation.: If time is entered above; I have spent that time in minutes in the direct care of this critically ill patient, excluding procedure time. ED Disposition Clinical Impression: Viral syndrome Disposition: DC-01 TO HOME OR SELFCARE Is pt being admited?: No Does the pt Need Aspirin: No Condition: Stable Instructions: Viral Syndrome (ED), Chest Pain (ED) Additional Instructions: You can take 1000 mg tylenol every 6 hours as needed for pain relief. Referrals: PRIMARY CARE, [Primary Care Provider] - 3-5 Days
[2017-08-15 15:13] LABS: Basophils # (Auto) 0.1 K/mm3 (0.0-0.1); Basophils % (Auto) 0.8 % (0.0-1.8); Eosinophils # (Auto) 0.1 K/mm3 (0.0-0.4); Eosinophils % (Auto) 1.7 % (0.0-4.3); Hematocrit 33.4 % (30.3-42.9); Hemoglobin 10.7 gm/dl (10.1-14.3); Lymphocytes # (Auto) 2.6 K/mm3 (1.2-5.4); Lymphocytes % (Auto) 35.6 % (13.4-35.0); Mean Corpuscular HGB Conc 32 % (30-34); Mean Corpuscular Volume 74 fl (79-97); Monocytes # (Auto) 0.5 K/mm3 (0.0-0.8); Monocytes % (Auto) 6.6 % (0.0-7.3); Platelet Count 305 K/mm3 (140-440); Red Blood Count 4.53 M/mm3 (3.65-5.03)
[2017-08-15 15:15] LABS: Mean Corpuscular Hemoglobin 24 pg (28-32); Red Cell Distribution Width 21.9 % (13.2-15.2)
[2017-08-15] MEDS ORDERED: TYLENOL PO ONE (15:27)
[2017-08-15] MEDS ORDERED: NACL 0.9% 1000 ML 1,000 ML IV ONE (15:54)
[2017-08-15 15:58] LABS: BUN/Creatinine Ratio 15; Blood Urea Nitrogen 9 mg/dL (7-17); Hemolysis Index 19
[2017-08-15] MEDS ORDERED: TORADOL IV ONE (16:02)
[2017-08-15] MEDS ORDERED: COZAAR PO ONE ×2 (17:12→17:17)
[2017-08-15] MEDS ORDERED: NORVASC PO ONE (17:17)
[2017-08-15] MEDS ORDERED: HCTZ PO ONE (17:17)
[2017-08-15 17:19] VITALS: BP 182/102
== END 2017-08-15 22:45 | disposition home or self-care (01) ==
LOC: ED 13:42
DX: B34.9 Viral infection, unspecified (principal); R07.89 Other chest pain; I10 Essential (primary) hypertension; G47.30 Sleep apnea, unspecified; J45.909 Unspecified asthma, uncomplicated; M19.90 Unspecified osteoarthritis, unspecified site; Z88.5 Allergy status to narcotic agent; Z91.018 Allergy to other foods
CPT/HCPCS: 36415; 80048; 84484; 85025; 93005; 93010; 96361; 96374; 99284; J1885; J7030

== ENCOUNTER 2018-07-25 15:20 | Inpatient (IN) | payer MEDICAID ==
[2018-07-25 16:24] LABS: Basophils % (Auto) 0.6 % (0.0-1.8); Eosinophils # (Auto) 0.1 K/mm3 (0.0-0.4); Hemoglobin 10.9 gm/dl (10.1-14.3); Lymphocytes # (Auto) 2.2 K/mm3 (1.2-5.4); Lymphocytes % (Auto) 35.7 % (13.4-35.0); Mean Corpuscular HGB Conc 32 % (30-34); Mean Corpuscular Volume 82 fl (79-97); Monocytes # (Auto) 0.5 K/mm3 (0.0-0.8); Monocytes % (Auto) 8.2 % (0.0-7.3); Platelet Count 332 K/mm3 (140-440); Red Blood Count 4.15 M/mm3 (3.65-5.03); Red Cell Distribution Width 17.1 % (13.2-15.2)
--- NOTE | 2018-07-25 16:28 | Emergency Department Report ---
ED Chest Pain HPI - General Chief Complaint: Chest Pain Stated Complaint: CHEST PAIN Time Seen by Provider: 07/25/18 15:59 Source: patient, EMS Mode of arrival: Stretcher Limitations: No Limitations - History of Present Illness Initial Comments: 48-year-old -[place] female presents to the emergency department via EMS from home with 2 complaints. First, the patient has been having sharp intermittent left-sided chest pains since about 11 AM this morning. It radiates to her left arm which causes her left arm to feel numb. She also has some as sociated shortness of breath. She took a full dose aspirin this morning for symptoms without much relief. Secondly, the patient dropped her oxygen tank on her right foot this morning as well when she was trying to change of the tank and has been having right foot pain since that time. She has a past medical history of CHF, coronary artery disease, hypertension, anemia, objective sleep apnea, GERD and COPD. Her primary care physician is Dr. Contsantino Rubi and her rac specialist is through [facility]. She denies any recent travel or sick contacts at home. Severity scale (0 -10): 7 - Related Data Home Medications Medication Instructions Recorded Confirmed Last Taken Losartan/Hydrochlorothiazide 1 each PO QDAY 03/15/17 04/13/18 03/15/17 [Losartan-Hctz 50-12.5 mg Tab] Previous Rx's Medication Instructions Recorded Last Taken Type Sulfamethoxazole/Trimethoprim 1 each PO BID #14 tablet 03/15/17 Unknown Rx [Bactrim DS TAB] traMADol [Ultram 50 MG tab] 50 mg PO Q6HR PRN #14 tablet 03/15/17 Unknown Rx Atenolol [Tenormin] 50 mg PO DAILY #30 tablet 04/14/18 Unknown Rx Cyclobenzaprine [Flexeril 10 MG 10 mg PO TID PRN #30 tablet 04/14/18 Unknown Rx TAB] Dicyclomine HCl 20 mg PO QDAY #30 tablet 04/14/18 Unknown Rx Famotidine 20 mg PO QDAY #30 tablet 04/14/18 Unknown Rx Famotidine [Pepcid] 20 mg PO BID #60 tablet 04/14/18 Unknown Rx Losartan [Cozaar] 100 mg PO QDAY #30 tablet 04/14/18 Unknown Rx NIFEdipine XL [Procardia Xl] 90 mg PO Q12HR #60 tablet 04/14/18 Unknown Rx Ondansetron [Zofran ODT TAB] 4 mg PO Q8HR PRN #14 tab.rapdis 04/14/18 Unknown Rx SUMAtriptan SUCCINATE [Imitrex] 100 mg PO QDAY #30 tablet 04/14/18 Unknown Rx hydroCHLOROthiazide [HCTZ] 12.5 mg PO QDAY #30 capsule 04/14/18 Unknown Rx oxyCODONE /ACETAMINOPHEN [Percocet 1 tab PO Q6HR PRN #14 tablet 04/14/18 Unknown Rx 5/325 mg] Allergies Allergy/AdvReac Type Severity Reaction Status Date / Time codeine Allergy Hives Verified 11/17/16 12:40 Beef Containing Products AdvReac Vomiting Verified 11/17/16 12:40 Heart Score - HEART Score History: Moderately suspicious EKG: Non-specific Age: 45-65 Risk factors: 1-2 risk factors Troponin: < normal limit HEART Score: 4 - Critical Actions Critical Actions: 4-6 pts:12-16.6% risk of adverse cardiac event. Should be admitted ED Review of Systems ROS: Stated complaint: CHEST PAIN Other details as noted in HPI Comment: All other systems reviewed and negative Constitutional: denies: chills, fever Eyes: denies: eye pain, vision change ENT: denies: ear pain, throat pain Respiratory: shortness of breath. denies: cough Cardiovascular: chest pain, edema. denies: palpitations Gastrointestinal: denies: abdominal pain, vomiting Genitourinary: denies: dysuria, discharge Musculoskeletal: arthralgia. denies: back pain Skin: denies: rash, lesions Neurological: denies: headache, weakness ED Past Medical Hx - Past Medical History Previous Medical History?: Yes Hx Hypertension: Yes Hx CVA: Yes Hx Heart Attack/AMI: Yes Hx Congestive Heart Failure: No Hx Diabetes: No Hx Deep Vein Thrombosis: No Hx Pulmonary Embolism: No Hx GERD: No Hx Liver Disease: No Hx Renal Disease: No Hx Sickle Cell Disease: No Hx Arthritis: Yes Hx Headaches / Migraines: No Hx Seizures: No Hx Kidney Stones: No Hx Psychiatric Treatment: No Hx Asthma: Yes (inhaler PRN) Hx COPD: No Hx Tuberculosis: No Hx Dementia: No Hx HIV: No Additional medical history: anemia. MORBID OBESITY. SLEEP APNEA. CHF - Surgical History Past Surgical History?: Yes Hx Coronary Stent: No Hx Open Heart Surgery: No Hx Internal Defibrillator: No Hx Cholecystectomy: No Hx Appendectomy: Yes Hx Breast Surgery: No Additional Surgical History: X 3. R knee surgery, right wrist surgery. RIGHT OVARY REMOVED. Heart cath - Social History Smoking Status: Unknown if ever smoked Substance Use Type: None - Medications Home Medications: Home Medications Medication Instructions Recorded Confirmed Last Taken Type Losartan/Hydrochlorothiazide 1 each PO QDAY 03/15/17 04/13/18 03/15/17 History [Losartan-Hctz 50-12.5 mg Tab] Sulfamethoxazole/Trimethoprim 1 each PO BID #14 tablet 03/15/17 04/13/18 Unknown Rx [Bactrim DS TAB] traMADol [Ultram 50 MG tab] 50 mg PO Q6HR PRN #14 tablet 03/15/17 04/13/18 Unknown Rx Atenolol [Tenormin] 50 mg PO DAILY #30 tablet 04/14/18 Unknown Rx Cyclobenzaprine [Flexeril 10 MG 10 mg PO TID PRN #30 tablet 04/14/18 Unknown Rx TAB] Dicyclomine HCl 20 mg PO QDAY #30 tablet 04/14/18 Unknown Rx Famotidine 20 mg PO QDAY #30 tablet 04/14/18 Unknown Rx Famotidine [Pepcid] 20 mg PO BID #60 tablet 04/14/18 Unknown Rx Losartan [Cozaar] 100 mg PO QDAY #30 tablet 04/14/18 Unknown Rx NIFEdipine XL [Procardia Xl] 90 mg PO Q12HR #60 tablet 04/14/18 Unknown Rx Ondansetron [Zofran ODT TAB] 4 mg PO Q8HR PRN #14 tab.rapdis 04/14/18 Unknown Rx SUMAtriptan SUCCINATE [Imitrex] 100 mg PO QDAY #30 tablet 04/14/18 Unknown Rx hydroCHLOROthiazide [HCTZ] 12.5 mg PO QDAY #30 capsule 04/14/18 Unknown Rx oxyCODONE /ACETAMINOPHEN [Percocet 1 tab PO Q6HR PRN #14 tablet 04/14/18 Unknown Rx 5/325 mg] ED Physical Exam - General Limitations: No Limitations - Other Other exam information: GENERAL: The patient is well-developed well-nourished. HEENT: Normocephalic. Atraumatic. Patient has moist mucous membranes. EYES: Extraocular motions are intact. Pupils are equal and reactive to light bilaterally. NECK: Supple. Trachea is midline. CHEST/LUNGS: Clear to auscultation. There is no respiratory distress noted. HEART/CARDIOVASCULAR: Regular. There is no tachycardia. There is no obvious murmur. ABDOMEN: Abdomen is soft, nontender. Patient has normal bowel sounds. Morbidly obese habitus. SKIN: There is some nonpitting swelling of the right foot. NEURO: The patient is awake, alert, and oriented. The patient is cooperative. The patient has no focal neurologic deficits. The patient has normal speech. MUSCULOSKELETAL: Tenderness to palpation to the dorsum of the right foot no obvious deformity. Decreased range of motion of the right foot secondary to pain. Radial pulse +2 over 4 to the left wrist. ED Course Vital Signs 07/25/18 07/25/18 07/25/18 15:40 15:43 15:45 Temperature 98.0 F Pulse Rate 78 99 H 79 Respiratory 14 19 25 H Rate Blood Pressure 162/86 162/86 Blood Pressure [Right] O2 Sat by Pulse 92 99 92 Oximetry 07/25/18 07/25/18 07/25/18 16:00 16:04 16:31 Temperature 98.0 F Pulse Rate 80 80 79 Respiratory 22 22 26 H Rate Blood Pressure 159/93 180/89 Blood Pressure 159/93 [Right] O2 Sat by Pulse 94 94 86 Oximetry 07/25/18 07/25/18 07/25/18 17:01 17:30 18:01 Temperature Pulse Rate 77 78 92 H Respiratory 21 28 H 27 H Rate Blood Pressure 161/90 166/88 173/67 Blood Pressure [Right] O2 Sat by Pulse 95 94 95 Oximetry 07/25/18 07/25/18 18:31 18:50 Temperature Pulse Rate 88 Respiratory 20 16 Rate Blood Pressure 153/90 Blood Pressure [Right] O2 Sat by Pulse 93 100 Oximetry OLINDA score - Olinda Score Age > 65: (0) No Aspirin use within the Past 7 Days: (1) Yes 3 or more CAD Risk Factors: (1) Yes 2 or more Angina events in past 24 hrs: (1) Yes Known CAD with more than 50% Stenosis: (0) No Elevated Cardiac Markers: (0) No ST Deviation Greater than 0.5mm: (0) No OLINDA Score: 3 ED Medical Decision Making - Lab Data Result diagrams: 07/25/18 16:13 07/25/18 16:13 - EKG Data -: EKG Interpreted by Me EKG shows normal: sinus rhythm, axis (left axis deviation), intervals, QRS complexes (LVH), ST-T waves Rate: normal - EKG Data When compared to previous EKG there are: no significant change Interpretation: unchanged when compared t (04/12/18), LVH - Radiology Data Radiology results: image reviewed interpreted by me: Chest x-ray shows some mild cardiomegaly otherwise there is no signs of any pleural effusions, focal consolidation, pneumothorax, pneumonia, or any other ac [place] process. X-ray of the right foot does not show any fracture, sedation or any acute process. - Medical Decision Making This patient presents to the emergency Department with complaints of acute left- sided chest pain as well as right foot pain. X-ray was done of the right foot that does not show any fracture, dislocation or any acute process. Patient had an EKG that does not show any signs of ST elevation RI, ischemia or dysrhythmia. Labs and an unremarkable thus far including negative troponins 2. She has a significant cardiac history and has not had a stress test since late 2016. She will be admitted to the hospital further evaluation and treatment was accepted for admission by the hospitalist, Dr. Sanchez. - Differential Diagnosis RI, foot fracture, GERD, COPD, Pneumonia Critical Care Time: No Critical care attestation.: If time is entered above; I have spent that time in minutes in the direct care of this critically ill patient, excluding procedure time. ED Disposition Clinical Impression: Morbid obesity, Acute chest pain Hypertension Qualifiers: Hypertension type: essential hypertension Qualified Code(s): I10 - Essential (primary) hypertension Disposition: OP ADMIT IP TO THIS HOSP Is pt being admited?: Yes Condition: Fair Instructions: Chest Pain (ED), Hypertension (ED) Referrals: LICO BAEZ MD [Primary Care Provider] - 3-5 Days Time of Disposition: 18:23
[2018-07-25 16:46] LABS: BUN/Creatinine Ratio 13; Blood Urea Nitrogen 10 mg/dL (7-17); Calcium 9.2 mg/dL (8.4-10.2); Hemolysis Index 21
--- NOTE | 2018-07-25 17:25 | XRay Report ---
PROCEDURE: XR FOOT 3+V RT TECHNIQUE: Frontal, lateral, oblique views right foot HISTORY: trauma, right foot pain COMPARISONS: None FINDINGS: There is no evidence of fracture, subluxation, lytic or blastic change or periosteal reaction. The joint spaces appear to be maintained. There are dorsal and plantar calcaneal spurs. There is diffuse edema of the visualized portion of the lower leg, ankle and foot. There are phleboliths in the anterior lower leg soft tissues. IMPRESSION: 1. Soft tissue swelling without evidence of acute bony abnormality. This document is electronically signed by Martine Carolina MD., July 25 2018 05:22:51 PM ET
[2018-07-25] MEDS ORDERED: MORPHINE ONE (17:32)
[2018-07-25] MEDS ORDERED: MORPHINE IV ONE (17:37)
--- NOTE | 2018-07-25 17:38 | XRay Report ---
PROCEDURE: XR CHEST 1V AP TECHNIQUE: Frontal portable view of the chest HISTORY: Chest Pain COMPARISONS: Chest x-ray dated April 13, 2018 the report of the prior studies not available for re view at the time of this dictation. FINDINGS: Visualization of detail is significantly limited by artifact created by large body habitus. There is no definite evidence of focal infiltrate, pneumothorax or pleural fluid collection. The cardiac silhouette appears to be enlarged similar in appearance to the previous study. There is prominence of the hilar structures bilaterally that is not significantly changed in the inte rval. The thoracic aorta and bony structures are unremarkable.Visualization of detail of the thoracic spine is limited. IMPRESSION: 1. Study degraded by artifact created by large body habitus. 2. No definite evidence of an acute pulmonary process. 3. Enlarged cardiac silhouette not significantly changed. 4. Prominence of the hilar structures bilaterally not significantly changed. This may represent adeno serena or prominent vascular structures. If further imaging is required, CT chest may be helpful. This document is electronically signed by Martine Carolina MD., July 25 2018 05:36:34 PM ET
[2018-07-25] MEDS ORDERED: PERCOCET 5/325 PO PRN (22:16)
[2018-07-25] MEDS ORDERED: TYLENOL PO PRN (22:16)
[2018-07-25] MEDS ORDERED: SODIUM CHLORIDE FLUSH SYRINGE 10 ML IV PRN (22:16)
--- NOTE | 2018-07-25 22:16 | History and Physical Report ---
History of Present Illness Date of examination: 07/25/18 Date of admission: 07/25/18 18:24 Chief complaint: Chest pain since 11 am History of present illness: 48-year-old -[place] female with PMH of CHF CAD COPD HTN Anemia and KELLE and Obesity comes in for Chest pain since 11 am.Sharp intermittent in nature.7/10 in intensity.No radiation.No diaphoresis palpitations.Has some SOB which is always present sec to her weight and chf.No orthopnea.Rt foot pain sec to droping O2 tank on her foot. Noexacerbating or relieving factors for Chest pain. Past Medical History Hypertension: Yes CVA: Yes Heart Attack/AMI: Yes Congestive Heart Failure Anemia MORBID OBESITY. SLEEP APNEA Surgical History Appendectomy X 3. R knee surgery, right wrist surgery. RIGHT OVARY REMOVED. Heart cath Social History Smoking Status: Unknown if ever smoked Substance Use Type: None Review of Systems ROS: Stated complaint: CHEST PAIN Other details as noted in HPI Comment: All other systems reviewed and negative Constitutional: denies: chills, fever Eyes: denies: eye pain, vision change ENT: denies: ear pain, throat pain Respiratory: shortness of breath. denies: cough Cardiovascular: chest pain, edema. denies: palpitations Gastrointestinal: denies: abdominal pain, vomiting Genitourinary: denies: dysuria, discharge Musculoskeletal: arthralgia. denies: back pain Skin: denies: rash, lesions Neurological: denies: headache, weakness Medications and Allergies Allergies Allergy/AdvReac Type Severity Reaction Status Date / Time codeine Allergy Hives Verified 11/17/16 12:40 Beef Containing Products AdvReac Vomiting Verified 11/17/16 12:40 Home Medications Medication Instructions Recorded Confirmed Last Taken Type Losartan/Hydrochlorothiazide 1 each PO QDAY 03/15/17 04/13/18 03/15/17 History [Losartan-Hctz 50-12.5 mg Tab] Sulfamethoxazole/Trimethoprim 1 each PO BID #14 tablet 03/15/17 04/13/18 Unknown Rx [Bactrim DS TAB] traMADol [Ultram 50 MG tab] 50 mg PO Q6HR PRN #14 tablet 03/15/17 04/13/18 Unknown Rx Atenolol [Tenormin] 50 mg PO DAILY #30 tablet 04/14/18 Unknown Rx Cyclobenzaprine [Flexeril 10 MG 10 mg PO TID PRN #30 tablet 04/14/18 Unknown Rx TAB] Dicyclomine HCl 20 mg PO QDAY #30 tablet 04/14/18 Unknown Rx Famotidine 20 mg PO QDAY #30 tablet 04/14/18 Unknown Rx Famotidine [Pepcid] 20 mg PO BID #60 tablet 04/14/18 Unknown Rx Losartan [Cozaar] 100 mg PO QDAY #30 tablet 04/14/18 Unknown Rx NIFEdipine XL [Procardia Xl] 90 mg PO Q12HR #60 tablet 04/14/18 Unknown Rx Ondansetron [Zofran ODT TAB] 4 mg PO Q8HR PRN #14 tab.rapdis 04/14/18 Unknown Rx SUMAtriptan SUCCINATE [Imitrex] 100 mg PO QDAY #30 tablet 04/14/18 Unknown Rx hydroCHLOROthiazide [HCTZ] 12.5 mg PO QDAY #30 capsule 04/14/18 Unknown Rx oxyCODONE /ACETAMINOPHEN [Percocet 1 tab PO Q6HR PRN #14 tablet 04/14/18 Unknown Rx 5/325 mg] Exam - Physical Exam Narrative exam: Morbidly obese individual lying in bed - Constitutional Vitals: Temp Pulse Resp BP Pulse Ox 98.0 F 83 21 160/86 92 07/25/18 16:04 07/25/18 20:15 07/25/18 20:15 07/25/18 20:15 07/25/18 20:15 General appearance: Present: no acute distress, mild distress, well-nourished - EENT Eyes: Present: PERRL ENT: hearing intact, clear oral mucosa - Neck Neck: Present: supple, normal ROM - Respiratory Respiratory effort: normal Respiratory: bilateral: CTA - Cardiovascular Heart rate: 74 Rhythm: regular Heart Sounds: Present: S1 & S2. Absent: rub, click - Extremities Extremities: no ischemia, pulses intact, pulses symmetrical, No edema, abnormal (Rt foot swelling present ) Peripheral Pulses: within normal limits - Abdominal General gastrointestinal: Present: soft, non-tender, non-distended, normal bowel sounds Female genitourinary: Present: normal - Integumentary Integumentary: Present: clear, warm, dry - Musculoskeletal Musculoskeletal: gait normal, strength equal bilaterally - Psychiatric Psychiatric: appropriate mood/affect, intact judgment & insight - Neurologic Neurologic: CNII-XII intact, moves all extremities Results - Labs CBC & Chem 7: 07/25/18 16:13 07/25/18 16:13 Labs: Laboratory Last Values WBC 6.2 K/mm3 (4.5-11.0) 07/25/18 16:13 RBC 4.15 M/mm3 (3.65-5.03) 07/25/18 16:13 Hgb 10.9 gm/dl (10.1-14.3) 07/25/18 16:13 Hct 34.0 % (30.3-42.9) 07/25/18 16:13 MCV 82 fl (79-97) 07/25/18 16:13 MCH 26 pg (28-32) L 07/25/18 16:13 MCHC 32 % (30-34) 07/25/18 16:13 RDW 17.1 % (13.2-15.2) H 07/25/18 16:13 Plt Count 332 K/mm3 (140-440) 07/25/18 16:13 Lymph % (Auto) 35.7 % (13.4-35.0) H 07/25/18 16:13 [place] % (Auto) 8.2 % (0.0-7.3) H 07/25/18 16:13 Eos % (Auto) 2.0 % (0.0-4.3) 07/25/18 16:13 Baso % (Auto) 0.6 % (0.0-1.8) 07/25/18 16:13 Lymph # 2.2 K/mm3 (1.2-5.4) 07/25/18 16:13 [place] # 0.5 K/mm3 (0.0-0.8) 07/25/18 16:13 Eos # 0.1 K/mm3 (0.0-0.4) 07/25/18 16:13 Baso # 0.0 K/mm3 (0.0-0.1) 07/25/18 16:13 Seg Neutrophils % 53.5 % (40.0-70.0) 07/25/18 16:13 Seg Neutrophils # 3.3 K/mm3 (1.8-7.7) 07/25/18 16:13 D-Dimer < 135.00 ng/mlDDU (0-234) 07/25/18 16:13 Sodium 140 mmol/L (137-145) 07/25/18 16:13 Potassium 4.2 mmol/L (3.6-5.0) 07/25/18 16:13 Chloride 97.0 mmol/L (98-107) L 07/25/18 16:13 Carbon Dioxide 32 mmol/L (22-30) H 07/25/18 16:13 Anion Gap 15 mmol/L 07/25/18 16:13 BUN 10 mg/dL (7-17) 07/25/18 16:13 Creatinine 0.8 mg/dL (0.7-1.2) 07/25/18 16:13 Estimated GFR > 60 ml/min 07/25/18 16:13 BUN/Creatinine Ratio 13 % 07/25/18 16:13 Glucose 108 mg/dL (65-100) H 07/25/18 16:13 Calcium 9.2 mg/dL (8.4-10.2) 07/25/18 16:13 Troponin T < 0.010 ng/mL (0.00-0.029) 07/25/18 18:58 NT-Pro-B Natriuret Pep 8.94 pg/mL (0-450) 07/25/18 16:13 HCG, Qual Negative (Negative) 07/25/18 16:13 - Imaging and Cardiology EKG: report reviewed (NSR 74/min lVH) Chest x-ray: report reviewed Imaging and Cardiology: CXR IMPRESSION: 1. Study degraded by artifact created by large body habitus. 2. No definite evidence of an acute pulmonary process. 3. Enlarged cardiac silhouette not significantly changed. 4. Prominence of the hilar structures bilaterally not significantly changed. This may represent adenopathy or prominent vascular structures. If further imaging is required, CT chest may be helpful. Xray Rt foot IMPRESSION: 1. Soft tissue swelling without evidence of acute bony abnormality. Assessment and Plan Advance Directives: Yes (Full code) VTE prophylaxis?: Chemical Plan of care discussed with patient/family: Yes - Patient Problems (1) Acute chest pain Current Visit: Yes Status: Acute Plan to address problem: Chest pain w/u including Lexiscan and serial troponins Diff dx of costochondritis and Gerd to be considered No chest wall tenderness (2) Hypertension Current Visit: Yes Status: Chronic Qualifiers: Hypertension type: essential hypertension Qualified Code(s): I10 - Essential (primary) hypertension Plan to address problem: BP 162/86 Cont antihypertensives Adjust meds if necessary (3) Morbid obesity Current Visit: Yes Status: Chronic Plan to address problem: Counselled Needs Bariatric surgery referral at discharge (4) KELLE (obstructive sleep apnea) Current Visit: No Status: Chronic Plan to address problem: CPAP (5) CHF (congestive heart failure) Current Visit: Yes Status: Chronic Qualifiers: Heart failure type: combined systolic and diastolic Plan to address problem: COnt lasix and Check ECHO (6) Foot contusion Current Visit: Yes Status: Acute Qualifiers: Laterality: right Plan to address problem: No fracture NSAIDs prn (7) DVT prophylaxis Current Visit: No Status: Acute Plan to address problem: OnLovenox
[2018-07-25] MEDS ORDERED: ULTRAM PO PRN (22:17)
[2018-07-25] MEDS: DILAUDID IV PRN (23:10)
[2018-07-25] MEDS: APRESOLINE IV PRN (23:11)
[2018-07-26] MEDS: ZOFRAN IV PRN ×2 (00:01→10:42)
[2018-07-26] MEDS: PROCARDIA XL PO SCH ×3 (01:09→23:32)
[2018-07-26] MEDS: DILAUDID IV PRN ×2 (05:46→09:49)
[2018-07-26] MEDS: APRESOLINE IV PRN (05:48)
[2018-07-26 06:05] LABS: Basophils % (Auto) 0.4 % (0.0-1.8); Eosinophils # (Auto) 0.1 K/mm3 (0.0-0.4); Eosinophils % (Auto) 0.8 % (0.0-4.3); Hematocrit 35.1 % (30.3-42.9); Hemoglobin 11.2 gm/dl (10.1-14.3); Lymphocytes # (Auto) 1.5 K/mm3 (1.2-5.4); Lymphocytes % (Auto) 18.6 % (13.4-35.0); Mean Corpuscular HGB Conc 32 % (30-34); Mean Corpuscular Volume 83 fl (79-97); Monocytes # (Auto) 0.4 K/mm3 (0.0-0.8); Monocytes % (Auto) 4.7 % (0.0-7.3); Platelet Count 334 K/mm3 (140-440); Red Blood Count 4.22 M/mm3 (3.65-5.03)
[2018-07-26 06:11] LABS: Alanine Aminotransferase 10 units/L (7-56); Albumin 3.8 g/dL (3.9-5); BUN/Creatinine Ratio 11; Blood Urea Nitrogen 9 mg/dL (7-17); Calcium 9.2 mg/dL (8.4-10.2); Hemolysis Index 6
[2018-07-26] MEDS: DUONEB *Not for PRN Use IH SCH ×3 (08:11→20:00)
[2018-07-26] MEDS: HumaLOG SUB-Q SCH ×4 (08:12→23:35)
[2018-07-26] MEDS: TENORMIN PO SCH (09:48)
[2018-07-26] MEDS: GLUCOPHAGE PO SCH ×2 (09:48→17:43)
[2018-07-26] MEDS: COZAAR PO SCH (09:48)
[2018-07-26] MEDS: HCTZ PO SCH (09:49)
[2018-07-26] MEDS: PEPCID PO SCH ×2 (09:49→21:49)
[2018-07-26] MEDS: BENTYL PO SCH (09:50)
[2018-07-26] MEDS: SODIUM CHLORIDE FLUSH SYRINGE 10 ML IV SCH ×2 (09:50→21:49)
[2018-07-26] MEDS: FLEXERIL PO PRN ×2 (13:40→21:59)
--- NOTE | 2018-07-26 14:30 | Progress Note ---
Assessment and Plan Assessment and plan: (1) Acute chest pain - Troponin negative - Patient did stress test 6 months ago and was normal - Stress test was cancelled by Dr Sanchez because of patient's weight (2) Hypertension - Continue on BP meds -Adjust as needed (3) Morbid obesity - Counseled about weight loss and given resources (4) KELLE (obstructive sleep apnea) - continue CPAP (5) CHF (congestive heart failure) Cont lasix and Check ECHO Stable (6) Foot contusion No fracture, there is a soft tissue swelling NSAIDs and percocet for pain control Need PT evaluation (7) DVT prophylaxis OnLovenox History Interval history: Patient was seen and evaluated this morning, patient states chest pain is getti ng better, pain in the foot is very bad and she can't step on her foot. Hospitalist Physical - Physical exam Narrative exam: Not in cardiopulmonary distress. The patient is morbidly obese Vital signs as documented. Head exam is unremarkable. No scleral icterus . Neck is without jugular venous distension, thyromegaly, or carotid bruits. Lungs are clear to auscultation. Cardiac exam reveals regular rate and Rhythm. First and second heart sounds normal. No murmurs, rubs or gallops. Abdominal exam reveals normal bowel sounds, no masses, no organomegaly and no aortic enlargement. Extremities mild swelling of the left foot. 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 No focal weakness. - Constitutional Vitals: Temp Pulse Resp BP Pulse Ox 98.1 F 88 18 111/92 95 07/26/18 13:10 07/26/18 13:40 07/26/18 13:40 07/26/18 13:11 07/26/18 13:11 General appearance: Present: no acute distress, mild distress, well-nourished Results - Labs CBC & Chem 7: 07/26/18 04:23 07/26/18 04:23 Labs: Laboratory Last Values WBC 7.9 K/mm3 (4.5-11.0) 07/26/18 04:23 RBC 4.22 M/mm3 (3.65-5.03) 07/26/18 04:23 Hgb 11.2 gm/dl (10.1-14.3) 07/26/18 04:23 Hct 35.1 % (30.3-42.9) 07/26/18 04:23 MCV 83 fl (79-97) 07/26/18 04:23 MCH 27 pg (28-32) L 07/26/18 04:23 MCHC 32 % (30-34) 07/26/18 04:23 RDW 17.0 % (13.2-15.2) H 07/26/18 04:23 Plt Count 334 K/mm3 (140-440) 07/26/18 04:23 Lymph % (Auto) 18.6 % (13.4-35.0) 07/26/18 04:23 [place] % (Auto) 4.7 % (0.0-7.3) 07/26/18 04:23 Eos % (Auto) 0.8 % (0.0-4.3) 07/26/18 04:23 Baso % (Auto) 0.4 % (0.0-1.8) 07/26/18 04:23 Lymph # 1.5 K/mm3 (1.2-5.4) 07/26/18 04:23 [place] # 0.4 K/mm3 (0.0-0.8) 07/26/18 04:23 Eos # 0.1 K/mm3 (0.0-0.4) 07/26/18 04:23 Baso # 0.0 K/mm3 (0.0-0.1) 07/26/18 04:23 Seg Neutrophils % 75.5 % (40.0-70.0) H 07/26/18 04:23 Seg Neutrophils # 6.0 K/mm3 (1.8-7.7) 07/26/18 04:23 D-Dimer < 135.00 ng/mlDDU (0-234) 07/25/18 16:13 Sodium 142 mmol/L (137-145) 07/26/18 04:23 Potassium 4.3 mmol/L (3.6-5.0) 07/26/18 04:23 Chloride 96.9 mmol/L (98-107) L 07/26/18 04:23 Carbon Dioxide 34 mmol/L (22-30) H 07/26/18 04:23 Anion Gap 15 mmol/L 07/26/18 04:23 BUN 9 mg/dL (7-17) 07/26/18 04:23 Creatinine 0.8 mg/dL (0.7-1.2) 07/26/18 04:23 Estimated GFR > 60 ml/min 07/26/18 04:23 BUN/Creatinine Ratio 11 % 07/26/18 04:23 Glucose 175 mg/dL (65-100) H 07/26/18 04:23 POC Glucose 127 (70-105) H 07/26/18 07:39 Hemoglobin A1c 6.5 % (4-6) H 07/25/18 22:53 Calcium 9.2 mg/dL (8.4-10.2) 07/26/18 04:23 Total Bilirubin 0.30 mg/dL (0.1-1.2) 07/26/18 04:23 AST 13 units/L (5-40) 07/26/18 04:23 ALT 10 units/L (7-56) 07/26/18 04:23 Alkaline Phosphatase 55 units/L (35-129) 07/26/18 04:23 Troponin T < 0.010 ng/mL (0.00-0.029) 07/26/18 04:23 NT-Pro-B Natriuret Pep 8.94 pg/mL (0-450) 07/25/18 16:13 Total Protein 7.8 g/dL (6.3-8.2) 07/26/18 04:23 Albumin 3.8 g/dL (3.9-5) L 07/26/18 04:23 Albumin/Globulin Ratio 1.0 % 07/26/18 04:23 HCG, Qual Negative (Negative) 07/25/18 16:13 Active Medications - Current Medications Current Medications: Generic Name Dose Route Start Last Admin Trade Name Freq PRN Reason Stop Dose Admin Acetaminophen 650 mg 07/25/18 22:16 Tylenol PO Q4H PRN Pain MILD(1-3)/Fever >100.5/ABDULLAHI Albuterol/Ipratropium 1 ampul 07/26/18 08:00 07/26/18 13:39 Duoneb *Not For Prn Use* IH 1 ampul QIDRT SUSY Administration Atenolol 50 mg 07/26/18 10:00 07/26/18 09:48 Tenormin PO 50 mg DAILY SUSY Administration Cyclobenzaprine HCl 10 mg 07/25/18 22:17 07/26/18 13:40 Flexeril PO 10 mg TID PRN Administration Muscle Spasm Dicyclomine HCl 20 mg 07/26/18 10:00 07/26/18 09:50 Bentyl PO 20 mg QDAY [facility] Administration Enoxaparin Sodium 40 mg 07/26/18 22:00 Lovenox SUB-Q QDAY@2200 [facility] Famotidine 20 mg 07/26/18 10:00 07/26/18 09:49 Pepcid PO 20 mg BID SUSY Administration Hydralazine HCl 5 mg 07/25/18 22:47 07/26/18 05:48 Apresoline IV 5 mg Q4H PRN Administration Hypertension Hydrochlorothiazide 12.5 mg 07/26/18 10:00 07/26/18 09:49 Hctz PO 12.5 mg QDAY SUSY Administration Ibuprofen 600 mg 07/26/18 18:00 Motrin PO Q6HR [facility] Insulin Human Lispro 0 unit 07/26/18 07:30 07/26/18 13:41 Humalog SUB-Q Not Given ACHS [facility] Protocol Losartan Potassium 50 mg 07/26/18 10:00 07/26/18 09:48 Cozaar PO 50 mg QDAY [facility] Administration Metformin HCl 500 mg 07/26/18 08:00 07/26/18 09:48 Glucophage PO Not Given BIDDIAB [facility] Nifedipine 90 mg 07/26/18 00:00 07/26/18 13:40 Procardia Xl PO 90 mg Q12H S[facility] Administration Ondansetron HCl 4 mg 07/25/18 22:16 07/26/18 10:42 Zofran IV 4 mg Q8H PRN Administration Nausea And Vomiting Oxycodone/Acetaminophen 2 tab 07/26/18 14:20 Percocet 5/325 PO Q6H PRN Pain, Moderate (4-6) Sodium Chloride 10 ml 07/26/18 10:00 07/26/18 09:50 Sodium Chloride Flush Syringe 10 Ml IV 10 ml BID SUSY Administration Sodium Chloride 10 ml 07/25/18 22:16 Sodium Chloride Flush Syringe 10 Ml IV PRN PRN LINE FLUSH Tramadol HCl 50 mg 07/25/18 22:17 Ultram PO Q6H PRN Pain Nutrition/Malnutrition Assess - Dietary Evaluation Nutrition/Malnutrition Findings: Nutrition Notes Start: 07/26/18 11:50 Freq: Status: Active Protocol: Document 07/26/18 11:50 RD (Rec: 07/26/18 12:56 RD [email or web address]) Co-Sign 07/26/18 11:50 LP Nutrition Notes Need for Assessment generated from: MD Order Initial or Follow up Assessment Current Diagnosis COPD,Coronary Artery Disease, Diabetes,Hypertension,Heart Failure Other Pertinent Diagnosis KELLE, anemia, morbid obesity, foot contusion, SOB, chest pain Current Diet cardiac Labs/Tests BG 175 A1c 6.5 Pertinent Medications Humalog Metformin Height 5 ft 6 in Weight 184.6 kg [place] Body Weight (kg) 59.09 BMI 65.7 Weight Status Morbidly Obese Subjective/Other Information MD consult for diet education. Pt states she does not have Diabetes. Pt is refusing to take Metformin per RN. Pt listened to education with her eyes closed. Pt asked questions about normal blood glucose levels and A1c. #1 Nutrition Diagnosis Food and nutrition-related knowledge deficit Etiology Unaware of DM diagnosis As Evidenced by Signs and Symptoms Lack of knowledge of DM management, A1c of 6.5 Is patient on ventilator? No Is Patient Ambulatory and/or Out of Bed No REE-([place] Jeor-confined to bed) 2999.592 Kcal/Kg value to use for calculation 11 Approximate Energy Requirements Using 2031 kcal/Kg Calculation Used for Recommendations [place] or Additional Notes Protein needs: (0.8-1g/kg) 97- 121g/day Fluid needs: 1mL/kcal Nutrition Intervention Change Diet Order: Change to Consistent CHO/ cardiac Teaching Recipient Patient Learning Readiness Fair Teaching Methods Discussion,Handout Response to Teaching Verbalize understanding Education Handouts Provided CHO counting Barriers to Learning No Barriers RD phone number provided Yes Patient aware of follow up options Yes Goal #1 Adhere to Consistent CHO recommendations Anticipated Discharge Needs: consistent CHO Revisit per MD consult or patient Sign Off request:
[2018-07-26] MEDS: IBUPROFEN PO SCH ×2 (17:43→23:32)
[2018-07-26] MEDS ORDERED: LOVENOX SUB-Q SCH (22:00)
[2018-07-26] MEDS: PERCOCET 5/325 PO PRN (23:32)
[2018-07-27] MEDS: IBUPROFEN PO SCH ×3 (05:38→18:05)
[2018-07-27 06:59] LABS: BUN/Creatinine Ratio 12; Blood Urea Nitrogen 13 mg/dL (7-17); Calcium 9.1 mg/dL (8.4-10.2); Hemolysis Index 0
[2018-07-27] MEDS: HumaLOG SUB-Q SCH ×3 (07:30→18:04)
[2018-07-27] MEDS: DUONEB *Not for PRN Use IH SCH ×2 (08:03→14:08)
[2018-07-27] MEDS: COZAAR PO SCH (09:36)
[2018-07-27] MEDS: PEPCID PO SCH (09:36)
[2018-07-27] MEDS: TENORMIN PO SCH (09:36)
[2018-07-27] MEDS: GLUCOPHAGE PO SCH ×2 (09:36→18:04)
[2018-07-27] MEDS: BENTYL PO SCH (09:36)
[2018-07-27] MEDS: PERCOCET 5/325 PO PRN (09:37)
[2018-07-27] MEDS: HCTZ PO SCH (10:00)
[2018-07-27] MEDS: SODIUM CHLORIDE FLUSH SYRINGE 10 ML IV SCH (10:00)
[2018-07-27] MEDS: FLEXERIL PO PRN (12:04)
[2018-07-27] MEDS: PROCARDIA XL PO SCH (12:04)
--- NOTE | 2018-07-27 14:25 | Discharge Summary ---
Providers - Providers Date of Admission: 07/25/18 18:24 Attending physician: NBA YOUNG MD 07/25/18 22:17 Consult to Dietitian/Nutrition [CONS] Routine Physician Instructions: Reason For Exam: Reason for Consult: Diet education 07/26/18 09:19 Physical Therapy Evaluation and Treat [CONS] Routine Comment: Reason For Exam: right foot pain [facility] Reason for admission: Chest pain, KELLE, Right foot swelling Condition: Fair Pertinent studies: x-ray of the right foot; soft tissue swelling of the right foot, no fracture Hospital course: 48-year-old -[place] female with PMH of CHF CAD COPD HTN Anemia and KELLE and Obesity comes in for Chest pain since 11 am.Sharp intermittent in nature.7/10 in intensity.No radiation.No diaphoresis palpitations.Has some SOB which is always present sec to her weight and chf.No orthopnea.Rt foot pain sec to droping O2 tank on her foot. Noexacerbating or relieving factors for Chest pain patient was admitted and stress test was ordered but cancelled because the patient had stress test which was negative acute ischemia. Chest pain resolved. Patient's main complaint was right foot swelling and x-ray was done and showed soft tissue swelling, no bone fracture. Patient was evaluated by PT and re commend walker and was given. NSAIDs and pain medicine were given at the time of discharge. Patient has A1C of 6.5 and was given metformin at the time of discharge. Patient was stable at the time of DC. Disposition: [id number] HOME UNDER HOME [facility] Time spent for discharge: 32 minutes - Discharge Diagnoses (1) Acute chest pain Status: Acute (2) Contusion of foot Status: Acute (3) Hypertension Status: Chronic Qualifiers: Hypertension type: essential hypertension Qualified Code(s): I10 - Essential (primary) hypertension (4) Morbid obesity Status: Chronic (5) KELLE (obstructive sleep apnea) Status: Chronic Core Measure Documentation - Palliative Care Palliative Care/ Comfort Measures: Not Applicable - Core Measures Any of the following diagnoses?: none Exam - Physical Exam Narrative exam: Not in cardiopulmonary distress. The patient is morbidly obese Vital signs as documented. Head exam is unremarkable. No scleral icterus . Neck is without jugular venous distension, thyromegaly, or carotid bruits. Lungs are clear to auscultation. Cardiac exam reveals regular rate and Rhythm. First and second heart sounds normal. No murmurs, rubs or gallops. Abdominal exam reveals normal bowel sounds, no masses, no organomegaly and no aortic enlargement. Extremities mild swelling of the left foot, with mild tenderness, patient not able to put weight. TONGER: Alert and oriented 3. No focal weakness. - Constitutional Vitals: Temp Pulse Resp BP Pulse Ox 97.7 F 69 20 132/73 93 07/27/18 11:51 07/27/18 14:11 07/27/18 14:11 07/27/18 11:51 07/27/18 11:51 Plan Activity: no restrictions Weight Bearing Status: Weight Bear as Tolerated Diet: low fat, low salt, diabetic Special Instructions: physical therapy Durable Medical Equipment Needed Upon Discharge: Walker-Standard [facility]Primary Care Provider[facility] - 3-5 Days Prescriptions: metFORMIN [Glucophage] 500 mg PO BIDDIAB #60 tablet Ibuprofen [Motrin 600 MG tab] 600 mg PO Q8H PRN #20 tablet PRN Reason: Pain , Severe (7-10) oxyCODONE /ACETAMINOPHEN [Percocet 5/325 mg] 1 tab PO Q6HR PRN #14 tablet PRN Reason: Pain
[2018-07-27 16:56] VITALS: BP 131/80
== END 2018-07-27 19:08 | disposition home or self-care (01) | DRG 605 ==
LOC: ED 15:20 → 4A 18:24
PROVIDERS: ADMIT Internal Medicine; ATTEND Internal Medicine
DX: S90.31XA Contusion of right foot, initial encounter (principal); R07.9 Chest pain, unspecified; E66.01 Morbid (severe) obesity due to excess calories; E11.9 Type 2 diabetes mellitus without complications; I25.10 Atherosclerotic heart disease of native coronary artery without angina pectoris; J44.9 Chronic obstructive pulmonary disease, unspecified; K21.9 Gastro-esophageal reflux disease without esophagitis; I50.30 Unspecified diastolic (congestive) heart failure; X58.XXXA Exposure to other specified factors, initial encounter; G47.33 Obstructive sleep apnea (adult) (pediatric); I11.0 Hypertensive heart disease with heart failure; I25.2 Old myocardial infarction; Z90.721 Acquired absence of ovaries, unilateral; Z79.84 Long term (current) use of oral hypoglycemic drugs; Z68.44 Body mass index [BMI] 60.0-69.9, adult; Z71.3 Dietary counseling and surveillance; Y93.89 Activity, other specified; Y92.098 Other place in other non-institutional residence as the place of occurrence of the external cause; Y99.8 Other external cause status
CPT/HCPCS: 36415; 71045; 80048; 80053; 82962; 83036; 83880; 84484; 84703; 85025; 85379; 87116; 93005; 93010; 94640; 94760; G0378; J0360; J1170; J1650; J1815; J2270; J2405

== ENCOUNTER 2018-10-17 12:45 | Outpatient (CLI) | payer MEDICAID ==
[2018-10-17] MEDS ORDERED: XYLOCAINE TOPICAL 4% TP ONE (13:06)
== END 2018-10-17 12:46 | disposition home or self-care (01) ==
LOC: WOUND 12:45
PROVIDERS: ATTEND Surgery
DX: T81.89XS Other complications of procedures, not elsewhere classified, sequela (principal); I10 Essential (primary) hypertension; E11.9 Type 2 diabetes mellitus without complications; K21.9 Gastro-esophageal reflux disease without esophagitis; J45.909 Unspecified asthma, uncomplicated; G47.33 Obstructive sleep apnea (adult) (pediatric); E66.01 Morbid (severe) obesity due to excess calories; Z68.43 Body mass index [BMI] 50.0-59.9, adult; Y83.8 Other surgical procedures as the cause of abnormal reaction of the patient, or of later complication, without mention of misadventure at the time of the procedure
CPT/HCPCS: 11042; G0463; 99215

== ENCOUNTER 2018-10-31 09:18 | Outpatient (CLI) | payer MEDICAID ==
[2018-10-31] MEDS ORDERED: XYLOCAINE TOPICAL 4% TP ONE (11:00)
[2018-10-31] MEDS ORDERED: SILVER NITRATE TP ONE (11:00)
== END 2018-10-31 09:19 | disposition home or self-care (01) ==
LOC: WOUND 09:18
PROVIDERS: ATTEND Surgery
DX: L02.221 Furuncle of abdominal wall (principal); S31.101D Unspecified open wound of abdominal wall, left upper quadrant without penetration into peritoneal cavity, subsequent encounter; E11.9 Type 2 diabetes mellitus without complications; I10 Essential (primary) hypertension; K21.9 Gastro-esophageal reflux disease without esophagitis; J45.909 Unspecified asthma, uncomplicated; G47.33 Obstructive sleep apnea (adult) (pediatric); E66.01 Morbid (severe) obesity due to excess calories; Z68.43 Body mass index [BMI] 50.0-59.9, adult; X58.XXXD Exposure to other specified factors, subsequent encounter

== ENCOUNTER 2018-11-22 10:06 | Outpatient (CLI) | payer MEDICAID | END 2018-11-22 10:07 | disposition home or self-care (01) | LOC: WOUND 10:06 | PROVIDERS: ATTEND Surgery | DX: S31.101D Unspecified open wound of abdominal wall, left upper quadrant without penetration into peritoneal cavity, subsequent encounter (principal); J45.909 Unspecified asthma, uncomplicated; E11.9 Type 2 diabetes mellitus without complications; G47.30 Sleep apnea, unspecified; E66.9 Obesity, unspecified; K21.9 Gastro-esophageal reflux disease without esophagitis; I10 Essential (primary) hypertension; Z68.43 Body mass index [BMI] 50.0-59.9, adult; X58.XXXD Exposure to other specified factors, subsequent encounter | CPT/HCPCS: 99212; G0463 ==

== ENCOUNTER 2020-02-20 13:10 | Emergency (ER) | payer MEDICAID ==
[2020-02-20 13:16] VITALS: BP 182/99
--- NOTE | 2020-02-20 14:38 | XRay Report ---
CHEST 2 VIEWS INDICATION: Chest Pain. COMPARISON: 07/25/2018 FINDINGS: Support devices: None. Heart: Within normal limits. Lungs: No acute air space or interstitial disease. Prominent hilum again noted bilaterally Pleura: No significant pleural effusion. No pneumothorax. Additional findings: None. IMPRESSION: 1. Improved aeration throughout both lungs as compared to previous exam Signer Name: Clifford Mcdonald MD Signed: 02/20/2020 2:34 PM Workstation Name: [id number]
[2020-02-20 15:01] LABS: Blood Urea Nitrogen 5 mg/dL (7-17); Calcium 9.7 mg/dL (8.4-10.2); Hemolysis Index 12
[2020-02-20 15:04] LABS: BUN/Creatinine Ratio 7
[2020-02-20 15:05] LABS: Basophils % (Auto) 0.4 % (0.0-1.8); Eosinophils # (Auto) 0.1 K/mm3 (0.0-0.4); Eosinophils % (Auto) 1.2 % (0.0-4.3); Hematocrit 39.4 % (30.3-42.9); Hemoglobin 13.1 gm/dl (10.1-14.3); Lymphocytes # (Auto) 2.5 K/mm3 (1.2-5.4); Lymphocytes % (Auto) 28.2 % (13.4-35.0); Mean Corpuscular HGB Conc 33 % (30-34); Mean Corpuscular Volume 89 fl (79-97); Monocytes # (Auto) 0.4 K/mm3 (0.0-0.8); Monocytes % (Auto) 4.6 % (0.0-7.3); Platelet Count 313 K/mm3 (140-440); Red Cell Distribution Width 15.2 % (13.2-15.2)
== END 2020-02-20 17:00 | disposition left against medical advice (07) ==
LOC: ED 13:10
DX: R07.89 Other chest pain (principal); R06.02 Shortness of breath; R20.2 Paresthesia of skin; Z53.21 Procedure and treatment not carried out due to patient leaving prior to being seen by health care provider
CPT/HCPCS: 36415; 71046; 80048; 84484; 85025; 93005